=== PATIENT | male | born 1940 | race African-American/Black ===

== ENCOUNTER → 2017-09-03 | Outpatient (CLI) | payer MEDICARE | END | disposition home or self-care (01) | LOC: RAD 10:59 | DX: R07.89 Other chest pain (principal) | CPT/HCPCS: 71046 ==

== ENCOUNTER → 2018-08-18 | Outpatient (CLI) | payer MEDICARE ==
[2016-08-02 14:35] VITALS: BP 158/84
[~2018-08-18] MED LIST: AMLO10TA6 PO; CLON0.2T PO; HYDR-2145 PO; HYDR12.58 PO; IRBE1TAB3 PO; METO-269 PO; REGADENOSON 0.4 MG/5 ML DISP.SYRIN. IV ONE
--- NOTE | 2018-08-18 12:45 | CARD ---
MR#: [id number] Date of Study: 08/18/2018 Ordering Physician: REY FREEMAN, Referring Physician: REY FREEMAN, Tech: Brielle Munson APPROVED REPORT EXAM: Two-dimensional and M-mode echocardiogram with Doppler and color Doppler. Other Information Quality : AverageHR: 78bpm INDICATION Murmur RISK FACTORS Hypertension 2D DIMENSIONS RVDd3.7 (2.9-3.5cm)Left Atrium(2D)3.8 (1.6-4.0cm) IVSd1.4 (0.7-1.1cm)Aortic Root(2D)3.2 (2.0-3.7cm) LVDd5.1 (3.9-5.9cm)LVOT Diameter2.1 (1.8-2.4cm) PWd1.3 (0.7-1.1cm)LVDs2.8 (2.5-4.0cm) FS (%) 44.5 %SV93.4 ml Aortic Valve AoV Peak Chapo.137.1cm/sAoV VTI21.4cm AO Peak GR.7.5mmHgLVOT Peak Chapo.98.4cm/s LVOT VTI 20.87cmAO Mean GR.3mmHg NOE (VMAX)1.71kh3EQB (VTI)3.39cm2 Mitral Valve MV E Fiynrtyz08.7cm/sMV DECEL HBQM596ok MV A Sfrholow706.1cm/sMV HUV15rg E/A Ratio0.5MVA (PHT)4.07cm2 TDI E/Lateral E'7.1E/Medial E'8.9 Pulmonary Valve PV Peak Mzvaxdlm98.1cm/sPV Peak Grad.4mmHg Tricuspid Valve TR P. Avfwxeox590js/sRAP JWCKVTIX9hrRq TR Peak Gr.89zkMbRNXL20nmUo Pulmonary Vein S1 Ffvqxncv79.1cm/sD2 Llfatlxy72.3cm/s PVa ssdbjort481uhgk LEFT VENTRICLE The left ventricle is normal size. There is mild to moderate concentric left ventricular hypertrophy. The left ventricular systolic function is normal The Ejection Fraction is 55-60%. There is normal LV segmental wall motion. Transmitral Doppler flow pattern is Grade I-abnormal relaxation pattern. RIGHT VENTRICLE The right ventricle is normal size. There is normal right ventricular wall thickness. The right ventr icular systolic function is normal. ATRIA The left atrium is borderline dilated. The right atrium size is normal. 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 AORTIC VALVE The aortic valve is thickened but opens well. Doppler and Color Flow revealed trace aortic regurgitat ion. There is no significant aortic valvular stenosis. Calculated aortic valve area is 3.39 cm2 with maximum pressure gradient of 8 mmHg and mean pressure gradient of 3 mmHg. MITRAL VALVE The mitral valve is thickened but opens well. There is no evidence of mitral valve prolapse. There is no mitral valve stenosis. Doppler and Color Flow revealed trace mitral valve regurgitation. TRICUSPID VALVE The tricuspid valve leaflets are thickened , but open well. Doppler and Color Flow revealed trace tri cuspid regurgitation. There is no tricuspid valve stenosis. PULMONIC VALVE The pulmonic valve is not well visualized. Doppler and Color Flow revealed trace pulmonic valvular re gurgitation. GREAT VESSELS The aortic root is normal in size. The IVC was not well visualized. PERICARDIAL EFFUSION There is no evidence of significant pericardial effusion. Critical Notification Critical Value: No <Conclusion> The left ventricle is normal size. The left ventricular systolic function is normal The Ejection Fraction is 55-60%. There is mild to moderate concentric left ventricular hypertrophy. There is no significant aortic valvular stenosis. Calculated aortic valve area is 3.39 cm2 with maximum pressure gradient of 8 mmHg and mean pressure g radient of 3 mmHg. Doppler and Color Flow revealed trace aortic regurgitation. Doppler and Color Flow revealed trace mitral valve regurgitation. Doppler and Color Flow revealed trace tricuspid regurgitation. Signed by : Hugh Graham MD Electronically Approved : 08/18/2018 12:43:39
--- NOTE | 2018-08-18 13:35 | RAD ---
MR#: [id number] Date of Study: 08/18/2018 Ordering Physician: REY FREEMAN Referring Physician: LUIS CARLOS LIGHT Tech: RT Salo (R) (N) APPROVED REPORT Test Type: Pharmacological Stress Nurse/Tech: Kathryn GONCALVES Test Indications: Dyspnea on exertion Cardiac History: HTN, See EMR Medications: ASA 81mg, See EMR Medical History: See EMR Resting ECG: SR with PVCs Resting Heart Rate: 69 bpm Resting Blood Pressure: 143/79mmHg Pretest Chest Pain: No chest pain Nurse/Tech Notes Lungs CTA, Heart tones regular Consent: The procedure was explained to the patient in lay terms. Informed consent was witnessed. Nash eout was entered into [employer]. History and Stress Test performed by RYAN Linton Pharm. Details Pharmacologic stress testing was performed using 0.4mg per 5ml of regadenoson given intravenously ove r 7-10 seconds. Stress Symptoms No chest pain or symptoms. POST EXERCISE Reason for Termination: Infusion complete Max HR: 183 bpm Max Blood Pressure: 139/72mmHg Chest Pain: No. Arrhythmia: Yes. Frequent PVCs before and during stress test. ST Change: No. INTERPRETATION Stress EKG Conclusion: Baseline EKG showed sinus rhythm, LVH and PVC. No ischemic changes at peak st ress. PVC's without any significant arrhythmias. Imaging Protocol IMAGE PROTOCOL: Rest Tc-99m/stress Tc-99m 1 day Rest: Stress: Viability: Radiopharm.Tc99m OptpkiibkDz25v Sestamibi Dose10.4mCi 33.1mCi Duration 13min. 13min. Img Date 08/18/2018 08/18/2018 Inj-Img Psya34lfs. 60min. Rest Admin Site:IV - Left AntecubitalAdministrator:RT Salo (R)(N) Stress Admin Site: IV - Left AntecubitalAdministrator: RYAN Linton STRESS DATA End Diast. Vol.122.0mlLVEDV index BSA52.0ml End Syst. Vol.48.0mlLVESV index BSA21.0ml Myocardial Aijv014.0gEject. Eicimube08.0% Stress Scores Regional WT1.00Summed WT3.00 Regional WM0.00Summed WM5.00 Study quality was good. Left Ventricular size was Normal at Rest and Stress. Lung uptake was . Left Ventricular ejection fraction is 61%. The rest and stress images show normal perfusion, normal contraction and thickening. LV Perf. Quant 17 Seg. SSS0.00 17 Seg. SRS1.00 17 Seg. SDS0.00 Stress Defect Extent (% LAD)0.00Rest Defect Extent (% LAD)0.00Rev. Defect Extent (% LAD)0.00 Stress Defect Extent (% LCX) 0.00Rest Defect Extent (% LCX)5.00Rev. Defect Extent (% LCX)0.00 Stress Defect Extent (% RCA)0.00Rest Defect Extent (% RCA)8.90Rev. Defect Extent (% RCA)0.00 Stress Defect Extent (% ANA M)0.00Rest Defect Extent (% ANA M)2.80Rev. Defect Extent (% ANA M)0.00 Conclusion 1. Regadenoson cardioisotope stress test did not show any evidence of ischemia or infarct. 2. Normal left ventricular systolic function with ejection fraction calculated at 61%. 3. Low risk for cardiac events. Signed by : Rey Freeman, Electronically Approved : 08/18/2018 13:33:38
--- NOTE | 2018-08-18 13:51 | RAD ---
MR#: [id number] Date of Study: 08/18/2018 Ordering Physician: REY FREEMAN, Referring Physician: REY FREEMAN, Tech: Joby Cook, AMANDA, RDMS, RVT, RDCS, RTR APPROVED REPORT Patient Location : OUT-PATIENT Indications venous insufficiency Findings Grayscale images of the bilateral saphenofemoral junctions do not reveal any obvious evidence of thro mbus. The right great saphenous vein measures 6.4 mm and does not reflux. The left great saphenous vein saul sures 7.2 mm and does not reflux. The bilateral lesser saphenous veins do not show any evidence of re flux. Critical Notification Critical Value: No <Conclusion> No significant reflux. Signed by : Peirco Hood, Electronically Approved : 08/18/2018 13:49:07
== END | disposition home or self-care (01) ==
LOC: NM 09:10
PROVIDERS: ATTEND Internal Medicine Cardiovascular Disease
DX: I87.2 Venous insufficiency (chronic) (peripheral) (principal); I11.9 Hypertensive heart disease without heart failure
CPT/HCPCS: 78452; 93017; 93306; 93970; 96374; A9500; J2785

== ENCOUNTER 2019-06-06 16:57 | Emergency (ER) | payer MEDICARE ==
[~2019-06-06] VITALS: Ht 182.9 cm; Wt 113.4 kg
[~2019-06-06 16:57] MED LIST changes: -AMLO10TA6 PO; +AMLO10TA8 PO; -REGADENOSON 0.4 MG/5 ML DISP.SYRIN. IV ONE
[2019-06-06 18:00] LABS: BASO % 1 % (0-3); EOS # 0.1 x10^3/uL (0.0-0.7); EOS % 4 % (0-3); HEMATOCRIT 42.4 % (39.0-53.0); HEMOGLOBIN 14.2 g/dL (13.0-17.5); LYMPH # 0.8 x10^3/uL (1.0-4.8); LYMPH % 19 % (24-48); MEAN CORPUSCULAR HEMOGLOBIN 29 pg (25-35); MEAN CORPUSCULAR HGB CONC 34 g/dL (31-37); MEAN CORPUSCULAR VOLUME 87 fL (79-100); MONO # 0.5 x10^3/uL (0.0-1.1); MONO % 13 % (0-9); NEUT # 2.6 x10^3/uL (1.8-7.7); NEUT % 64 % (31-73); PLATELET COUNT 286 x10^3/uL (140-400); RED BLOOD COUNT 4.87 x10^6/uL (4.30-5.70); RED CELL DISTRIBUTION WIDTH 15.3 % (11.5-14.5); WHITE BLOOD COUNT 4.1 x10^3/uL (4.0-11.0)
[2019-06-06 18:12] LABS: CALCIUM 9.3 mg/dL (8.5-10.1); CREATININE 1.1 mg/dL (0.7-1.3); GFR 78.3; POTASSIUM 3.9 mmol/L (3.5-5.1)
[2019-06-06 18:13] LABS: PROTHROMBIN TIME PATIENT 13.4 SEC (11.7-14.0)
[2019-06-06 18:21] LABS: ALBUMIN 3.5 g/dL (3.4-5.0); ALBUMIN/GLOBULIN RATIO 0.6 (1.0-1.7); TOTAL BILIRUBIN 0.3 mg/dL (0.2-1.0); TOTAL PROTEIN 9.2 g/dL (6.4-8.2)
[2019-06-06 19:38] VITALS: BP 151/92
--- NOTE | 2019-06-06 19:43 | RAD ---
EXAM: AP View of the chest DATE: 06/06/2019 5:59 PM INDICATION: Bilateral lower extremity swelling COMPARISON: 09/03/2017 FINDINGS/ IMPRESSION: Heart is mildly enlarged. Aorta is tortuous. High density rounded hilar and right lung base nodules likely calcified granuloma. No focal parenchymal airspace opacity. No pleural effusion or pneumothorax. Electronically signed by: Taye Gross MD (06/06/2019 7:40 PM) [facility] – [place]
--- NOTE | 2019-06-06 19:46 | RAD ---
Examination: Bilateral Lower Extremity Venous Doppler Ultrasound History: Bilateral leg swelling Comparison: None Procedure: Raya scale, color flow 2D and spectal waveform analysis images are obtained with and without compression in the area of the common femoral vein, superficial femoral vein - femoral vein junction, main femoral vein (superficial femoral vein) and popliteal vein. Veins of the proximal calf are also imaged. Findings: There is normal duplex flow, color flow and compressibility of all visualized vein segments. No evidence of deep venous thrombus is present. Limited visualization of the left leg peroneal and posterior tibialis veins. Mild soft tissue edema bilateral lower legs. Impression: No evidence of DVT in the bilateral lower extremity. Electronically signed by: Subhash Mcfarland MD (06/06/2019 7:43 PM) [facility]
--- NOTE | 2019-06-06 19:53 | PHYS DOC ---
Past Medical History Past Medical History: Hypertension, Other Additional Past Medical Histor: urinary retention, prostate and bladder ca Past Surgical History: Cancer Surgery, Cholecystectomy, Other Additional Past Surgical Histo: bladder and prostate, rt eye cataract Alcohol Use: None Drug Use: None Adult General Chief Complaint Chief Complaint: LOWER EXTREMITY SWELLING HPI HPI Patient is a 78 year old AA male, accompanied by his family, who presents to the ER with complaints of bilateral lower extremity swelling and bilateral lower extremity weakness for the last week. PT states the weakness is worse in his RLE than his LLE. He states that his primary care doctor placed him on a muscle relaxer and prescribed some pain medication to him a few days ago for the same problems. Pt denies any chest pain, shortness of breath, fever, cough, nausea, vomiting, diarrhea, abdominal pain, or back pain. He denies any erythema, warmth, or drainage from his lower legs. PT denies any recent travel or extended period of time in bed. He currently denies any pain. Pt states he takes lasix but denies any hx of CHF and is not sure why he takes this medication. Review of Systems Review of Systems Constitutional: Denies fever or chills [] Eyes: Denies change in visual acuity, redness, or eye pain [] HENT: Denies nasal congestion or sore throat [] Respiratory: Denies cough or shortness of breath [] Cardiovascular: No additional information not addressed in HPI [] GI: Denies abdominal pain, nausea, vomiting, or diarrhea [] : Denies dysuria or hematuria [] Musculoskeletal: see HPI Integument: Denies rash or skin lesions [] Neurologic: Denies headache, focal weakness or sensory changes [] Endocrine: Denies polyuria or polydipsia [] Complete systems were reviewed and found to be within normal limits, except as documented in this note. Allergies Allergies Allergies Coded Allergies Type Severity Reaction Last Updated Verified No Known Drug Allergies 03/01/14 No Physical Exam Physical Exam Constitutional: Well developed, well nourished, no acute distress, non-toxic appearance. [] HENT: Normocephalic, atraumatic, bilateral external ears normal, nose normal. [] Eyes: PERRLA, EOMI, conjunctiva normal, no discharge. [] Neck: Normal range of motion, no stridor. [] Cardiovascular:Heart rate regular rhythm, no murmur [] Lungs & Thorax: Bilateral breath sounds clear to auscultation [] Abdomen: Bowel sounds normal, soft, no tenderness, no masses, no pulsatile masses. [] Skin: Warm, dry, no erythema, no rash. [] Extremities: No tenderness, no cyanosis, no clubbing, ROM intact; 2+ edema of bilateral lower extremities, slightly worse on the left than the right, no warmth, drainage, or erythema Neurologic: Alert and oriented X 3, normal motor function, normal sensory function, no focal deficits noted. [] Psychologic: Affect normal, judgement normal, mood normal. [] Current Patient Data Vital Signs Vital Signs Date Time Temp Pulse Resp B/P (MAP) Pulse Ox O2 Delivery O2 Flow Rate FiO2 06/06/19 19:38 88 5 151/92 (111) 96 Room Air 06/06/19 17:20 98.1 98.1 Lab Values Laboratory Tests Test 06/06/19 17:46 White Blood Count 4.1 x10^3/uL (4.0-11.0) Red Blood Count 4.87 x10^6/uL (4.30-5.70) Hemoglobin 14.2 g/dL (13.0-17.5) Hematocrit 42.4 % (39.0-53.0) Mean Corpuscular Volume 87 fL (79-100) Mean Corpuscular Hemoglobin 29 pg (25-35) Mean Corpuscular Hemoglobin Concent 34 g/dL (31-37) Red Cell Distribution Width 15.3 % (11.5-14.5) H Platelet Count 286 x10^3/uL (140-400) Neutrophils (%) (Auto) 64 % (31-73) Lymphocytes (%) (Auto) 19 % (24-48) L Monocytes (%) (Auto) 13 % (0-9) H Eosinophils (%) (Auto) 4 % (0-3) H Basophils (%) (Auto) 1 % (0-3) Neutrophils # (Auto) 2.6 x10^3/uL (1.8-7.7) Lymphocytes # (Auto) 0.8 x10^3/uL (1.0-4.8) L Monocytes # (Auto) 0.5 x10^3/uL (0.0-1.1) Eosinophils # (Auto) 0.1 x10^3/uL (0.0-0.7) Basophils # (Auto) 0.0 x10^3/uL (0.0-0.2) Prothrombin Time 13.4 SEC (11.7-14.0) Prothrombin Time INR 1.1 (0.8-1.1) Activated Partial Thromboplast Time 30 SEC (24-38) Sodium Level 140 mmol/L (136-145) Potassium Level 3.9 mmol/L (3.5-5.1) Chloride Level 101 mmol/L (98-107) Carbon Dioxide Level 30 mmol/L (21-32) Anion Gap 9 (6-14) Blood Urea Nitrogen 13 mg/dL (8-26) Creatinine 1.1 mg/dL (0.7-1.3) Estimated GFR (Cockcroft-Gault) 78.3 BUN/Creatinine Ratio 12 (6-20) Glucose Level 93 mg/dL (70-99) Calcium Level 9.3 mg/dL (8.5-10.1) Total Bilirubin 0.3 mg/dL (0.2-1.0) Aspartate Amino Transferase (AST) 20 U/L (15-37) Alanine Aminotransferase (ALT) 21 U/L (16-63) Alkaline Phosphatase 117 U/L (46-116) H Creatine Kinase 322 U/L (39-308) H Creatine Kinase MB (Mass) 2.5 ng/mL (0.0-3.6) Creatine Kinase MB Relative Index 0.8 % (0-4) Troponin I Quantitative < 0.017 ng/mL (0.000-0.055) EN-Wlj-B-Type Natriuretic Peptide 22 pg/mL (0-449) Total Protein 9.2 g/dL (6.4-8.2) H Albumin 3.5 g/dL (3.4-5.0) Albumin/Globulin Ratio 0.6 (1.0-1.7) L Laboratory Tests 06/06/19 17:46 Laboratory Tests 06/06/19 17:46 EKG EKG 1719- SR rate 92, no STEMI, prolonged AL interval, Left atrial abnormality, left axis deviation, read by Dr. Ogden. [] Radiology/Procedures Radiology/Procedures PROCEDURE: CHEST AP ONLY EXAM: AP View of the chest DATE: 06/06/2019 5:59 PM INDICATION: Bilateral lower extremity swelling COMPARISON: 09/03/2017 FINDINGS/ IMPRESSION: Heart is mildly enlarged. Aorta is tortuous. High density rounded hilar and right lung base nodules likely calcified granuloma. No focal parenchymal airspace opacity. No pleural effusion or pneumothorax.[] PROCEDURE: VENOUS LOWER EXT BILATERAL Examination: Bilateral Lower Extremity Venous Doppler Ultrasound History: Bilateral leg swelling Comparison: None Procedure: Raya scale, color flow 2D and spectal waveform analysis images are obtained with and without compression in the area of the common femoral vein, superficial femoral vein - femoral vein junction, main femoral vein (superficial femoral vein) and popliteal vein. Veins of the proximal calf are also imaged. Findings: There is normal duplex flow, color flow and compressibility of all visualized vein segments. No evidence of deep venous thrombus is present. Limited visualization of the left leg peroneal and posterior tibialis veins. Mild soft tissue edema bilateral lower legs. Impression: No evidence of DVT in the bilateral lower extremity. Course & Med Decision Making Course & Med Decision Making Pertinent Labs and Imaging studies reviewed. (See chart for details) dx: swelling of bilateral lower extremities ddx: cellulitis, DVT CHF CBC unremarkable, CMP: alk phos 117, Ck 322 otherwise unremarkable. PT/INR WNL CXR no acute findings. EKG no acute changes US BLE negative for DVT PT's VSS, pt states he feels like he is able to care for himself at home and feels safe being discharged to home. Instructed pt to continue taking his medications as prescribed and to follow up with primary care doctor this week for re-evaluation. Return to the ER if symptoms worsen. Patient and his family member verbalized an understanding of home care, medications, follow-up, and return to ED instructions and were in agreement with the plan of care. [] Dragon Disclaimer Dragon Disclaimer This electronic medical record was generated, in whole or in part, using a voice recognition dictation system. Departure Departure Impression: Primary Impression: Left leg swelling Additional Impression: Right leg swelling Disposition: HOME, SELF-CARE Condition: STABLE Referrals: [facility] SENIOR ACCOUNTING CLERK (PCP) Patient Instructions: Peripheral Edema Additional Instructions: The ultrasound of your legs was negative for any blood clots, your blood work and physical exam was not concerning for any underlying infection. Continue taking your medications as prescribed. Follow up with your primary care doctor in the next 1-2 days. Return to the ER if your symptoms worsen. Problem Qualifiers KAMI MIMS PLATE SLITTER AND INSPECTOR Jun 06, 2019 19:52
--- NOTE | 2019-06-07 06:15 | EKG ---
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
== END 2019-06-06 20:08 | disposition home or self-care (01) ==
LOC: ER 16:57
DX: R22.43 Localized swelling, mass and lump, lower limb, bilateral (principal); R53.1 Weakness; I10 Essential (primary) hypertension; Z90.49 Acquired absence of other specified parts of digestive tract; Z98.890 Other specified postprocedural states
CPT/HCPCS: 36415; 71045; 80053; 82553; 83880; 84484; 85025; 85610; 85730; 93005; 93970; 99285-25

== ENCOUNTER 2020-03-24 11:33 | Inpatient (IN) | payer MEDICARE ==
[~2020-03-24] VITALS: Ht 182.9 cm; Wt 107.5 kg
[2020-03-24 12:23] LABS: BILIRUBIN,URINE NEGATIVE (NEG); CLARITY,URINE CLEAR; COLOR,URINE YELLOW; NITRITE,URINE NEGATIVE (NEG); PROTEIN,URINE NEGATIVE (NEG-TRACE)
[2020-03-24 12:27] LABS: BASO % 0 % (0-3); EOS % 0 % (0-3); HEMATOCRIT 39.9 % (39.0-53.0); HEMOGLOBIN 13.5 g/dL (13.0-17.5); LYMPH # 0.5 x10^3/uL (1.0-4.8); LYMPH % 6 % (24-48); MEAN CORPUSCULAR HEMOGLOBIN 30 pg (25-35); MEAN CORPUSCULAR HGB CONC 34 g/dL (31-37); MEAN CORPUSCULAR VOLUME 88 fL (79-100); MONO # 0.7 x10^3/uL (0.0-1.1); MONO % 9 % (0-9); NEUT # 6.9 x10^3/uL (1.8-7.7); NEUT % 86 % (31-73); PLATELET COUNT 272 x10^3/uL (140-400); RED BLOOD COUNT 4.56 x10^6/uL (4.30-5.70); RED CELL DISTRIBUTION WIDTH 14.6 % (11.5-14.5)
--- NOTE | 2020-03-24 12:31 | EKG ---
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
[2020-03-24 12:32] LABS: CALCIUM 8.5 mg/dL (8.5-10.1); CREATININE 1.3 mg/dL (0.7-1.3); GFR 64.4
--- NOTE | 2020-03-24 12:32 | PHYS DOC ---
Past Medical History Past Medical History: Hypertension Additional Past Medical Histor: urinary retention, prostate and bladder ca Past Surgical History: No Surgical History Additional Past Surgical Histo: bladder and prostate, rt eye cataract Smoking Status: Never Smoker Alcohol Use: None Drug Use: None General Adult EDM: Chief Complaint: WEAKNESS/GENERALIZED HPI: HPI: Patient is a 79 year old male with history of hypertension who presents to the ED today to be evaluated for generalized weakness. Patient presents via EMS. He states this morning he was trying to walk to get to his blood pressure medicines. He states his left leg got weak and he fell down. Denies hitting his head on the ground but states he hit his left shoulder on the ground. He states he has history of chronic neck pain and is currently in a c-collar. He states his pain is hurting as well. Denies any chest pain or shortness of breath. Denies any loss of consciousness. Denies being on any anticoagulants. Patient reports being seen in a different ED and treated for UTI 3 days ago. Review of Systems: Review of Systems: Constitutional: Denies fever or chills. [] Eyes: Denies change in visual acuity. [] HENT: Denies nasal congestion or sore throat. [] Respiratory: Denies cough or shortness of breath. [] Cardiovascular: Denies chest pain or edema. [] GI: Denies abdominal pain, nausea, vomiting, bloody stools or diarrhea. [] : Denies dysuria. [] Musculoskeletal: Reports left shoulder pain and neck pain chronic in nature. Denies back pain Integument: Denies rash. [] Neurologic: Reports weakness. Denies headache, focal weakness or sensory changes. [] Psychiatric: Denies depression or anxiety. [] Heart Score: Risk Factors: Risk Factors: DM, Current or recent (<one month) smoker, HTN, HLP, family history of CAD, obesity. Risk Scores: Score 0 - 3: 2.5% MACE over next 6 weeks - Discharge Home Score 4 - 6: 20.3% MACE over next 6 weeks - Admit for Clinical Observation Score 7 - 10: 72.7% MACE over next 6 weeks - Early Invasive Strategies Allergies: Allergies: Allergies Coded Allergies Type Severity Reaction Last Updated Verified No Known Drug Allergies 03/01/14 No Physical Exam: PE: Constitutional: Obese patient. Well developed, well nourished, no acute distress, non-toxic appearance. [] HENT: Normocephalic, atraumatic, bilateral external ears normal, oropharynx moist, no oral exudates, nose normal. [] Eyes: PERRLA, EOMI, conjunctiva normal, no discharge. [] Neck: C-collar present. Tenderness on palpation of the left as well as right paraspinal muscles of the cervical spine. Normal range of motion, no tenderness, supple, no stridor. [] Cardiovascular:Heart rate regular rhythm, no murmur [] Lungs & Thorax: Bilateral breath sounds clear to auscultation [] Abdomen: Bowel sounds normal, soft, no tenderness, no masses, no pulsatile masses. [] Skin: Very dry flaky skin Back: No tenderness, no CVA tenderness. [] Extremities: No tenderness, no cyanosis, no clubbing, ROM intact, no edema. [] Neurologic: Alert and oriented X 3, normal motor function, normal sensory function, no focal deficits noted. Cranial nerves II through XII intact Psychologic: Affect normal, judgement normal, mood normal. [] Current Patient Data: Vital Signs: Vital Signs Date Time Temp Pulse Resp B/P (MAP) Pulse Ox O2 Delivery O2 Flow Rate FiO2 03/24/20 11:40 98.8 96 22 155/75 (101) 97 Room Air 98.8 EKG: EKG: [] Radiology/Procedures: Radiology/Procedures: []PROCEDURE: PORTABLE CHEST 1V PORTABLE CHEST 1V INDICATION: weakness . COMPARISON STUDY: 06/06/2019. FINDINGS: Lungs: Normal lung volume. No pulmonary mass or consolidation. The tracheobronchial tree and hilar structures are normal. Pleura: No pleural effusion or pneumothorax. Heart and Mediastinum: Cardiomegaly. Tortuous thoracic aorta. IMPRESSION: No acute cardiopulmonary process. Electronically signed by: Antonio Velasquez MD (03/24/2020 2:34 PM) [id number] DICTATED and SIGNED BY: ANTONIO VELASQUEZ MD DATE: 03/24/20 1434 PROCEDURE: CT HEAD AND CERVICAL SPINE WO CT HEAD AND CERVICAL SPINE WO Date: 03/24/2020 12:19 PM Clinical Indication: fall pain, weakness Comparison: None. Technique: 5 mm axial tomographic images were obtained of the head without contrast. These were viewed on brain and bone windows. Noncontrast CT of the cervical spine was performed. Sagittal and coronal reformats were performed and evaluated. One or more of the following dose reduction techniques were utilized: Automated exposure control (AEC), Adjustment of mA and/or kV according to patient size, Use of iterative reconstruction technique such as ASiR, CT scan done according to ALARA and image gently/image wisely HEAD FINDINGS: Mild generalized cerebral and cerebellar volume loss. Mild nonspecific periventricular hypoattenuation, most commonly seen with chronic small vessel ischemic disease. No intra- or extra-axial mass or fluid collection. No acute hemorrhage. The ventricles are normal in size, shape, and morphology. The castellon-white matter junction is normal. The basilar cisterns are patent. The visualized paranasal sinuses are normal. The visualized portions of the orbits and globes are normal. The mastoid air cells are clear. No aggressive osseous lesion or fracture. CERVICAL SPINE FINDINGS: Straightening of the cervical lordosis. No acute fracture. No aggressive lytic or blastic osseous lesions. Severe multilevel degenerative disc space height loss. Multilevel mild and moderate spinal canal stenosis secondary to disc protrusions and marginal osteophytes. Multilevel moderate to severe neuroforaminal narrowing secondary to uncovertebral arthrosis. Multilevel moderate to severe facet arthrosis. The thyroid gland is normal. No cervical lymphadenopathy. Bilateral carotid atherosclerosis. The visualized aerodigestive tract is normal. The visualized portions of the lungs are clear. IMPRESSION: 1. No acute intracranial process. 2. No acute cervical spine fracture. Electronically signed by: Antonio Velasquez MD (03/24/2020 12:51 PM) [id number] DICTATED and SIGNED BY: ANTONIO VELASQUEZ MD DATE: 03/24/20 125 PROCEDURE: SHOULDER 2+V LEFT SHOULDER 2+V LEFT DATE: 03/24/2020 11:46 AM INDICATION: weakness. left shoulder pain / Spl. Instructions: / History: COMPARISON: None. FINDINGS: Bones: There is no evidence of acute fracture or dislocation. Joints: Moderate degenerative changes of the acromioclavicular and glenohumeral joints. The acromiohumeral distance is not narrowed. Miscellaneous: No abnormal soft tissue calcifications in the shoulder. IMPRESSION: No evidence of acute fracture. Electronically signed by: Antonio Velasquez MD (03/24/2020 2:38 PM) [id number] DICTATED and SIGNED BY: ANTONIO VELASQUEZ MD DATE: 03/24/20 1430 Course & Med Decision Making: Course & Med Decision Making Pertinent Labs and Imaging studies reviewed. (See chart for details) This is a 79-year-old male patient presenting to the ED today to be evaluated after falling. Patient reports being weak specifically in the left lower extremity and falling. Patient was seen at a different ED 3 days ago and was diagnosed with UTI. He is still on antibiotics. CBC with no acute findings, CMP with potassium of 3.0, patient was given oral potassium replacement. Urine analysis negative for infection. CT of the head and cervical spine are negative. Chest x-ray and left shoulder x-rays are negative for any acute findings. Dr. Aguilar accepted patient for admission Dragon Disclaimer: Malia Disclaimer: This electronic medical record was generated, in whole or in part, using a voice recognition dictation system. Departure Departure Impression: Primary Impression: Fall Qualified Codes: W19.XXXA - Unspecified fall, initial encounter Additional Impressions: Weakness Hypokalemia Disposition: ADMITTED INPATIENT Condition: STABLE Referrals: [facility] (PCP) Justicifation of Admission Dx: Justifications for Admission: Justification of Admission Dx: Yes Comments: fall, weakness NEIL ANDRE AUDIO INSTALLER Mar 24, 2020 12:32
[2020-03-24 12:35] LABS: ALBUMIN/GLOBULIN RATIO 0.6 (1.0-1.7); MAGNESIUM 1.9 mg/dL (1.8-2.4); TOTAL BILIRUBIN 0.6 mg/dL (0.2-1.0); TOTAL PROTEIN 8.2 g/dL (6.4-8.2)
[2020-03-24 12:36] LABS: AMORPHOUS SEDIMENT,UR PRESENT /HPF; BACTERIA,URINE 0 /HPF (0-FEW); RBC,URINE 0 /HPF (0-2); SQUAMOUS EPITHELIAL CELL,UR MOD /LPF
--- NOTE | 2020-03-24 12:53 | RAD ---
CT HEAD AND CERVICAL SPINE WO Date: 03/24/2020 12:19 PM Clinical Indication: fall pain, weakness Comparison: None. Technique: 5 mm axial tomographic images were obtained of the head without contrast. These were viewed on brain and bone windows. Noncontrast CT of the cervical spine was performed. Sagittal and coronal reformats were performed and evaluated. One or more of the following dose reduction techniques were utilized: Automated exposure control (AEC), Adjustment of mA and/or kV according to patient size, Use of iterative reconstruction technique such as ASiR, CT scan done according to ALARA and image gently/image wisely HEAD FINDINGS: Mild generalized cerebral and cerebellar volume loss. Mild nonspecific periventricular hypoattenuation, most commonly seen with chronic small vessel ischemic disease. No intra- or extra-axial mass or fluid collection. No acute hemorrhage. The ventricles are normal in size, shape, and morphology. The castellon-white matter junction is normal. The basilar cisterns are patent. The visualized paranasal sinuses are normal. The visualized portions of the orbits and globes are normal. The mastoid air cells are clear. No aggressive osseous lesion or fracture. CERVICAL SPINE FINDINGS: Straightening of the cervical lordosis. No acute fracture. No aggressive lytic or blastic osseous lesions. Severe multilevel degenerative disc space height loss. Multilevel mild and moderate spinal canal stenosis secondary to disc protrusions and marginal osteophytes. Multilevel moderate to severe neuroforaminal narrowing secondary to uncovertebral arthrosis. Multilevel moderate to severe facet arthrosis. The thyroid gland is normal. No cervical lymphadenopathy. Bilateral carotid atherosclerosis. The visualized aerodigestive tract is normal. The visualized portions of the lungs are clear. IMPRESSION: 1. No acute intracranial process. 2. No acute cervical spine fracture. Electronically signed by: Jack Velasquez MD (03/24/2020 12:51 PM) [id number]
[2020-03-24 14:29] LABS: % LYMPHS 12 % (24-48); % MONOS 10 % (0-10); % SEGS 78 % (35-66); PLT ESTIMATE ADEQUATE (ADEQUATE)
--- NOTE | 2020-03-24 14:37 | RAD ---
PORTABLE CHEST 1V INDICATION: weakness . COMPARISON STUDY: 06/06/2019. FINDINGS: Lungs: Normal lung volume. No pulmonary mass or consolidation. The tracheobronchial tree and hilar structures are normal. Pleura: No pleural effusion or pneumothorax. Heart and Mediastinum: Cardiomegaly. Tortuous thoracic aorta. IMPRESSION: No acute cardiopulmonary process. Electronically signed by: Jack Velasquez MD (03/24/2020 2:34 PM) [id number]
--- NOTE | 2020-03-24 14:40 | RAD ---
SHOULDER 2+V LEFT DATE: 03/24/2020 11:46 AM INDICATION: weakness. left shoulder pain / Spl. Instructions: / History: COMPARISON: None. FINDINGS: Bones: There is no evidence of acute fracture or dislocation. Joints: Moderate degenerative changes of the acromioclavicular and glenohumeral joints. The acromiohumeral distance is not narrowed. Miscellaneous: No abnormal soft tissue calcifications in the shoulder. IMPRESSION: No evidence of acute fracture. Electronically signed by: Jack Velasquez MD (03/24/2020 2:38 PM) [id number]
[2020-03-24] MEDS ORDERED: POTASSIUM CHLORIDE 20 MEQ TABLET.ER. PO ONE ×2 (14:45→19:45)
[2020-03-24] MEDS ORDERED: ACETAMINOPHEN 325 MG TABLET. PO PRN (14:45)
[2020-03-24] MEDS ORDERED: ONDANSETRON PF 4 MG/2 ML VIAL. IV PRN (14:45)
--- NOTE | 2020-03-24 19:09 | PDOC1 ---
History and Physical Date of Admission Date of Admission DATE: 03/24/20 TIME: 19:08 Identification/Chief Complaint Chief Complaint Weakness Source Source: Patient History of Present Illness History of Present Illness Patient is a 70 yo male with PMHx of prostate cancer, who presents with complaint of worsening weakness for the past week. States his weakness is mostly in his legs, with associated throbbing neck pain, 8/10, and left hand numbness. His symptoms started one week ago with a "crook" in his neck. He was seen at [facility] and prescribed a muscle relaxer and pain medication without improvement. His symptoms progressed to the point of suffering a fall at home, which prompted his ED visit. He denies any prior injury to his neck.Denies any fever or unintentional weight-loss. Past Medical History Cardiovascular: HTN Heme/Onc: Cancer Past Surgical History Past Surgical History: Other (Eye surgery) Family History Family History: No Significant Social History Smoke: No ALCOHOL: none Drugs: None Current Problem List Problem List Problems Medical Problems: (1) Fall Status: Acute (2) Hypokalemia Status: Acute (3) Weakness Status: Acute Current Medications Current Medications Current Medications Ondansetron HCl (Zofran) 4 mg PRN Q8HRS PRN IV NAUSEA/VOMITING; Start 03/24/20 at 14:45; Stop 03/25/20 at 14:44 Acetaminophen (Tylenol) 650 mg PRN Q4HRS PRN PO FEVER > 100.3'F; Start 03/24/20 at 14:45; Stop 03/25/20 at 14:44 Potassium Chloride (Klor-Con) 40 meq 1X ONCE PO Last administered on 03/24/20at 16:06; Start 03/24/20 at 14:45; Stop 03/24/20 at 14:49; Status DC Active Scripts Active Reported Hydrochlorothiazide Tablet (Hydrochlorothiazide) 12.5 Mg Tablet 12.5 Mg PO DAILY Amlodipine Besylate 10 Mg Tablet 10 Mg PO DAILY Clonidine Hcl 0.2 Mg Tablet 1 Tab PO QHS Allergies Allergies: Coded Allergies: No Known Drug Allergies (Unverified , 03/01/14) ROS General: No: Chills, Fatigue PSYCHOLOGICAL ROS: No: Anxiety, Depression Eyes: No Blurry vision, No Double vision HEENT: No: Heacaches, Visual Changes, Sore Throat ALLERGY AND IMMUNOLOGY: No: Hives, Itchy/Watery Eyes, Nasal Congestion Hematological and Lymphatic: No: Bleeding Problems, Brusing, Swollen Lymph Nodes Respiratory: No: Cough, Pleuritic Pain, Shortness of breath Cardiovascular: No Chest Pain, No Palpitations Gastrointestinal: No Nausea, No Vomiting, No Abdominal Pain Genitourinary: No Dysuria, No Flank Pain Musculoskeletal: Yes Other (Neck pain) Neurological: Yes Numbness/Tingling, Yes Weakness Skin: No Dry Skin, No Rash Physical Exam General: Alert, Oriented X3, Cooperative, No acute distress HEENT: PERRLA Lungs: Clear to auscultation, Normal air movement Heart: RRR, no murmurs Cardiovascular: S1, S2 Abdomen: Normal bowel sounds, No tenderness Extremities: No clubbing, No cyanosis, Other (2+ pitting edema bilateral legs) Skin: No rashes, No breakdown Neuro: Normal speech, Other (Strength 4/5 LUE, 5/5 in RUE ) Psych/Mental Status: Mental status NL, Mood NL Vitals Vitals Vital Signs Date Time Temp Pulse Resp B/P (MAP) Pulse Ox O2 Delivery O2 Flow Rate FiO2 03/24/20 18:00 84 23 96 03/24/20 16:19 99.0 99.0 03/24/20 11:40 155/75 (101) Room Air Labs Labs Laboratory Tests Test 03/24/20 11:50 03/24/20 14:40 03/24/20 17:50 White Blood Count 8.0 x10^3/uL (4.0-11.0) Red Blood Count 4.56 x10^6/uL (4.30-5.70) Hemoglobin 13.5 g/dL (13.0-17.5) Hematocrit 39.9 % (39.0-53.0) Mean Corpuscular Volume 88 fL (79-100) Mean Corpuscular Hemoglobin 30 pg (25-35) Mean Corpuscular Hemoglobin Concent 34 g/dL (31-37) Red Cell Distribution Width 14.6 % (11.5-14.5) Platelet Count 272 x10^3/uL (140-400) Neutrophils (%) (Auto) 86 % (31-73) Lymphocytes (%) (Auto) 6 % (24-48) Monocytes (%) (Auto) 9 % (0-9) Eosinophils (%) (Auto) 0 % (0-3) Basophils (%) (Auto) 0 % (0-3) Neutrophils # (Auto) 6.9 x10^3/uL (1.8-7.7) Lymphocytes # (Auto) 0.5 x10^3/uL (1.0-4.8) Monocytes # (Auto) 0.7 x10^3/uL (0.0-1.1) Eosinophils # (Auto) 0.0 x10^3/uL (0.0-0.7) Basophils # (Auto) 0.0 x10^3/uL (0.0-0.2) Segmented Neutrophils % 78 % (35-66) Lymphocytes % 12 % (24-48) Monocytes % 10 % (0-10) Platelet Estimate Adequate (ADEQUATE) Large Platelets Occ Prothrombin Time 15.0 SEC (11.7-14.0) Prothromb Time International Ratio 1.2 (0.8-1.1) Activated Partial Thromboplast Time 33 SEC (24-38) Urine Collection Type Unknown Urine Color Yellow Urine Clarity Clear Urine pH 7.0 (<5.0-8.0) Urine Specific [place] 1.010 (1.000-1.030) Urine Protein Negative mg/dL (NEG-TRACE) Urine Glucose (UA) Negative mg/dL (NEG) Urine Ketones (Stick) Negative mg/dL (NEG) Urine Blood Moderate (NEG) Urine Nitrite Negative (NEG) Urine Bilirubin Negative (NEG) Urine Urobilinogen Dipstick 1.0 mg/dL (0.2 mg/dL) Urine Leukocyte Esterase Negative (NEG) Urine RBC 0 /HPF (0-2) Urine WBC 1-4 /HPF (0-4) Urine Squamous Epithelial Cells Mod /LPF Urine Amorphous Sediment Present /HPF Urine Bacteria 0 /HPF (0-FEW) Urine Mucus Mod /LPF Sodium Level 138 mmol/L (136-145) Potassium Level 3.0 mmol/L (3.5-5.1) Chloride Level 99 mmol/L (98-107) Carbon Dioxide Level 31 mmol/L (21-32) Anion Gap 8 (6-14) Blood Urea Nitrogen 9 mg/dL (8-26) Creatinine 1.3 mg/dL (0.7-1.3) Estimated GFR (Cockcroft-Gault) 64.4 BUN/Creatinine Ratio 7 (6-20) Glucose Level 98 mg/dL (70-99) Calcium Level 8.5 mg/dL (8.5-10.1) Magnesium Level 1.9 mg/dL (1.8-2.4) Total Bilirubin 0.6 mg/dL (0.2-1.0) Aspartate Amino Transf (AST/SGOT) 33 U/L (15-37) Alanine Aminotransferase (ALT/SGPT) 20 U/L (16-63) Alkaline Phosphatase 110 U/L (46-116) Troponin I Quantitative < 0.017 ng/mL (0.000-0.055) < 0.017 ng/mL (0.000-0.055) < 0.017 ng/mL (0.000-0.055) Total Protein 8.2 g/dL (6.4-8.2) Albumin 3.0 g/dL (3.4-5.0) Albumin/Globulin Ratio 0.6 (1.0-1.7) Lipase 31 U/L (73-393) Thyroid Stimulating Hormone (TSH) 1.940 uIU/mL (0.358-3.74) Laboratory Tests Test 03/24/20 11:50 03/24/20 14:40 03/24/20 17:50 White Blood Count 8.0 x10^3/uL (4.0-11.0) Red Blood Count 4.56 x10^6/uL (4.30-5.70) Hemoglobin 13.5 g/dL (13.0-17.5) Hematocrit 39.9 % (39.0-53.0) Mean Corpuscular Volume 88 fL (79-100) Mean Corpuscular Hemoglobin 30 pg (25-35) Mean Corpuscular Hemoglobin Concent 34 g/dL (31-37) Red Cell Distribution Width 14.6 % (11.5-14.5) Platelet Count 272 x10^3/uL (140-400) Neutrophils (%) (Auto) 86 % (31-73) Lymphocytes (%) (Auto) 6 % (24-48) Monocytes (%) (Auto) 9 % (0-9) Eosinophils (%) (Auto) 0 % (0-3) Basophils (%) (Auto) 0 % (0-3) Neutrophils # (Auto) 6.9 x10^3/uL (1.8-7.7) Lymphocytes # (Auto) 0.5 x10^3/uL (1.0-4.8) Monocytes # (Auto) 0.7 x10^3/uL (0.0-1.1) Eosinophils # (Auto) 0.0 x10^3/uL (0.0-0.7) Basophils # (Auto) 0.0 x10^3/uL (0.0-0.2) Segmented Neutrophils % 78 % (35-66) Lymphocytes % 12 % (24-48) Monocytes % 10 % (0-10) Platelet Estimate Adequate (ADEQUATE) Large Platelets Occ Prothrombin Time 15.0 SEC (11.7-14.0) Prothromb Time International Ratio 1.2 (0.8-1.1) Activated Partial Thromboplast Time 33 SEC (24-38) Urine Collection Type Unknown Urine Color Yellow Urine Clarity Clear Urine pH 7.0 (<5.0-8.0) Urine Specific [place] 1.010 (1.000-1.030) Urine Protein Negative mg/dL (NEG-TRACE) Urine Glucose (UA) Negative mg/dL (NEG) Urine Ketones (Stick) Negative mg/dL (NEG) Urine Blood Moderate (NEG) Urine Nitrite Negative (NEG) Urine Bilirubin Negative (NEG) Urine Urobilinogen Dipstick 1.0 mg/dL (0.2 mg/dL) Urine Leukocyte Esterase Negative (NEG) Urine RBC 0 /HPF (0-2) Urine WBC 1-4 /HPF (0-4) Urine Squamous Epithelial Cells Mod /LPF Urine Amorphous Sediment Present /HPF Urine Bacteria 0 /HPF (0-FEW) Urine Mucus Mod /LPF Sodium Level 138 mmol/L (136-145) Potassium Level 3.0 mmol/L (3.5-5.1) Chloride Level 99 mmol/L (98-107) Carbon Dioxide Level 31 mmol/L (21-32) Anion Gap 8 (6-14) Blood Urea Nitrogen 9 mg/dL (8-26) Creatinine 1.3 mg/dL (0.7-1.3) Estimated GFR (Cockcroft-Gault) 64.4 BUN/Creatinine Ratio 7 (6-20) Glucose Level 98 mg/dL (70-99) Calcium Level 8.5 mg/dL (8.5-10.1) Magnesium Level 1.9 mg/dL (1.8-2.4) Total Bilirubin 0.6 mg/dL (0.2-1.0) Aspartate Amino Transf (AST/SGOT) 33 U/L (15-37) Alanine Aminotransferase (ALT/SGPT) 20 U/L (16-63) Alkaline Phosphatase 110 U/L (46-116) Troponin I Quantitative < 0.017 ng/mL (0.000-0.055) < 0.017 ng/mL (0.000-0.055) < 0.017 ng/mL (0.000-0.055) Total Protein 8.2 g/dL (6.4-8.2) Albumin 3.0 g/dL (3.4-5.0) Albumin/Globulin Ratio 0.6 (1.0-1.7) Lipase 31 U/L (73-393) Thyroid Stimulating Hormone (TSH) 1.940 uIU/mL (0.358-3.74) Images Images CERVICAL SPINE FINDINGS: Straightening of the cervical lordosis. No acute fracture. No aggressive lytic or blastic osseous lesions. Severe multilevel degenerative disc space height loss. Multilevel mild and moderate spinal canal stenosis secondary to disc protrusions and marginal osteophytes. Multilevel moderate to severe neuroforaminal narrowing secondary to uncovertebral arthrosis. Multilevel moderate to severe facet arthrosis. The thyroid gland is normal. No cervical lymphadenopathy. Bilateral carotid atherosclerosis. The visualized aerodigestive tract is normal. The visualized portions of the lungs are clear. IMPRESSION: 1. No acute intracranial process. 2. No acute cervical spine fracture. VTE Prophylaxis Ordered VTE Prophylaxis Devices: No VTE Pharmacological Prophylaxi: Yes Assessment/Plan Assessment/Plan Cervical spinal stenosis Hypokalemia Weakness Malnutrition Plan: Will evaluate cervical spinal stenosis with MRI. Given MRI findings, consult Neurosurgery for possible laminectomy or recommendations. Muscle relaxers and pain management. VTE prophylaxis. PT/OT. Full Code. Justifications for Admission Other Justification YAIR LINDO MD Mar 24, 2020 19:09
[2020-03-24] MEDS ORDERED: POTASSIUM BICARB 20 MEQ EFFERVESCENT TABLET. FT PRN (19:15)
[2020-03-24] MEDS ORDERED: POTASSIUM CHLORIDE 20 MEQ TABLET.ER. PO PRN (19:15)
[2020-03-24 20:15] VITALS: BP 156/78
--- NOTE | 2020-03-24 20:20 | NUR ---
Pt. just arrived from ED via bed w/ weakness and fall @ home. Can make some needs known.
[2020-03-24] MEDS: DOCUSATE SODIUM 100 MG CAPSULE. PO SCH (21:00)
[2020-03-24] MEDS: HEPARIN for SUB-Q USE 5,000 UNIT/ML VIAL. SQ SCH (22:52)
[2020-03-24 23:00] VITALS: BP 161/79
[2020-03-24] MEDS: HYDROcodone/APAP 5/325MG 1 TAB TABLET PO PRN (23:01)
[2020-03-24] MEDS ORDERED: FURO-68 PO (23:42)
[2020-03-24] MEDS ORDERED: CYCL10TA2 PO (23:42)
[2020-03-24] MEDS ORDERED: SULF1TAB24 PO (23:42)
[2020-03-24] MEDS ORDERED: ACET1TAB33 PO (23:42)
[2020-03-24] MEDS ORDERED: POTA20TA4 PO (23:42)
[2020-03-24] MEDS ORDERED: ACETAMINOPHEN/CODEINE 300/30MG TABLET. PO PRN (23:45)
[2020-03-24] MEDS: CYCLOBENZAPRINE 10 MG TABLET. PO PRN (23:54)
[2020-03-24] MEDS: cloNIDine HCL 0.2 MG TABLET PO SCH (23:54)
[2020-03-25 03:00] VITALS: BP 122/73
[2020-03-25 07:24] LABS: BASO % 1 % (0-3); EOS # 0.1 x10^3/uL (0.0-0.7); EOS % 2 % (0-3); HEMATOCRIT 37.8 % (39.0-53.0); HEMOGLOBIN 12.7 g/dL (13.0-17.5); LYMPH # 0.7 x10^3/uL (1.0-4.8); LYMPH % 12 % (24-48); MEAN CORPUSCULAR HEMOGLOBIN 29 pg (25-35); MEAN CORPUSCULAR HGB CONC 34 g/dL (31-37); MEAN CORPUSCULAR VOLUME 87 fL (79-100); MONO # 0.8 x10^3/uL (0.0-1.1); MONO % 13 % (0-9); NEUT # 4.5 x10^3/uL (1.8-7.7); NEUT % 73 % (31-73); PLATELET COUNT 258 x10^3/uL (140-400); RED BLOOD COUNT 4.37 x10^6/uL (4.30-5.70); RED CELL DISTRIBUTION WIDTH 14.6 % (11.5-14.5); WHITE BLOOD COUNT 6.2 x10^3/uL (4.0-11.0)
[2020-03-25 07:47] LABS: ALBUMIN 2.5 g/dL (3.4-5.0); ALBUMIN/GLOBULIN RATIO 0.5 (1.0-1.7); CALCIUM 8.8 mg/dL (8.5-10.1); GFR 87.2; POTASSIUM 3.6 mmol/L (3.5-5.1); TOTAL BILIRUBIN 0.7 mg/dL (0.2-1.0); TOTAL PROTEIN 7.5 g/dL (6.4-8.2)
[2020-03-25 07:59] VITALS: BP 141/78
[2020-03-25] MEDS: amLODIPine BESYLATE 10 MG TABLET PO SCH (09:00)
[2020-03-25] MEDS: SMZ/TMP 800/160MG TABLET. PO SCH ×2 (09:00→21:13)
[2020-03-25] MEDS: FUROSEMIDE 40 MG TABLET. PO SCH (10:35)
[2020-03-25] MEDS: DOCUSATE SODIUM 100 MG CAPSULE. PO SCH ×2 (10:35→21:13)
[2020-03-25] MEDS: HYDROcodone/APAP 5/325MG 1 TAB TABLET PO PRN ×2 (10:36→21:15)
[2020-03-25] MEDS: POTASSIUM CHLORIDE 20 MEQ TABLET.ER. PO SCH (10:36)
[2020-03-25] MEDS: HEPARIN for SUB-Q USE 5,000 UNIT/ML VIAL. SQ SCH ×2 (10:36→21:18)
--- NOTE | 2020-03-25 10:44 | NUR ---
Computer and closed on all meds that had been scanned but not saved. Had to administered all manually on computer.
[2020-03-25 11:59] VITALS: BP 144/75
--- NOTE | 2020-03-25 14:41 | PDOC ---
[facility] PROGRESS NOTE Date of Service DOS: DATE: 03/25/20 TIME: 14:34 Chief Complaint Chief Complaint Cervical spinal stenosis Hypokalemia Weakness Malnutrition Admit to medicine for further management Pending MRI Pending neuro evaluation Pending neurosurgery evaluation Pain control PT OT Heparin for DVT prophylaxis Not indicated GI prophylaxis ADA diet Full code Discussed with RN and SW Disposition pending neuro and neurosurgery evaluation Surrogate decision maker is the patient at this time History of Present Illness History of Present Illness 70 yo male with PMHx of prostate cancer, who presents with complaint of worsening weakness for the past week. States his weakness is mostly in his legs, with associated throbbing neck pain, 8/10, and left hand numbness. His symptoms started one week ago with a "crook" in his neck. He was seen at [facility] and prescribed a muscle relaxer and pain medication without improvement. His symptoms progressed to the point of suffering a fall at home, which prompted his ED visit. He denies any prior injury to his neck.Denies any fever or unintentional weight-loss. 03/25/2020 No acute events overnight. Patient continues to have neck pain and associated left upper extremity weakness and bilateral lower extremity weakness. No bladder or bowel incontinence. Patient's chart, labs, images were reviewed and discussed with RN Vitals/I&O Vitals/I&O: Vital Signs Date Time Temp Pulse Resp B/P (MAP) Pulse Ox O2 Delivery O2 Flow Rate FiO2 03/25/20 11:59 98.9 92 20 144/75 (98) 95 Room Air 98.9 Physical Exam Physical Exam: General: Alert, Oriented X3, Cooperative, No acute distress HEENT: PERRLA Lungs: Clear to auscultation, Normal air movement Heart: RRR, no murmurs Cardiovascular: S1, S2 Abdomen: Normal bowel sounds, No tenderness Extremities: 2+ pitting edema bilateral legs Skin: No rashes, No breakdown Neuro: Strength 2/5 LUE, 5/5 in RUE. Bilateral LE weakness Psych/Mental Status: Mental status NL, Mood NL General: Alert, Oriented X3, Cooperative, No acute distress Abdomen: Normal bowel sounds, No tenderness Extremities: No clubbing, No cyanosis, Other (2+ pitting edema bilateral legs) Skin: No rashes, No breakdown Labs Labs: Laboratory Tests Test 03/24/20 14:40 03/24/20 17:50 03/25/20 06:25 Troponin I Quantitative < 0.017 ng/mL (0.000-0.055) < 0.017 ng/mL (0.000-0.055) White Blood Count 6.2 x10^3/uL (4.0-11.0) Red Blood Count 4.37 x10^6/uL (4.30-5.70) Hemoglobin 12.7 g/dL (13.0-17.5) Hematocrit 37.8 % (39.0-53.0) Mean Corpuscular Volume 87 fL (79-100) Mean Corpuscular Hemoglobin 29 pg (25-35) Mean Corpuscular Hemoglobin Concent 34 g/dL (31-37) Red Cell Distribution Width 14.6 % (11.5-14.5) Platelet Count 258 x10^3/uL (140-400) Neutrophils (%) (Auto) 73 % (31-73) Lymphocytes (%) (Auto) 12 % (24-48) Monocytes (%) (Auto) 13 % (0-9) Eosinophils (%) (Auto) 2 % (0-3) Basophils (%) (Auto) 1 % (0-3) Neutrophils # (Auto) 4.5 x10^3/uL (1.8-7.7) Lymphocytes # (Auto) 0.7 x10^3/uL (1.0-4.8) Monocytes # (Auto) 0.8 x10^3/uL (0.0-1.1) Eosinophils # (Auto) 0.1 x10^3/uL (0.0-0.7) Basophils # (Auto) 0.0 x10^3/uL (0.0-0.2) Sodium Level 137 mmol/L (136-145) Potassium Level 3.6 mmol/L (3.5-5.1) Chloride Level 102 mmol/L (98-107) Carbon Dioxide Level 27 mmol/L (21-32) Anion Gap 8 (6-14) Blood Urea Nitrogen 10 mg/dL (8-26) Creatinine 1.0 mg/dL (0.7-1.3) Estimated GFR (Cockcroft-Gault) 87.2 BUN/Creatinine Ratio 10 (6-20) Glucose Level 81 mg/dL (70-99) Calcium Level 8.8 mg/dL (8.5-10.1) Total Bilirubin 0.7 mg/dL (0.2-1.0) Aspartate Amino Transf (AST/SGOT) 65 U/L (15-37) Alanine Aminotransferase (ALT/SGPT) 30 U/L (16-63) Alkaline Phosphatase 97 U/L (46-116) Total Protein 7.5 g/dL (6.4-8.2) Albumin 2.5 g/dL (3.4-5.0) Albumin/Globulin Ratio 0.5 (1.0-1.7) Assessment and Plan Assessmemt and Plan Problems Medical Problems: (1) Fall Status: Acute (2) Hypokalemia Status: Acute (3) Weakness Status: Acute Comment Review of Relevant I have reviewed the following items yessenia (where applicable) has been applied. Medications: Current Medications Medications (Trade) Dose Ordered Sig/Mono Route PRN Reason Start Time Stop Time Status Last Admin Dose Admin Potassium Chloride (Klor-Con) 40 meq 1X ONCE PO 03/24/20 14:45 03/24/20 14:49 DC 03/24/20 16:06 Acetaminophen/ Hydrocodone Bitart (Lortab 5/325) 1 tab PRN Q4HRS PRN PO MILD PAIN 1-3 03/24/20 19:15 03/25/20 10:36 Docusate Sodium (Colace) 100 mg BID PO 03/24/20 21:00 03/25/20 10:35 Heparin Sodium (Porcine) (Heparin Sodium) 5,000 unit Q12HR SQ 03/24/20 21:00 03/25/20 10:36 Potassium Chloride (Klor-Con) 40 meq 1X ONCE PO 03/24/20 19:45 03/24/20 19:46 DC 03/24/20 22:54 Amlodipine Besylate (Norvasc) 10 mg DAILY PO 03/25/20 09:00 03/25/20 09:00 Clonidine HCl (Catapres) 0.2 mg QHS PO 03/25/20 00:00 03/24/20 23:54 Cyclobenzaprine HCl (Flexeril) 10 mg PRN TID PRN PO MUSCLE PAIN 03/24/20 23:45 03/24/20 23:54 Furosemide (Lasix) 40 mg DAILY PO 03/25/20 09:00 03/25/20 10:35 Potassium Chloride (Klor-Con) 20 meq DAILY PO 03/25/20 09:00 03/25/20 10:36 Trimethoprim/ Sulfamethoxazole (Bactrim Ds) 1 tab BID PO 03/25/20 09:00 03/29/20 21:01 03/25/20 09:00 Justifications for Admission Other Justification TONNY PILLAI MD Mar 25, 2020 14:41
[2020-03-25 15:59] VITALS: BP 137/92
[2020-03-25 19:00] VITALS: BP 165/94
--- NOTE | 2020-03-25 19:13 | CONS ---
DATE OF CONSULTATION: 03/25/2020 REFERRING PHYSICIAN: Dr. Aguilar. REASON FOR CONSULTATION: Neck pain with severe left-sided weakness and a fall. HISTORY OF PRESENT ILLNESS: The patient is a very pleasant 79-year-old man who lives with his grandson. He was at the kitchen sink when his left leg gave out and he fell to the ground. He had been experiencing severe neck pain for about a week. He woke up one morning and the neck was quite painful. He went to an Emergency Room with [facility] where they prescribed a muscle relaxant and pain medicine, but this was not helpful. He had a similar symptom about a year ago and it did resolve with this treatment. He underwent a CT scan of the cervical spine in the Emergency Room, which failed to reveal any fracture. He has very limited movement of his neck at this point without severe pain. The pain radiates into the left shoulder and arm. He has had weakness on the left side associated. It has not affected his right side. He normally uses a walker to get around at home. He normally does not fall. He was diagnosed at [facility] Emergency Room with a urinary tract infection and was placed on oral antibiotics. PAST MEDICAL HISTORY: 1. Hypertension. 2. Urinary retention. 3. Prostate and bladder cancer. 4. Right eye cataract surgery. 5. Generalized weakness. ALLERGIES: No known allergies to drugs. MEDICATIONS PRIOR TO ADMISSION: Acetaminophen, codeine phosphate 2 tablets every 6 hours as needed, amlodipine 10 mg, clonidine 0.2 mg at night, cyclobenzaprine 10 mg as needed, furosemide 40 mg, potassium chloride 20 mEq extended release and TMP/sulfa one tablet twice a day for 5 days. FAMILY HISTORY: Noncontributory. SOCIAL HISTORY: He is a lifelong nonsmoker. He does not drink alcohol or use recreational drugs. He is retired from [employer]. 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 REVIEW OF SYSTEMS: He has not had headache. He has had severe neck pain. There has been no change of vision or hearing. He has been able to chew and swallow. He has not had shortness of breath, cough or cold. He does not have chest pain. He does have left shoulder pain. He has severe left knee pain. He has not had fever or rash. He has not had a bowel movement for 3 days. He does not have genitourinary complaints. He does not have psychiatric complaints. He often has swelling of his calves and feet. It is usually better in the morning. He does not complain of excessive bruising, bleeding or swelling. PHYSICAL EXAMINATION: VITAL SIGNS: The blood pressure was 137/92, pulse 69, respirations 20, temperature 98.6 degrees Celsius. Oximetry was 95% on room air. His weight was 110.9 kilograms, height 72 inches with a calculated body mass index 33.2. GENERAL: He was alert, awake and cooperative. Speech was fluent and clear. He had a good fund of recent and remote knowledge. Attention and concentration was intact. He appeared well groomed and well nourished. He was fully oriented. NEUROLOGIC: Examination of the cranial nerves revealed visual ruano were full to confrontation. Extraocular movements were intact. The eyes are conjugate. Pursuit movements were smooth and saccadic eye movements were without dysmetria. There was no nystagmus. Pupils were 3 mm. Facial sensation was intact bilaterally. The muscles of mastication and facial expression were symmetric. Hearing was intact to finger rub. The palate arched symmetrically and the tongue was midline with full range of motion. Sternocleidomastoid and trapezius were powerful. Neck was extremely painful with any rotation or flexion or extension. Muscle bulk was symmetric. I did not detect spasticity or rigidity. He did resist movement of the left shoulder because of pain. He resisted movement of the left leg because of knee pain. Power was full on the right side in the upper and lower extremities. Power in the left hand was weakened with finger abduction, wrist extension, elbow flexion and extension as well as arm abduction. Left leg was weak with hip flexion, knee flexion as well as dorsiflexion. Reflexes were 1/4 in the upper extremities, absent at knees and ankles. The toes were not upgoing. Coordination testing with [id number], fine motor and rapid movements was only fair. He did not do as well with the left arm because of the pain in the shoulder. He could not do coordination testing in the left leg due to pain and limited mobility. Sensory exam was intact in the upper extremities to pain, light touch, proprioception, graphesthesia to the #1, cold thermal and vibration. There was no extinction to double simultaneous stimulation. In the lower extremities, he had some distal sensory shading to pain, cold thermal and vibration. The sensory level seem slightly higher in the left leg than the right. Gait was not testable. NECK: Auscultation of the carotid arteries did not reveal a bruit. HEART: Rhythm is regular, without a murmur. EXTREMITIES: Peripheral pulses were symmetric. There was no cyanosis. There was edema of the calves and the feet. LABORATORY RESULTS: CBC was performed 03/25/2020 revealing a normal white blood cell count and platelet count. Hemoglobin was diminished at 12.7 and hematocrit at 37.8. Chemistries were performed on 03/25/2020. Electrolytes were normal. BUN and creatinine were normal. GFR calculated at 87.2. Glucose was normal. Calcium was normal. Total bilirubin was normal. SGOT was elevated at 65. Troponin was measured on 3 occasions and was not elevated. Total protein was normal, but albumin was low at 2.5. TSH was normal. Coagulation from 03/25/2020 revealed a PT/INR 1.2 and PTT of 33. Urinalysis was performed 03/24/2020 revealing 1-4 white cells and moderate squamous epithelial cells. Nitrite and leukocyte esterase were negative. A shoulder x-ray on the left was performed 03/24/2020 revealing no evidence for any acute fracture. CT scan of the head and cervical spine was performed 03/24/2020. There was no acute intracranial process. There was no acute cervical spine fracture. Chest x-ray was performed 03/24/2020 revealing no acute cardiopulmonary process. IMPRESSION: The patient is a very pleasant 79-year-old man who developed neck pain one week ago. He has weakness as well as pain in the left arm and left leg. I am concerned he could have a cervical myelopathy, although I would anticipate some crossed sensory findings as well as spasticity, which I am not seeing. I also do not see upgoing toes or pathologic reflexes. I am concerned there could also be a stroke in the right hemisphere contributing to the left-sided weakness. RECOMMENDATIONS: I would like to proceed with an MRI of the brain and cervical spine without contrast to evaluate for evidence of stroke or cervical myelopathy. I appreciate being involved in his care and will be happy to reevaluate. REYNA BERNARDO MD DR: ABELINO/todd JOB#: [id number] / [id number] DHARA Chavez MD
[2020-03-25] MEDS: cloNIDine HCL 0.2 MG TABLET PO SCH (21:14)
[2020-03-25] MEDS: CYCLOBENZAPRINE 10 MG TABLET. PO PRN (21:15)
[2020-03-25 23:00] VITALS: BP 143/80
[2020-03-26 03:00] VITALS: BP 164/69
[2020-03-26 07:59] VITALS: BP 136/79
[2020-03-26] MEDS: HYDROcodone/APAP 5/325MG 1 TAB TABLET PO PRN ×2 (09:15→20:15)
[2020-03-26] MEDS: amLODIPine BESYLATE 10 MG TABLET PO SCH (09:16)
[2020-03-26] MEDS: POTASSIUM CHLORIDE 20 MEQ TABLET.ER. PO SCH (09:16)
[2020-03-26] MEDS: DOCUSATE SODIUM 100 MG CAPSULE. PO SCH ×2 (09:16→22:40)
[2020-03-26] MEDS: FUROSEMIDE 40 MG TABLET. PO SCH (09:16)
[2020-03-26] MEDS: HEPARIN for SUB-Q USE 5,000 UNIT/ML VIAL. SQ SCH ×2 (09:21→22:44)
[2020-03-26] MEDS: SMZ/TMP 800/160MG TABLET. PO SCH ×2 (09:26→21:00)
[2020-03-26 11:59] VITALS: BP 128/76
[2020-03-26 15:59] VITALS: BP 138/92
--- NOTE | 2020-03-26 18:26 | PDOC ---
[facility] PROGRESS NOTE Date of Service DOS: DATE: 03/26/20 TIME: 18:25 Chief Complaint Chief Complaint Cervical spinal stenosis Hypokalemia Weakness Malnutrition Pending MRI of brain and cervical spine Appreciate neurology recommendations Continue serial neuro checks Pending neurosurgery evaluation Pain control PT OT Heparin for DVT prophylaxis Not indicated GI prophylaxis ADA diet Full code Discussed with RN and SW Disposition pending neuro and neurosurgery evaluation Surrogate decision maker is the patient at this time History of Present Illness History of Present Illness 70 yo male with PMHx of prostate cancer, who presents with complaint of worsening weakness for the past week. States his weakness is mostly in his legs, with associated throbbing neck pain, 8/10, and left hand numbness. His symptoms started one week ago with a "crook" in his neck. He was seen at [facility] and prescribed a muscle relaxer and pain medication without improvement. His symptoms progressed to the point of suffering a fall at home, which prompted his ED visit. He denies any prior injury to his neck.Denies any fever or unintentional weight-loss. 03/25/2020 No acute events overnight. Patient continues to have neck pain and associated left upper extremity weakness and bilateral lower extremity weakness. No bladder or bowel incontinence. Patient's chart, labs, images were reviewed and discussed with RN 03/26/2020 No acute events overnight. Patient seen and examined bedside. No acute changes in his neuro exam. Patient's chart, labs, images were reviewed and discussed with RN Vitals/I&O Vitals/I&O: Vital Signs Date Time Temp Pulse Resp B/P (MAP) Pulse Ox O2 Delivery O2 Flow Rate FiO2 03/26/20 15:59 97.9 93 20 138/92 (107) 98 Room Air 97.9 I & O 03/25/20 03/25/20 03/26/20 15:00 23:00 07:00 Intake Total 120 ml 120 ml Output Total 150 ml Balance -150 ml 120 ml 120 ml Physical Exam Physical Exam: General: Alert, Oriented X3, Cooperative, No acute distress HEENT: PERRLA Lungs: Clear to auscultation, Normal air movement Heart: RRR, no murmurs Cardiovascular: S1, S2 Abdomen: Normal bowel sounds, No tenderness Extremities: 2+ pitting edema bilateral legs Skin: No rashes, No breakdown Neuro: Strength 2/5 LUE, 5/5 in RUE. Bilateral LE weakness Psych/Mental Status: Mental status NL, Mood NL General: Alert, Oriented X3, Cooperative, No acute distress Abdomen: Normal bowel sounds, No tenderness Extremities: No clubbing, No cyanosis, Other (2+ pitting edema bilateral legs) Skin: No rashes, No breakdown Assessment and Plan Assessmemt and Plan Problems Medical Problems: (1) Fall Status: Acute (2) Hypokalemia Status: Acute (3) Weakness Status: Acute Comment Review of Relevant I have reviewed the following items yessenia (where applicable) has been applied. Justifications for Admission Other Justification TONNY PILLAI MD Mar 26, 2020 18:26
[2020-03-26 19:00] VITALS: BP 158/89
--- NOTE | 2020-03-26 19:32 | PDOC ---
PROGRESS NOTES Assessment Problems Medical Problems: (1) Fall Status: Acute (2) Hypokalemia Status: Acute (3) Weakness Status: Acute 4. Bilateral leg weakness as well as left-sided weakness of unclear etiology. Unfortunately, the MRI of the brain and cervical spine was not performed today for unclear reasons. This will hopefully be performed tomorrow morning. Patient does not note any change in his symptoms. He continues to have pain with movement of his left leg. He is not able to raise either leg very well off the bed. He continues to have weakness of the left arm. There was no evidence for chronic stroke on the CT scan of the head performed on March 24, 2020. There was no acute process of the CT scan of the cervical spine. Plan 1. I await the result of the MRI brain and cervical spine. If this is not revealing we will need to look into other causes of weakness. We will need to look into autoimmune diseases as well as inflammation. Subjective I am about the same. I am not any better or worse. My left leg still hurts in the back of the thigh. Objective Vital Signs Date Time Temp Pulse Resp B/P (MAP) Pulse Ox O2 Delivery O2 Flow Rate FiO2 03/26/20 15:59 97.9 93 20 138/92 (107) 98 Room Air 97.9 Intake and Output 03/26/20 07:00 Intake Total 240 ml Output Total 150 ml Balance 90 ml Intake Oral 240 ml Output Urine Total 150 ml # Voids 4 # Bowel Movements 1 PHYSICAL EXAM He was alert, awake and cooperative. Speech was fluent and clear. He was able to cooperate and follow commands. The eyes were conjugate and face symmetric. He was able to hold both arms up but there was left arm drift. He could not raise either leg off the bed. Tone appeared normal in the arms. There was weakness with finger flexion and abduction on the left. Elbow flexion and extension was also weaker on the left compared to the right. Attempts at moving his legs provoke pain. It was difficult to test tone because movement was so limited due to pain. Toes are not upgoing. Review of Relevant I have reviewed the following items yessenia (where applicable) has been applied. Labs Laboratory Tests Test 03/25/20 06:25 White Blood Count 6.2 x10^3/uL (4.0-11.0) Red Blood Count 4.37 x10^6/uL (4.30-5.70) Hemoglobin 12.7 g/dL (13.0-17.5) Hematocrit 37.8 % (39.0-53.0) Mean Corpuscular Volume 87 fL (79-100) Mean Corpuscular Hemoglobin 29 pg (25-35) Mean Corpuscular Hemoglobin Concent 34 g/dL (31-37) Red Cell Distribution Width 14.6 % (11.5-14.5) Platelet Count 258 x10^3/uL (140-400) Neutrophils (%) (Auto) 73 % (31-73) Lymphocytes (%) (Auto) 12 % (24-48) Monocytes (%) (Auto) 13 % (0-9) Eosinophils (%) (Auto) 2 % (0-3) Basophils (%) (Auto) 1 % (0-3) Neutrophils # (Auto) 4.5 x10^3/uL (1.8-7.7) Lymphocytes # (Auto) 0.7 x10^3/uL (1.0-4.8) Monocytes # (Auto) 0.8 x10^3/uL (0.0-1.1) Eosinophils # (Auto) 0.1 x10^3/uL (0.0-0.7) Basophils # (Auto) 0.0 x10^3/uL (0.0-0.2) Sodium Level 137 mmol/L (136-145) Potassium Level 3.6 mmol/L (3.5-5.1) Chloride Level 102 mmol/L (98-107) Carbon Dioxide Level 27 mmol/L (21-32) Anion Gap 8 (6-14) Blood Urea Nitrogen 10 mg/dL (8-26) Creatinine 1.0 mg/dL (0.7-1.3) Estimated GFR (Cockcroft-Gault) 87.2 BUN/Creatinine Ratio 10 (6-20) Glucose Level 81 mg/dL (70-99) Calcium Level 8.8 mg/dL (8.5-10.1) Total Bilirubin 0.7 mg/dL (0.2-1.0) Aspartate Amino Transf (AST/SGOT) 65 U/L (15-37) Alanine Aminotransferase (ALT/SGPT) 30 U/L (16-63) Alkaline Phosphatase 97 U/L (46-116) Total Protein 7.5 g/dL (6.4-8.2) Albumin 2.5 g/dL (3.4-5.0) Albumin/Globulin Ratio 0.5 (1.0-1.7) Microbiology 03/24/20 Blood Culture - Preliminary, Resulted NO GROWTH AFTER 2 DAYS Medications Current Medications Ondansetron HCl (Zofran) 4 mg PRN Q8HRS PRN IV NAUSEA/VOMITING; Start 03/24/20 at 14:45; Stop 03/25/20 at 14:44; Status DC Acetaminophen (Tylenol) 650 mg PRN Q4HRS PRN PO FEVER > 100.3'F; Start 03/24/20 at 14:45; Stop 03/25/20 at 14:44; Status DC Potassium Chloride (Klor-Con) 40 meq 1X ONCE PO Last administered on 03/24/20at 16:06; Start 03/24/20 at 14:45; Stop 03/24/20 at 14:49; Status DC Potassium Chloride (Klor-Con) 40 meq 1X PRN PRN PO SEE COMMENTS; Start 03/24/20 at 19:15 Potassium Bicarbonate (Potassium Effervescent Tablet) 40 meq 1X PRN PRN FT SEE COMMENTS; Start 03/24/20 at 19:15 Acetaminophen/ Hydrocodone Bitart (Lortab 5/325) 1 tab PRN Q4HRS PRN PO MILD PAIN 1-3 Last administered on 03/26/20at 09:15; Start 03/24/20 at 19:15 Docusate Sodium (Colace) 100 mg BID PO Last administered on 03/26/20at 09:16; Start 03/24/20 at 21:00 Heparin Sodium (Porcine) (Heparin Sodium) 5,000 unit Q12HR SQ Last administered on 03/26/20at 09:21; Start 03/24/20 at 21:00 Potassium Chloride (Klor-Con) 40 meq 1X ONCE PO Last administered on 03/24/20at 22:54; Start 03/24/20 at 19:45; Stop 03/24/20 at 19:46; Status DC Acetaminophen/ Codeine Phosphate (Tylenol #3) 2 tab PRN Q6HRS PRN PO MODERATE PAIN 4-6; Start 03/24/20 at 23:45 Amlodipine Besylate (Norvasc) 10 mg DAILY PO Last administered on 03/26/20 09:16; Start 03/25/20 at 09:00 Clonidine HCl (Catapres) 0.2 mg QHS PO Last administered on 03/25/20at 21:14; Start 03/25/20 at 00:00 Cyclobenzaprine HCl (Flexeril) 10 mg PRN TID PRN PO MUSCLE PAIN Last administered on 03/25/20 21:15; Start 03/24/20 at 23:45 Furosemide (Lasix) 40 mg DAILY PO Last administered on 03/26/20 09:16; Start 03/25/20 at 09:00 Potassium Chloride (Klor-Con) 20 meq DAILY PO Last administered on 03/26/20 09:16; Start 03/25/20 at 09:00 Trimethoprim/ Sulfamethoxazole (Bactrim Ds) 1 tab BID PO Last administered on 03/26/20 09:26; Start 03/25/20 at 09:00; Stop 03/29/20 at 21:01 Lactobacillus Rhamnosus (Culturelle) 1 cap BID PO ; Start 03/26/20 at 21:00; Status Cancel Active Scripts Active Reported Bactrim Ds Tablet (Sulfamethoxazole/Trimethoprim) 1 Each Tablet 1 Each PO BID 5 Days Acetaminophen-Cod #3 Tablet (Acetaminophen/Codeine Phosphate) 1 Each Tablet 2 Tab PO PRN Q6HRS PRN Cyclobenzaprine Hcl 10 Mg Tablet 10 Mg PO PRN TID PRN Klor-Con M20 (Potassium Chloride) 20 Meq Tab.er.prt 20 Meq PO DAILY Lasix (Furosemide) 40 Mg Tablet 40 Mg PO DAILY Amlodipine Besylate 10 Mg Tablet 10 Mg PO DAILY Clonidine Hcl 0.2 Mg Tablet 1 Tab PO QHS Vitals/I & O Vital Sign - Last 24 Hours 03/25/20 03/25/20 03/25/20 03/25/20 20:05 21:14 21:15 22:30 Pulse 103 Resp 18 18 B/P (MAP) 165/94 Pulse Ox 95 95 O2 Delivery Room Air Room Air Room Air 03/25/20 03/26/20 03/26/20 03/26/20 23:00 03:00 07:59 08:00 Temp 98.6 97.8 99.0 98.6 97.8 99.0 Pulse 101 93 91 Resp 18 18 20 B/P (MAP) 143/80 (101) 164/69 (100) 136/79 (98) Pulse Ox 92 95 95 O2 Delivery Room Air Room Air 03/26/20 03/26/20 03/26/20 03/26/20 09:15 09:16 11:59 15:59 Temp 98.9 97.9 98.9 97.9 Pulse 91 89 93 Resp 20 20 B/P (MAP) 136/79 128/76 (93) 138/92 (107) Pulse Ox 98 98 O2 Delivery Room Air Room Air Room Air Intake and Output 03/25/20 03/25/20 03/26/20 15:00 23:00 07:00 Intake Total 120 ml 120 ml Output Total 150 ml Balance -150 ml 120 ml 120 ml Justicifation of Admission Dx: Justifications for Admission: Justification of Admission Dx: Yes REYNA BERNARDO MD Mar 26, 2020 19:32
[2020-03-26] MEDS ORDERED: LACTOBACILLUS RHAMNOSUS GG 1 CAPSULE. PO SCH (21:00)
[2020-03-26] MEDS: cloNIDine HCL 0.2 MG TABLET PO SCH (22:40)
[2020-03-26 23:00] VITALS: BP 151/80
[2020-03-27 03:00] VITALS: BP 146/78
[2020-03-27 07:45] VITALS: BP 132/78
--- NOTE | 2020-03-27 09:13 | PDOC ---
[facility] [facility] PROGRESS NOTE Date of Service DOS: DATE: 03/27/20 TIME: 09:12 Chief Complaint Chief Complaint Cervical spinal stenosis Unable to walk Bilateral leg weakness, arm weakness of unclear etiology. L>R History of prostate and bladder cancer Chronic Neck pain Hypokalemia Severe protein calorie malnutrition Plan: Pending MRI of brain and cervical spine Appreciate neurology recommendations Continue serial neuro checks Pending neurosurgery evaluation Pain control PT OT Heparin for DVT prophylaxis Not indicated GI prophylaxis ADA diet Full code Discussed with RN and SW Disposition pending neuro and neurosurgery evaluation Surrogate decision maker is the patient at this time History of Present Illness History of Present Illness Mr Smith is a 79 yo male with PMHx of prostate cancer, who presents with complaint of worsening weakness for the past week prior to admission. States his weakness is mostly in his legs, with associated throbbing neck pain, 8/10, and left hand numbness. His symptoms started one week ago with a "crook" in his neck. He was seen at [facility] and prescribed a muscle relaxer and pain medication without improvement. His symptoms progressed to the point of suffering a fall at home, which prompted his ED visit. He denies any prior injury to his neck.Denies any fever or unintentional weight-loss. 03/25: Patient continues to have neck pain and associated left upper extremity weakness and bilateral lower extremity weakness. No bladder or bowel incontinence. 03/26: No acute changes in his neuro exam. Patient's chart, labs, images were reviewed and discussed with RN. Neurology consulted. MRI ordered. Afebrile. He is unable to lift his left leg against gravity today his left arm is weak as well. States his left sided neck pain is improved today. Vitals/I&O Vitals/I&O: Vital Signs Date Time Temp Pulse Resp B/P (MAP) Pulse Ox O2 Delivery O2 Flow Rate FiO2 03/27/20 07:45 98.1 89 20 132/78 (96) 95 Room Air 98.1 I & O 03/26/20 03/26/20 03/27/20 15:00 23:00 07:00 Intake Total 220 ml Balance 220 ml Physical Exam Physical Exam: General: Alert, Oriented X3, Cooperative, No acute distress HEENT: PERRLA Lungs: Clear to auscultation, Normal air movement Heart: RRR, no murmurs Cardiovascular: S1, S2 Abdomen: Normal bowel sounds, No tenderness Extremities: 2+ pitting edema bilateral legs Skin: No rashes, No breakdown Neuro: Strength 2/5 LUE, 5/5 in RUE. Bilateral LE weakness Psych/Mental Status: Mental status NL, Mood NL General: Alert, Oriented X3, Cooperative, No acute distress Abdomen: Normal bowel sounds, No tenderness Extremities: No clubbing, No cyanosis, Other (2+ pitting edema bilateral legs) Skin: No rashes, No breakdown Assessment and Plan Assessmemt and Plan Problems Medical Problems: (1) Fall Status: Acute (2) Hypokalemia Status: Acute (3) Weakness Status: Acute Comment Review of Relevant I have reviewed the following items yessenia (where applicable) has been applied. Justifications for Admission Other Justification MINDY LOZA MD Mar 27, 2020 09:13
[2020-03-27] MEDS: amLODIPine BESYLATE 10 MG TABLET PO SCH (10:31)
[2020-03-27] MEDS: POTASSIUM CHLORIDE 20 MEQ TABLET.ER. PO SCH (10:31)
[2020-03-27] MEDS: DOCUSATE SODIUM 100 MG CAPSULE. PO SCH ×2 (10:31→22:01)
[2020-03-27] MEDS: SMZ/TMP 800/160MG TABLET. PO SCH ×2 (10:31→22:01)
[2020-03-27] MEDS: FUROSEMIDE 40 MG TABLET. PO SCH (10:32)
[2020-03-27] MEDS: HEPARIN for SUB-Q USE 5,000 UNIT/ML VIAL. SQ SCH ×2 (10:37→22:05)
--- NOTE | 2020-03-27 11:11 | PDOC ---
PROGRESS NOTES Date of Service DATE: 03/27/20 TIME: 11:05 Assessment Problems Medical Problems: (1) Fall Status: Acute (2) Hypokalemia Status: Acute (3) Weakness Status: Acute Bilateral leg weakness, arm weakness of unclear etiology. Consider peripheral neuropathy. Keep in mind possibility of neuromuscular junction disease. Note that at baseline he gets around with a walker History of prostate and bladder cancer Neck pain Plan Await the result of the MRI brain and cervical spine. Additional laboratory studies ordered He may need myasthenia serology testing Rehabilitation modalities DVT prophylaxis Subjective He denies pain Objective Vital Signs Date Time Temp Pulse Resp B/P (MAP) Pulse Ox O2 Delivery O2 Flow Rate FiO2 03/27/20 10:31 89 132/78 03/27/20 07:45 98.1 20 95 Room Air 98.1 Intake and Output 03/27/20 07:00 Intake Total 220 ml Balance 220 ml Intake Oral 220 ml # Voids 4 PHYSICAL EXAM Alert. Oriented to time, place and person. PERRL. EOMI. CN: no focal findings. Muscle tone: normal. Muscle strength: 3/5 arms, 2/5 legs DTR: 0-1+ Plantar reflex: flexor Gait: not examined in bed. Sensory exam: stocking loss. No cerebellar signs elicited. Review of Relevant I have reviewed the following items yessenia (where applicable) has been applied. Labs Microbiology 03/24/20 Blood Culture - Preliminary, Resulted NO GROWTH AFTER 2 DAYS Medications Current Medications Ondansetron HCl (Zofran) 4 mg PRN Q8HRS PRN IV NAUSEA/VOMITING; Start 03/24/20 at 14:45; Stop 03/25/20 at 14:44; Status DC Acetaminophen (Tylenol) 650 mg PRN Q4HRS PRN PO FEVER > 100.3'F; Start 03/24/20 at 14:45; Stop 03/25/20 at 14:44; Status DC Potassium Chloride (Klor-Con) 40 meq 1X ONCE PO Last administered on 03/24/20at 16:06; Start 03/24/20 at 14:45; Stop 03/24/20 at 14:49; Status DC Potassium Chloride (Klor-Con) 40 meq 1X PRN PRN PO SEE COMMENTS; Start 03/24/20 at 19:15 Potassium Bicarbonate (Potassium Effervescent Tablet) 40 meq 1X PRN PRN FT SEE COMMENTS; Start 03/24/20 at 19:15 Acetaminophen/ Hydrocodone Bitart (Lortab 5/325) 1 tab PRN Q4HRS PRN PO MILD PAIN 1-3 Last administered on 03/26/20 20:15; Start 03/24/20 at 19:15 Docusate Sodium (Colace) 100 mg BID PO Last administered on 03/27/20 10:31; Start 03/24/20 at 21:00 Heparin Sodium (Porcine) (Heparin Sodium) 5,000 unit Q12HR SQ Last administered on 03/27/20at 10:37; Start 03/24/20 at 21:00 Potassium Chloride (Klor-Con) 40 meq 1X ONCE PO Last administered on 03/24/20at 22:54; Start 03/24/20 at 19:45; Stop 03/24/20 at 19:46; Status DC Acetaminophen/ Codeine Phosphate (Tylenol #3) 2 tab PRN Q6HRS PRN PO MODERATE PAIN 4-6; Start 03/24/20 at 23:45 Amlodipine Besylate (Norvasc) 10 mg DAILY PO Last administered on 03/27/20 10:31; Start 03/25/20 at 09:00 Clonidine HCl (Catapres) 0.2 mg QHS PO Last administered on 03/26/20at 22:40; Start 03/25/20 at 00:00 Cyclobenzaprine HCl (Flexeril) 10 mg PRN TID PRN PO MUSCLE PAIN Last administered on 03/25/20at 21:15; Start 03/24/20 at 23:45 Furosemide (Lasix) 40 mg DAILY PO Last administered on 03/27/20 10:32; Start 03/25/20 at 09:00 Potassium Chloride (Klor-Con) 20 meq DAILY PO Last administered on 03/27/20 10:31; Start 03/25/20 at 09:00 Trimethoprim/ Sulfamethoxazole (Bactrim Ds) 1 tab BID PO Last administered on 03/27/20 10:31; Start 03/25/20 at 09:00; Stop 03/29/20 at 21:01 Lactobacillus Rhamnosus (Culturelle) 1 cap BID PO ; Start 03/26/20 at 21:00; Status Cancel Active Scripts Active Reported Bactrim Ds Tablet (Sulfamethoxazole/Trimethoprim) 1 Each Tablet 1 Each PO BID 5 Days Acetaminophen-Cod #3 Tablet (Acetaminophen/Codeine Phosphate) 1 Each Tablet 2 Tab PO PRN Q6HRS PRN Cyclobenzaprine Hcl 10 Mg Tablet 10 Mg PO PRN TID PRN Klor-Con M20 (Potassium Chloride) 20 Meq Tab.er.prt 20 Meq PO DAILY Lasix (Furosemide) 40 Mg Tablet 40 Mg PO DAILY Amlodipine Besylate 10 Mg Tablet 10 Mg PO DAILY Clonidine Hcl 0.2 Mg Tablet 1 Tab PO QHS Vitals/I & O Vital Sign - Last 24 Hours 03/26/20 03/26/20 03/26/20 03/26/20 11:59 15:59 19:00 20:15 Temp 98.9 97.9 99.9 98.9 97.9 99.9 Pulse 89 93 103 Resp 20 20 16 B/P (MAP) 128/76 (93) 138/92 (107) 158/89 (112) Pulse Ox 98 98 94 O2 Delivery Room Air Room Air Room Air 03/26/20 03/26/20 03/26/20 03/27/20 21:30 22:40 23:00 03:00 Temp 99.1 99.3 99.1 99.3 Pulse 93 94 88 Resp 16 18 B/P (MAP) 138/92 151/80 (103) 146/78 (100) Pulse Ox 97 94 O2 Delivery Room Air 03/27/20 03/27/20 07:45 10:31 Temp 98.1 98.1 Pulse 89 89 Resp 20 B/P (MAP) 132/78 (96) 132/78 Pulse Ox 95 O2 Delivery Room Air l Intake and Output 03/26/20 03/26/20 03/27/20 15:00 23:00 07:00 Intake Total 220 ml Balance 220 ml Justicifation of Admission Dx: Justifications for Admission: Justification of Admission Dx: Yes DHARA PERRY MD Mar 27, 2020 11:11
--- NOTE | 2020-03-27 11:20 | NUR ---
EMIR following. Spoke with RN and reviewed chart. Pt on room air and oral medications. PT/OT recommending acute rehab. Spoke with pt who stated he lives with his grandson. Pt stated his preference is to go to [facility] (been there in the past) instead of acute rehab. EMIR completed Patient Choice of Vendor form. EMIR phoned and faxed referral to Sabina at [facility]. EMIR following. Addendum: 03/27/20 at 1201 by SUSAN FIELD EMIR requested COVID test for SNU placement. Addendum: 03/27/20 at 1537 by SUSAN FIELD EMIR obtained discharge orders from Dr. Chavez. EMIR phoned and faxed orders to Madeline at [facility]. Packet of clinicals ready to be sent with pt. Madeline requested SW arrange transport. SW called [facility] and they will provide transport between 1600 and 1630. RN to call report. No further SW needs at this time. Addendum: 03/27/20 at 1729 by SUSAN FIELD Discharge cancelled per Dr. Hammond. SW to continue following.
[2020-03-27 11:33] VITALS: BP 168/85
--- NOTE | 2020-03-27 14:34 | RAD ---
MRI Brain without contrast History:Stroke, recent history of weakness Technique: Multiplanar, multisequential noncontrast MR imaging was performed of the brain. Comparison: March 24, [address], no previous MRI brain available Findings: There is some motion degradation. Allowing for motion, there is no convincing evidence of recent infarct. The ventricles, sulci, and cisterns are within normal limits in size and configuration. There is no significant midline shift, intraaxial mass effect, or focal abnormal extra-axial fluid collection. There is scattered minimal T2 and FLAIR hyperintense signal of the supratentorial parenchyma bilaterally. There is preservation of the major intracranial flow-voids at the skull base. The cerebellar tonsils are normal in location. There is no significant abnormality of the pineal gland or pituitary gland. Paranasal sinuses are overall aerated. The mastoid air cells are aerated. There is preserved marrow signal of the clivus. There has been lens surgery on the right, somewhat disconjugate gaze. There is some signal change associated with the transverse ligament of C1, corresponds with some buckling and calcification on CT. Impression: 1. There is no convincing evidence of recent infarct. 2. Mild T2 and FLAIR hyperintense signal of the supratentorial parenchyma bilaterally is nonspecific, more commonly due to chronic microvascular ischemic disease in a patient this age. Electronically signed by: Jack Gil MD (03/27/2020 2:31 PM) [id number]
--- NOTE | 2020-03-27 14:52 | RAD ---
MRI Cervical Spine Without Contrast History:HNP, evaluate for myelopathy Technique: Multiplanar, multi sequential noncontrast MR imaging was performed of the cervical spine. Comparison: CT cervical spine March 24, 2020 Findings: There is some motion. Cervical vertebral body stature is overall maintained. There is multilevel fairly advanced degenerative disc disease greatest C5-6, C6-7, and C7-T1, to a lesser degree C3-4 and C4-5. Cervical cord caliber is within normal limits, no defined or expansile signal abnormality. There is some heterogeneous signal about the posterior dens, some calcification in this region on CT. There is some amorphous edema of the dens, more likely reactive/degenerative in etiology. C2-C3: There is severe left facet degenerative change contributing to mild to moderate posterior narrowing of the left neural foramen. Right neural foramen and spinal canal are adequate. C3-C4: There is very minimal disc osteophyte complex and bulge. Central canal is narrowed to about 8-9 mm. There is severe bilateral facet degenerative change. There is also bilateral uncovertebral degenerative change. There is severe right greater than left neural foramina compromise. C4-C5: There is very minimal disc osteophyte complex and bulge. Central canal is narrowed to about 8 to 9 mm. There is severe right facet degenerative change, to a somewhat lesser degree of the left. There is uncovertebral degenerative change greater on the right. There is severe right and at least moderate left neural foramina compromise. C5-C6: There is minimal disc osteophyte complex and bulge. Central canal is narrowed to about 8 mm as measured on sagittal images. There is severe right facet hypertrophic change, to a lesser degree on the left. There is right uncovertebral degenerative change. There is fairly severe narrowing of the right neural foramen, left neural foramen adequate. C6-C7: There is disc osteophyte complex, superimposed shallow protrusion with associated annular tear. There is indentation upon the ventral thecal sac, central canal narrowed to about 7 mm. There is bilateral facet hypertrophic change. There is minimal narrowing of the left neural foramen, right neural foramen adequate. C7-T1: Spinal canal and left neural foramen are adequate. There is facet hypertrophic change greater on the right, also mild right uncovertebral degenerative change resulting in likely mild narrowing the right neural foramen. Impression: 1. There is advanced degenerative disc disease greatest C5-6 and C7-T1 and to lesser degree at C3-4 and C4-5. There is multilevel spondylosis. 2. There is central canal stenosis about 7 mm at C6-7 and to a somewhat lesser degree C3-4 through C5-C6 as described. 3. Facet and uncovertebral degenerative change contributes to multilevel neural foramina compromise, more significant narrowing bilaterally at C3-4, on the right at C4-5 and C5-6, and to lesser degree on the left at C4-5. 4. There is some amorphous edema of the dens more likely reactive/degenerative in etiology, also some nonspecific signal change about the dorsal dens which may be component of pannus formation as could be seen with rheumatoid arthritis or crystalline disease. However there is no erosion of the dens. Electronically signed by: Jack Gil MD (03/27/2020 2:50 PM) [id number]
[2020-03-27 15:00] VITALS: BP 152/76
[2020-03-27] MEDS ORDERED: [UNRECOGNIZED DRUG - CODE] PO (15:22)
[2020-03-27] MEDS ORDERED: ACET1TAB33 PO (15:22)
--- NOTE | 2020-03-27 15:23 | SNU/HH DC ---
DISCHARGE ORDERS DISCHARGE INFORMATION: DISCHARGE DATE: Mar 30, 2020 FINAL DIAGNOSIS Problems Medical Problems: (1) Fall Status: Acute (2) Hypokalemia Status: Acute (3) Weakness Status: Acute CONDITION ON DISCHARGE: Stable CODE STATUS: Code Status: Full INTERMEDIATE: SNF STAY <30 DAYS: Yes POST DISCHARGE ORDERS: ACTIVITY ORDERS: Resume previous activity WEIGHT BEARING STATUS: Full weight bearing DIET AFTER DISCHARGE: Cardiac WOUND/INCISION CARE: Do not change dressing, Reinforce dressing PRN CHECKS AFTER DISCHARGE: CHECKS AFTER DISCHARGE: Check blood press - daily, Check your Temp as needed TREATMENT/EQUIPMENT ORDERS: Physical Therapy For: Evalulation/Treatment Occupational Therapy For: Evaluation/Treatment DISCHARGE MEDICATIONS: Home Meds Active Scripts Dexamethasone (Decadron) 4 Mg Tablet, 4 MG PO Q6HRS for Myelitis for 3 Days, #12 TAB Prov:MINDY LOZA MD 03/30/20 Psyllium Husk (with Dextrose) (Konsyl Formula-D Fiber Powder) 397 Gm Powder, 397 GM PO DAILY for constipation for 30 Days, #30 MISC Prov:MINDY LOZA MD 03/27/20 Acetaminophen With Codeine (ACETAMINOPHEN-COD #3 TABLET) 1 Each Tablet, 2 TAB PO PRN Q6HRS PRN for PAIN for 6 Days, #24 TAB Prov:MINDY LOZA MD 03/27/20 Reported Medications Cyclobenzaprine Hcl (CYCLOBENZAPRINE HCL) 10 Mg Tablet, 10 MG PO PRN TID PRN for MUSCLE PAIN, TAB 03/24/20 Potassium Chloride (KLOR-CON M20) 20 Meq Tab.er.prt, 20 MEQ PO DAILY for supplement, TAB.SR 03/24/20 Amlodipine Besylate (AMLODIPINE BESYLATE) 10 Mg Tablet, 10 MG PO DAILY for HTN 07/31/16 Clonidine Hcl (CLONIDINE HCL) 0.2 Mg Tablet, 1 TAB PO QHS for HTN 07/31/16 Discontinued Reported Medications Sulfamethoxazole/Trimethoprim (BACTRIM DS TABLET) 1 Each Tablet, 1 EACH PO BID for UTI for 5 Days, #10 TAB 03/24/20 Furosemide (LASIX) 40 Mg Tablet, 40 MG PO DAILY for diuretic, TAB 03/24/20 Hydrochlorothiazide (HYDROCHLOROTHIAZIDE TABLET) 12.5 Mg Tablet, 12.5 MG PO DAILY for Diuretic 03/05/18 MINDY LOZA MD Mar 27, 2020 15:23
--- NOTE | 2020-03-27 15:29 | PDOC3 ---
Discharge Summary Visit Information Date of Admission: Mar 24, 2020 Date of Discharge: Mar 31, 2020 Admitting Diagnosis: Fall Final Diagnosis Problems Medical Problems: (1) Fall Status: Acute (2) Hypokalemia Status: Acute (3) Weakness Status: Acute Brief Hospital Course Allergies Allergies Coded Allergies Type Severity Reaction Last Updated Verified No Known Drug Allergies 03/01/14 No Vital Signs Vital Signs Date Time Temp Pulse Resp B/P (MAP) Pulse Ox O2 Delivery O2 Flow Rate FiO2 03/27/20 11:33 98.6 92 20 168/85 (112) 97 Room Air 98.6 Brief Hospital Course Mr Smith is a 79 yo male with PMHx of prostate cancer, who presents with complaint of worsening weakness for the past week prior to admission. States his weakness is mostly in his legs, with associated throbbing neck pain, 8/10, and left hand numbness. His symptoms started one week ago with a "crook" in his neck. He was seen at [facility] and prescribed a muscle relaxer and pain medication without improvement. His symptoms progressed to the point of suffering a fall at home, which prompted his ED visit. He denies any prior injury to his neck.Denies any fever or unintentional weight-loss. 03/25: Patient continues to have neck pain and associated left upper extremity weakness and bilateral lower extremity weakness. No bladder or bowel incontinence. 03/26: No acute changes in his neuro exam. Patient's chart, labs, images were reviewed and discussed with RN. Neurology consulted. MRI ordered. 03/27: Cervical spine MRI: There is some motion. Cervical vertebral body stature is overall maintained. There is multilevel fairly advanced degenerative disc disease greatest C5-6, C6- 7, and C7-T1, to a lesser degree C3-4 and C4-5. Cervical cord caliber is within normal limits, no defined or expansile signal abnormality. There is some heterogeneous signal about the posterior dens, some calcification in this region on CT. There is some amorphous edema of the dens, more likely reactive/degenerative in etiology. C2-C3: There is severe left facet degenerative change contributing to mild to moderate posterior narrowing of the left neural foramen. Right neural foramen and spinal canal are adequate. C3-C4: There is very minimal disc osteophyte complex and bulge. Central canal is narrowed to about 8-9 mm. There is severe bilateral facet degenerative change. There is also bilateral uncovertebral degenerative change. There is severe right greater than left neural foramina compromise. C4-C5: There is very minimal disc osteophyte complex and bulge. Central canal is narrowed to about 8 to 9 mm. There is severe right facet degenerative change, to a somewhat lesser degree of the left. There is uncovertebral degenerative change greater on the right. There is severe right and at least moderate left neural foramina compromise. C5-C6: There is minimal disc osteophyte complex and bulge. Central canal is narrowed to about 8 mm as measured on sagittal images. There is severe right facet hypertrophic change, to a lesser degree on the left. There is right uncovertebral degenerative change. There is fairly severe narrowing of the right neural foramen, left neural foramen adequate. C6-C7: There is disc osteophyte complex, superimposed shallow protrusion with associated annular tear. There is indentation upon the ventral thecal sac, central canal narrowed to about 7 mm. There is bilateral facet hypertrophic change. There is minimal narrowing of the left neural foramen, right neural foramen adequate. C7-T1: Spinal canal and left neural foramen are adequate. There is facet hypertrophic change greater on the right, also mild right uncovertebral degenerative change resulting in likely mild narrowing the right neural foramen. Impression: 1. There is advanced degenerative disc disease greatest C5-6 and C7-T1 and to lesser degree at C3-4 and C4-5. There is multilevel spondylosis. 2. There is central canal stenosis about 7 mm at C6-7 and to a somewhat lesser degree C3-4 through C5-C6 as described. 3. Facet and uncovertebral degenerative change contributes to multilevel neural foramina compromise, more significant narrowing bilaterally at C3-4, on the right at C4-5 and C5-6, and to lesser degree on the left at C4-5. 4. There is some amorphous edema of the dens more likely reactive/degenerative in etiology, also some nonspecific signal change about the dorsal dens which may be component of pannus formation as could be seen with rheumatoid arthritis or crystalline disease. However there is no erosion of the dens. Brain MRI: There is some motion degradation. Allowing for motion, there is no convincing evidence of recent infarct. The ventricles, sulci, and cisterns are within normal limits in size and configuration. There is no significant midline shift, intraaxial mass effect, or focal abnormal extra-axial fluid collection. There is scattered minimal T2 and FLAIR hyperintense signal of the supratentorial parenchyma bilaterally. There is preservation of the major intracranial flow- voids at the skull base. The cerebellar tonsils are normal in location. There is no significant abnormality of the pineal gland or pituitary gland. Paranasal sinuses are overall aerated. The mastoid air cells are aerated. There is preserved marrow signal of the clivus. There has been lens surgery on the right, somewhat disconjugate gaze. There is some signal change associated with the transverse ligament of C1, corresponds with some buckling and calcification on CT. Impression: 1. There is no convincing evidence of recent infarct. 2. Mild T2 and FLAIR hyperintense signal of the supratentorial parenchyma bilaterally is nonspecific, more commonly due to chronic microvascular ischemic disease in a patient this age. 03/28: Still with left leg weakness, started on decadron. CRP 324. No SOB or CP. D/w daughter 03/29: To OR for anterior cervical microdiskectomy, C6-C7, anterior cervical interbody fusion, C6-C7; anterior cervical plate, C6-C7. With: EMG monitoring, SSEP monitoring, NIMS monitoring, motor evoked potentials, fluoroscopy, microscopic dissection. 03/30: Stronger today. S/p ACDF 03/29 in the afternoon. No CP or SOB. Afebrile, no overnight events. CRP trended down to 81.4. Plan for discharge to [facility] rehabilitation later today. Problem list: Cervical spinal stenosis Unable to walk Bilateral leg weakness, arm weakness of unclear etiology. L>R History of prostate and bladder cancer Chronic Neck pain Hypokalemia Severe protein calorie malnutrition Plan: Pain control PT OT ADA diet Full code D/w daughterBerkley, Acute rehab Decadron 3 days on d/c F/u neurosurgery Greater than 30 minutes spent on d/c Discharge Information Condition at Discharge: Stable Follow Up: Weeks Disposition/Orders: D/C to Another Facility (SNF) Scheduled Amlodipine Besylate (Amlodipine Besylate) 10 Mg Tablet, 10 MG PO DAILY for HTN, (Reported) Entered as Reported by: Kodak Patrick on 07/31/16 4734 Last Action: Continued on 03/24/20 2344 by ROSE MARY COLMENARES Clonidine Hcl (Clonidine Hcl) 0.2 Mg Tablet, 1 TAB PO QHS for HTN, (Reported) Entered as Reported by: Kodak Patrick on 07/31/16 985 Last Action: Continued on 03/24/202343 by ROSE MARY COLMENARES Dexamethasone (Decadron) 4 Mg Tablet, 4 MG PO Q6HRS for Myelitis for 3 Days, #12 Prescribed by: MINDY LOZA MD on 03/30/20 1220 Potassium Chloride (Klor-Con M20) 20 Meq Tab.er.prt, 20 MEQ PO DAILY for supplement, (Reported) Entered as Reported by: ROSE MARY COLMENARES on 03/24/202341 Last Action: Continued on 03/24/202343 by ROSE MARY COLMENARES Psyllium Husk (with Dextrose) (Konsyl Formula-D Fiber Powder) 397 Gm Powder, 397 GM PO DAILY for constipation for 30 Days, #30 Prescribed by: MINDY LOZA MD on 03/27/20 1522 Scheduled PRN Acetaminophen With Codeine (Acetaminophen-Cod #3 Tablet) 1 Each Tablet, 2 TAB PO PRN Q6HRS PRN for PAIN for 6 Days, #24 Prescribed by: MINDY LOZA MD on 03/27/20 1522 Cyclobenzaprine Hcl (Cyclobenzaprine Hcl) 10 Mg Tablet, 10 MG PO PRN TID PRN for MUSCLE PAIN, (Reported) Entered as Reported by: ROSE MARY COLMENARES on 03/24/202341 Last Action: Continued on 03/24/202343 by ROSE MARY COLMENARES Discontinued Medications Furosemide (Lasix) 40 Mg Tablet, 40 MG PO DAILY for diuretic, (Reported) Entered as Reported by: ROSE MARY COLMENARES on 03/24/202341 Last Action: Continued on 03/24/202343 by ROSE MARY COLMENARES Hydrochlorothiazide (Hydrochlorothiazide Tablet) 12.5 Mg Tablet, 12.5 MG PO DAILY for Diuretic, (Reported) Entered as Reported by: ENRICO WALDEN on 03/05/18 1243 Last Action: Discontinued on 03/24/202342 by ROSE MARY COLMENARES Sulfamethoxazole/Trimethoprim (Bactrim Ds Tablet) 1 Each Tablet, 1 EACH PO BID for UTI for 5 Days, #10 (Reported) Entered as Reported by: ROSE MARY COLMENARES on 03/24/202341 Last Action: Continued on 03/24/202343 by ROSE MARY COLMENARES Justicifation of Admission Dx: Justifications for Admission: Justification of Admission Dx: Yes MINDY LOZA MD Mar 27, 2020 15:29
[2020-03-27 15:47] LABS: CALCIUM 8.7 mg/dL (8.5-10.1); CREATININE 1.2 mg/dL (0.7-1.3); GFR 70.7; POTASSIUM 3.6 mmol/L (3.5-5.1)
[2020-03-27] MEDS: DEXAMETHASONE SOD PHOS 4 MG/ML VIAL IVP SCH ×2 (16:30→22:07)
[2020-03-27] MEDS ORDERED: DEXAMETHASONE SOD PHOS 20 MG/5 ML VIAL. IV SCH (16:30)
[2020-03-27 19:00] VITALS: BP 150/78
[2020-03-27] MEDS: cloNIDine HCL 0.2 MG TABLET PO SCH (22:01)
[2020-03-27] MEDS: HYDROcodone/APAP 5/325MG 1 TAB TABLET PO PRN (22:07)
[2020-03-27] MEDS: CYCLOBENZAPRINE 10 MG TABLET. PO PRN (22:07)
[2020-03-27 22:47] VITALS: BP 163/84
--- NOTE | 2020-03-28 00:51 | NUR ---
Pt. refused an IV twice tonight. Discussed the importance of an IV to give him Dexamethasone. He still refused.
[2020-03-28] MEDS: DEXAMETHASONE SOD PHOS 4 MG/ML VIAL IVP SCH ×2 (00:55→10:30)
[2020-03-28 03:00] VITALS: BP_SYST 123; BP_SYST 163; BP_DIAS 68; BP_DIAS 84
--- NOTE | 2020-03-28 07:01 | PDOC ---
[employer] PROGRESS NOTE Date of Service DOS: DATE: 03/28/20 TIME: 07:01 Chief Complaint Chief Complaint Cervical spinal stenosis Unable to walk Bilateral leg weakness, arm weakness of unclear etiology. L>R History of prostate and bladder cancer Chronic Neck pain Hypokalemia Severe protein calorie malnutrition Plan: Pending neurosurgery evaluation Pain control PT OT Heparin for DVT prophylaxis Not indicated GI prophylaxis ADA diet Full code Discussed with RN and SW Disposition pending neurosurgery evaluation Surrogate decision maker is the patient at this time D/w daughter, Berkley, History of Present Illness History of Present Illness Mr Smith is a 79 yo male with PMHx of prostate cancer, who presents with complaint of worsening weakness for the past week prior to admission. States his weakness is mostly in his legs, with associated throbbing neck pain, 8/10, and left hand numbness. His symptoms started one week ago with a "crook" in his neck. He was seen at [facility] and prescribed a muscle relaxer and pain med ication without improvement. His symptoms progressed to the point of suffering a fall at home, which prompted his ED visit. He denies any prior injury to his neck.Denies any fever or unintentional weight-loss. 03/25: Patient continues to have neck pain and associated left upper extremity weakness and bilateral lower extremity weakness. No bladder or bowel incontinence. 03/26: No acute changes in his neuro exam. Patient's chart, labs, images were reviewed and discussed with RN. Neurology consulted. MRI ordered. 03/27: Afebrile. He is unable to lift his left leg against gravity today his left arm is weak as well. Neck pain improved. MRI brain negative for CVA. MRI cervical spine There is central canal stenosis about 7 mm at C6-7. Still with left leg weakness, started on decadron. CRP 324. No SOB or CP. D/w daughter Vitals/I&O Vitals/I&O: Vital Signs Date Time Temp Pulse Resp B/P (MAP) Pulse Ox O2 Delivery O2 Flow Rate FiO2 03/28/20 03:00 98.5 79 21 123/68 (86) 95 Room Air 98.5 I & O 03/27/20 03/27/20 03/28/20 15:00 23:00 07:00 Intake Total 315 ml 100 ml 360 ml Output Total 0 ml Balance 315 ml 100 ml 360 ml Physical Exam Physical Exam: General: Alert, Oriented X3, Cooperative, No acute distress HEENT: PERRLA Lungs: Clear to auscultation, Normal air movement Heart: RRR, no murmurs Cardiovascular: S1, S2 Abdomen: Normal bowel sounds, No tenderness Extremities: 2+ pitting edema bilateral legs Skin: No rashes, No breakdown Neuro: Strength 2/5 LUE, 5/5 in RUE. Bilateral LE weakness Psych/Mental Status: Mental status NL, Mood NL General: Alert, Oriented X3, Cooperative, No acute distress Abdomen: Normal bowel sounds, No tenderness Extremities: No clubbing, No cyanosis, Other (2+ pitting edema bilateral legs) Skin: No rashes, No breakdown Labs Labs: Laboratory Tests Test 03/27/20 12:27 03/27/20 14:15 03/28/20 04:25 SARS-CoV-2 Antigen (Rapid) Negative (NEGATIVE) Sodium Level 138 mmol/L (136-145) Potassium Level 3.6 mmol/L (3.5-5.1) Chloride Level 100 mmol/L (98-107) Carbon Dioxide Level 30 mmol/L (21-32) Anion Gap 8 (6-14) Blood Urea Nitrogen 12 mg/dL (8-26) Creatinine 1.2 mg/dL (0.7-1.3) Estimated GFR (Cockcroft-Gault) 70.7 Glucose Level 105 mg/dL (70-99) Calcium Level 8.7 mg/dL (8.5-10.1) C-Reactive Protein, Quantitative 324.0 mg/L (0-3.3) Assessment and Plan Assessmemt and Plan Problems Medical Problems: (1) Fall Status: Acute (2) Hypokalemia Status: Acute (3) Weakness Status: Acute Comment Review of Relevant I have reviewed the following items yessenia (where applicable) has been applied. Justifications for Admission Other Justification MINDY LOZA MD Mar 28, 2020 07:01
[2020-03-28 07:36] VITALS: BP 133/75
[2020-03-28] MEDS: DOCUSATE SODIUM 100 MG CAPSULE. PO SCH ×2 (08:35→20:47)
[2020-03-28] MEDS: amLODIPine BESYLATE 10 MG TABLET PO SCH (08:35)
[2020-03-28] MEDS: FUROSEMIDE 40 MG TABLET. PO SCH (08:35)
[2020-03-28] MEDS: DEXAMETHASONE 4 MG TABLET PO SCH ×3 (08:35→17:34)
[2020-03-28] MEDS: POTASSIUM CHLORIDE 20 MEQ TABLET.ER. PO SCH (08:35)
--- NOTE | 2020-03-28 11:09 | NUR ---
EMIR following. Spoke with RN and reviewed chart. Pt's discharge to [facility] held yesterday per Dr. Hammond. Spoke with pt and apparently the dtr does not want pt at [facility]. Pt a/o and able to make his needs known. Pt stated for this SW to follow up with his dtr and he will go to whatever facility she says. EMIR spoke dtr Thereyna ([phone]) who stated she does want pt in acute rehab. SW provided contact information for acute rehab providers and dtr will call back to inform EMIR of where she wants referral sent. EMIR following. Addendum: 03/28/20 at 1219 by SUSAN FIELD Daughter called and would like referral sent to [facility] rehab. EMIR phoned and faxed referral to [facility] and completed a new patient choice of vendor form. Addendum: 03/28/20 at 1638 by SUSAN FIELD Pt accepted for transfer to [facility] acute rehab whenever pt is cleared by neurology. Dtr notified. SW to continue following.
[2020-03-28 11:21] VITALS: BP 149/79
--- NOTE | 2020-03-28 12:18 | PDOC ---
PROGRESS NOTES Date of Service DATE: 03/28/20 TIME: 12:13 Assessment Problems Medical Problems: (1) Fall Status: Acute (2) Hypokalemia Status: Acute (3) Weakness Status: Acute The story is that he was noticing some neck pain a couple weeks ago and then fell last week with immediate onset of the quadraparesis. MRI cervical spine shows advanced degenerative disc disease greatest C5-6 and C7-T1 and to lesser degree at C3-4 and C4-5, multilevel spondylosis, central canal stenosis about 7 mm at C6-7 and to a somewhat lesser degree C3-4 through C5-C6, facet and uncovertebral degenerative change with multilevel neural foramina compromise, and amorphous edema of the dens Doubt neuromuscular junction disease. He does have peripheral neuropathy. Note that at baseline he gets around with a walker History of prostate and bladder cancer Elevated CRP, awaiting rest of laboratory studies Plan Decadron for a few days Neurosurgical consultation, possible cervical decompression in the next week, I discussed with Dr. Zamudio last night Also discussed with Dr. Kirk yesterday and today Rehabilitation modalities DVT prophylaxis Discussed with patient's daughter Subjective He denies pain presently Objective Vital Signs Date Time Temp Pulse Resp B/P (MAP) Pulse Ox O2 Delivery O2 Flow Rate FiO2 03/28/20 11:21 98.6 73 18 149/79 (102) 98 Room Air 98.6 Intake and Output 03/28/20 07:00 Intake Total 775 ml Output Total 0 ml Balance 775 ml Intake Oral 775 ml Output Urine Total 0 ml # Voids 3 PHYSICAL EXAM Alert. Oriented to time, place and person. PERRL. EOMI. CN: no focal findings. Muscle tone: normal. Muscle strength: 3/5 arms right arm, 2/5 left arm, 2/5 legs DTR: 0-1+ Plantar reflex: flexor Gait: not examined in bed. Sensory exam: stocking loss. No cerebellar signs elicited. Review of Relevant I have reviewed the following items yessenia (where applicable) has been applied. Labs Laboratory Tests Test 03/27/20 12:27 03/27/20 14:15 03/28/20 04:25 SARS-CoV-2 Antigen (Rapid) Negative (NEGATIVE) Sodium Level 138 mmol/L (136-145) Potassium Level 3.6 mmol/L (3.5-5.1) Chloride Level 100 mmol/L (98-107) Carbon Dioxide Level 30 mmol/L (21-32) Anion Gap 8 (6-14) Blood Urea Nitrogen 12 mg/dL (8-26) Creatinine 1.2 mg/dL (0.7-1.3) Estimated GFR (Cockcroft-Gault) 70.7 Glucose Level 105 mg/dL (70-99) Calcium Level 8.7 mg/dL (8.5-10.1) C-Reactive Protein, Quantitative 324.0 mg/L (0-3.3) Vitamin B12 Level 387 pg/mL (247-911) Laboratory Tests Test 03/27/20 12:27 03/27/20 14:15 03/28/20 04:25 SARS-CoV-2 Antigen (Rapid) Negative (NEGATIVE) Sodium Level 138 mmol/L (136-145) Potassium Level 3.6 mmol/L (3.5-5.1) Chloride Level 100 mmol/L (98-107) Carbon Dioxide Level 30 mmol/L (21-32) Anion Gap 8 (6-14) Blood Urea Nitrogen 12 mg/dL (8-26) Creatinine 1.2 mg/dL (0.7-1.3) Estimated GFR (Cockcroft-Gault) 70.7 Glucose Level 105 mg/dL (70-99) Calcium Level 8.7 mg/dL (8.5-10.1) C-Reactive Protein, Quantitative 324.0 mg/L (0-3.3) Vitamin B12 Level 387 pg/mL (247-911) Microbiology 03/24/20 Blood Culture - Preliminary, Resulted NO GROWTH AFTER 4 DAYS Medications Current Medications Ondansetron HCl (Zofran) 4 mg PRN Q8HRS PRN IV NAUSEA/VOMITING; Start 03/24/20 at 14:45; Stop 03/25/20 at 14:44; Status DC Acetaminophen (Tylenol) 650 mg PRN Q4HRS PRN PO FEVER > 100.3'F; Start 03/24/20 at 14:45; Stop 03/25/20 at 14:44; Status DC Potassium Chloride (Klor-Con) 40 meq 1X ONCE PO Last administered on 03/24/20at 16:06; Start 03/24/20 at 14:45; Stop 03/24/20 at 14:49; Status DC Potassium Chloride (Klor-Con) 40 meq 1X PRN PRN PO SEE COMMENTS; Start 03/24/20 at 19:15 Potassium Bicarbonate (Potassium Effervescent Tablet) 40 meq 1X PRN PRN FT SEE COMMENTS; Start 03/24/20 at 19:15 Acetaminophen/ Hydrocodone Bitart (Lortab 5/325) 1 tab PRN Q4HRS PRN PO MILD PAIN 1-3 Last administered on 03/27/20 22:07; Start 03/24/20 at 19:15 Docusate Sodium (Colace) 100 mg BID PO Last administered on 03/28/20at 08:35; Start 03/24/20 at 21:00 Heparin Sodium (Porcine) (Heparin Sodium) 5,000 unit Q12HR SQ Last administered on 03/27/20at 22:05; Start 03/24/20 at 21:00; Stop 03/28/20 at 07:04; Status DC Potassium Chloride (Klor-Con) 40 meq 1X ONCE PO Last administered on 03/24/20at 22:54; Start 03/24/20 at 19:45; Stop 03/24/20 at 19:46; Status DC Acetaminophen/ Codeine Phosphate (Tylenol #3) 2 tab PRN Q6HRS PRN PO MODERATE PAIN 4-6; Start 03/24/20 at 23:45 Amlodipine Besylate (Norvasc) 10 mg DAILY PO Last administered on 03/28/20at 08:35; Start 03/25/20 at 09:00 Clonidine HCl (Catapres) 0.2 mg QHS PO Last administered on 03/27/20at 22:01; Start 03/25/20 at 00:00 Cyclobenzaprine HCl (Flexeril) 10 mg PRN TID PRN PO MUSCLE PAIN Last administered on 03/27/20 22:07; Start 03/24/20 at 23:45 Furosemide (Lasix) 40 mg DAILY PO Last administered on 03/28/20 08:35; Start 03/25/20 at 09:00 Potassium Chloride (Klor-Con) 20 meq DAILY PO Last administered on 03/28/20at 08 :35; Start 03/25/20 at 09:00 Trimethoprim/ Sulfamethoxazole (Bactrim Ds) 1 tab BID PO Last administered on 03/27/20at 22:01; Start 03/25/20 at 09:00; Stop 03/28/20 at 07:01; Status DC Lactobacillus Rhamnosus (Culturelle) 1 cap BID PO ; Start 03/26/20 at 21:00; Status Cancel Dexamethasone Sodium Phosphate (Decadron) 4 mg Q6H IV ; Start 03/27/20 at 16:30; Stop 03/27/20 at 16:29; Status DC Dexamethasone Sodium Phosphate (Decadron) 4 mg Q6H IVP ; Start 03/27/20 at 16:30 Dexamethasone (Decadron) 4 mg Q6HRS PO Last administered on 03/28/20at 08:35; Start 03/28/20 at 08:00 Active Scripts Active Konsyl Formula-D Fiber Powder (Psyllium Husk (with Dextrose)) 397 Gm Powder 397 Gm PO DAILY 30 Days Acetaminophen-Cod #3 Tablet (Acetaminophen/Codeine Phosphate) 1 Each Tablet 2 Tab PO PRN Q6HRS PRN 6 Days Reported Cyclobenzaprine Hcl 10 Mg Tablet 10 Mg PO PRN TID PRN Klor-Con M20 (Potassium Chloride) 20 Meq Tab.er.prt 20 Meq PO DAILY Amlodipine Besylate 10 Mg Tablet 10 Mg PO DAILY Clonidine Hcl 0.2 Mg Tablet 1 Tab PO QHS Vitals/I & O Vital Sign - Last 24 Hours 03/27/20 03/27/20 03/27/20 03/27/20 15:00 19:00 20:10 22:01 Temp 98.2 99.0 98.2 99.0 Pulse 86 101 101 Resp 20 20 B/P (MAP) 152/76 (101) 150/78 (102) 150/78 Pulse Ox 99 99 O2 Delivery Room Air Room Air Room Air 03/27/20 03/27/20 03/27/20 03/28/20 22:07 22:47 23:40 03:00 Temp 98.6 98.5 98.6 98.5 Pulse 94 79 Resp 18 24 18 21 B/P (MAP) 163/84 (110) 123/68 (86) Pulse Ox 99 95 95 95 O2 Delivery Room Air Room Air Room Air Room Air 03/28/20 03/28/20 03/28/20 03/28/20 07:36 08:00 08:35 11:21 Temp 98.7 98.6 98.7 98.6 Pulse 82 82 73 Resp 18 18 B/P (MAP) 133/75 (94) 133/75 149/79 (102) Pulse Ox 96 98 O2 Delivery Room Air Room Air Room Air Intake and Output 03/27/20 03/27/20 03/28/20 15:00 23:00 07:00 Intake Total 315 ml 100 ml 360 ml Output Total 0 ml Balance 315 ml 100 ml 360 ml Images MRI Cervical Spine Without Contrast History:HNP, evaluate for myelopathy Technique: Multiplanar, multi sequential noncontrast MR imaging was performed of the cervical spine. Comparison: CT cervical spine March 24, 2020 Findings: There is some motion. Cervical vertebral body stature is overall maintained. There is multilevel fairly advanced degenerative disc disease greatest C5-6, C6-7, and C7-T1, to a lesser degree C3-4 and C4-5. Cervical cord caliber is within normal limits, no defined or expansile signal abnormality. There is some heterogeneous signal about the posterior dens, some calcification in this region on CT. There is some amorphous edema of the dens, more likely reactive/degenerative in etiology. C2-C3: There is severe left facet degenerative change contributing to mild to moderate posterior narrowing of the left neural foramen. Right neural foramen and spinal canal are adequate. C3-C4: There is very minimal disc osteophyte complex and bulge. Central canal is narrowed to about 8-9 mm. There is severe bilateral facet degenerative change. There is also bilateral uncovertebral degenerative change. There is severe right greater than left neural foramina compromise. C4-C5: There is very minimal disc osteophyte complex and bulge. Central canal is narrowed to about 8 to 9 mm. There is severe right facet degenerative change, to a somewhat lesser degree of the left. There is uncovertebral degenerative change greater on the right. There is severe right and at least moderate left neural foramina compromise. C5-C6: There is minimal disc osteophyte complex and bulge. Central canal is narrowed to about 8 mm as measured on sagittal images. There is severe right facet hypertrophic change, to a lesser degree on the left. There is right uncovertebral degenerative change. There is fairly severe narrowing of the right neural foramen, left neural foramen adequate. C6-C7: There is disc osteophyte complex, superimposed shallow protrusion with associated annular tear. There is indentation upon the ventral thecal sac, central canal narrowed to about 7 mm. There is bilateral facet hypertrophic change. There is minimal narrowing of the left neural foramen, right neural foramen adequate. C7-T1: Spinal canal and left neural foramen are adequate. There is facet hypertrophic change greater on the right, also mild right uncovertebral degenerative change resulting in likely mild narrowing the right neural foramen. Impression: 1. There is advanced degenerative disc disease greatest C5-6 and C7-T1 and to lesser degree at C3-4 and C4-5. There is multilevel spondylosis. 2. There is central canal stenosis about 7 mm at C6-7 and to a somewhat lesser degree C3-4 through C5-C6 as described. 3. Facet and uncovertebral degenerative change contributes to multilevel neural foramina compromise, more significant narrowing bilaterally at C3-4, on the right at C4-5 and C5-6, and to lesser degree on the left at C4-5. 4. There is some amorphous edema of the dens more likely reactive/degenerative in etiology, also some nonspecific signal change about the dorsal dens which may be component of pannus formation as could be seen with rheumatoid arthritis or crystalline disease. However there is no erosion of the dens. MRI Brain without contrast History:Stroke, recent history of weakness Technique: Multiplanar, multisequential noncontrast MR imaging was performed of the brain. Comparison: March 24, [address], no previous MRI brain available Findings: There is some motion degradation. Allowing for motion, there is no convincing evidence of recent infarct. The ventricles, sulci, and cisterns are within normal limits in size and configuration. There is no significant midline shift, intraaxial mass effect, or focal abnormal extra-axial fluid collection. There is scattered minimal T2 and FLAIR hyperintense signal of the supratentorial parenchyma bilaterally. There is preservation of the major intracranial flow-voids at the skull base. The cerebellar tonsils are normal in location. There is no significant abnormality of the pineal gland or pituitary gland. Paranasal sinuses are overall aerated. The mastoid air cells are aerated. There is preserved marrow signal of the clivus. There has been lens surgery on the right, somewhat disconjugate gaze. There is some signal change associated with the transverse ligament of C1, corresponds with some buckling and calcification on CT. Impression: 1. There is no convincing evidence of recent infarct. 2. Mild T2 and FLAIR hyperintense signal of the supratentorial parenchyma bilaterally is nonspecific, more commonly due to chronic microvascular ischemic disease in a patient this age. Justicifation of Admission Dx: Justifications for Admission: Justification of Admission Dx: Yes DHARA PERRY MD Mar 28, 2020 12:18
[2020-03-28 15:20] VITALS: BP 137/73
--- NOTE | 2020-03-28 17:52 | PDOC ---
Provider Note Date of Service: DATE: 03/28/20 TIME: 17:43 Provider Note Patient seen and examined at 1240 consulted for cervical stenosis/ myelopathy complains of neck pain and weakness left> right Exam- right upper extremity has normal strength, right lower extremity- hip flexor 3/5, left upper extremity- triceps and hand grasps 3/5, left lower extremity 2-3/5 Cervical MRI with multilevel stenosis, most severe at C6-7 On steroids Plan for ACDF tomorrow D/W patient and daughter, questions answered Justifications for Admission Other Justification KIMMY HARDWICK MD Mar 28, 2020 17:52
[2020-03-28 19:00] VITALS: BP 152/75
[2020-03-28] MEDS: CYCLOBENZAPRINE 10 MG TABLET. PO PRN (20:46)
[2020-03-28] MEDS: HYDROcodone/APAP 5/325MG 1 TAB TABLET PO PRN (20:47)
[2020-03-28] MEDS: cloNIDine HCL 0.2 MG TABLET PO SCH (20:47)
[2020-03-28 22:56] VITALS: BP 160/89
[2020-03-29] VITALS (11 sets, daily range): BP systolic 133–149; BP diastolic 77–90
[2020-03-29] MEDS: DEXAMETHASONE 4 MG TABLET PO SCH ×4 (00:34→19:33)
[2020-03-29 02:08] LABS: HEMOGLOBIN A1C 5.9 % (4.8-5.6)
[2020-03-29] MEDS ORDERED: BACITRACIN 50,000 UNIT in IV NORMAL SALINE 1000ML BAG 1,000 ML IRR ONE (06:00)
[2020-03-29] MEDS ORDERED: GELATIN SPONGE SIZE 100. ONE (08:22)
[2020-03-29] MEDS ORDERED: THROMBIN TOPICAL 20,000 UNIT SPRAY.SYRN KIT TP ONE (08:23)
[2020-03-29] MEDS ORDERED: BUPIVACAINE-EPI 0.5%-1:200000 MPF 30 ML VIAL. ONE (08:23)
--- NOTE | 2020-03-29 08:41 | PDOC ---
[facility] PROGRESS NOTE Date of Service DOS: DATE: 03/29/20 TIME: 08:37 Chief Complaint Chief Complaint Cervical spinal stenosis Unable to walk Bilateral leg weakness, arm weakness of unclear etiology. L>R History of prostate and bladder cancer Chronic Neck pain Hypokalemia Severe protein calorie malnutrition Plan: Pending neurosurgery evaluation Pain control PT OT Heparin for DVT prophylaxis Not indicated GI prophylaxis ADA diet Full code Discussed with RN and SW Disposition pending neurosurgery evaluation Surrogate decision maker is the patient at this time D/w daughter, Berkley, History of Present Illness History of Present Illness Mr Smith is a 79 yo male with PMHx of prostate cancer, who presents with complaint of worsening weakness for the past week prior to admission. States his weakness is mostly in his legs, with associated throbbing neck pain, 8/10, and left hand numbness. His symptoms started one week ago with a "crook" in his neck. He was seen at [facility] and prescribed a muscle relaxer and pain med ication without improvement. His symptoms progressed to the point of suffering a fall at home, which prompted his ED visit. He denies any prior injury to his neck.Denies any fever or unintentional weight-loss. 03/25: Patient continues to have neck pain and associated left upper extremity weakness and bilateral lower extremity weakness. No bladder or bowel incontinence. 03/26: No acute changes in neuro exam. Neurology consulted. MRI ordered. 03/27: Afebrile. He is unable to lift his left leg against gravity today his left arm is weak as well. Neck pain improved. MRI brain negative for CVA. MRI cervical spine There is central canal stenosis about 7 mm at C6-7. 03/28: Still with left leg weakness, started on decadron. CRP 324. No SOB or CP. D/w daughter Stronger today. Plans for ACDF this afternoon. No CP or SOB. Vitals/I&O Vitals/I&O: Vital Signs Date Time Temp Pulse Resp B/P (MAP) Pulse Ox O2 Delivery O2 Flow Rate FiO2 03/29/20 07:00 97.9 77 18 144/79 (100) 94 Room Air 97.9 I & O 03/28/20 03/28/20 03/29/20 15:00 23:00 07:00 Intake Total 175 ml 50 ml Balance 175 ml 50 ml Physical Exam Physical Exam: General: Alert, Oriented X3, Cooperative, No acute distress HEENT: PERRLA Lungs: Clear to auscultation, Normal air movement Heart: RRR, no murmurs Cardiovascular: S1, S2 Abdomen: Normal bowel sounds, No tenderness Extremities: 2+ pitting edema bilateral legs Skin: No rashes, No breakdown Neuro: Strength 2/5 LUE, 5/5 in RUE. Bilateral LE weakness Psych/Mental Status: Mental status NL, Mood NL General: Alert, Oriented X3, Cooperative, No acute distress Abdomen: Normal bowel sounds, No tenderness Extremities: No clubbing, No cyanosis, Other (2+ pitting edema bilateral legs) Skin: No rashes, No breakdown Assessment and Plan Assessmemt and Plan Problems Medical Problems: (1) Fall Status: Acute (2) Hypokalemia Status: Acute (3) Weakness Status: Acute Comment Review of Relevant I have reviewed the following items yessenia (where applicable) has been applied. Justifications for Admission Other Justification MINDY LOZA MD Mar 29, 2020 08:41
[2020-03-29] MEDS: POTASSIUM CHLORIDE 20 MEQ TABLET.ER. PO SCH (09:00)
[2020-03-29] MEDS: DOCUSATE SODIUM 100 MG CAPSULE. PO SCH ×2 (09:00→21:06)
[2020-03-29] MEDS: amLODIPine BESYLATE 10 MG TABLET PO SCH (09:00)
[2020-03-29] MEDS: FUROSEMIDE 40 MG TABLET. PO SCH (09:00)
[2020-03-29 10:01] LABS: BASO % 0 % (0-3); EOS % 0 % (0-3); HEMATOCRIT 39.8 % (39.0-53.0); HEMOGLOBIN 13.4 g/dL (13.0-17.5); LYMPH # 0.5 x10^3/uL (1.0-4.8); LYMPH % 6 % (24-48); MEAN CORPUSCULAR HEMOGLOBIN 29 pg (25-35); MEAN CORPUSCULAR HGB CONC 34 g/dL (31-37); MEAN CORPUSCULAR VOLUME 87 fL (79-100); MONO # 0.3 x10^3/uL (0.0-1.1); MONO % 3 % (0-9); NEUT # 7.3 x10^3/uL (1.8-7.7); NEUT % 91 % (31-73); PLATELET COUNT 343 x10^3/uL (140-400); RED BLOOD COUNT 4.56 x10^6/uL (4.30-5.70); RED CELL DISTRIBUTION WIDTH 14.9 % (11.5-14.5); WHITE BLOOD COUNT 8.1 x10^3/uL (4.0-11.0)
[2020-03-29 10:35] LABS: ALBUMIN 2.3 g/dL (3.4-5.0); ALBUMIN/GLOBULIN RATIO 0.5 (1.0-1.7); CALCIUM 9.2 mg/dL (8.5-10.1); CREATININE 0.9 mg/dL (0.7-1.3); GFR 98.5; POTASSIUM 4.5 mmol/L (3.5-5.1); TOTAL BILIRUBIN 0.3 mg/dL (0.2-1.0); TOTAL PROTEIN 7.2 g/dL (6.4-8.2)
--- NOTE | 2020-03-29 11:01 | PDOC ---
PROGRESS NOTES Date of Service DATE: 03/29/20 TIME: 10:59 Assessment Problems Medical Problems: (1) Fall Status: Acute (2) Hypokalemia Status: Acute (3) Weakness Status: Acute Cervical myelopathy after fall, with advanced degenerative disc disease greatest C5-6 and C7-T1 and to lesser degree at C3-4 and C4-5, multilevel spondylosis, central canal stenosis about 7 mm at C6-7 and to a somewhat lesser degree C3-4 through C5-C6, facet and uncovertebral degenerative change with multilevel neural foramina compromise, and amorphous edema of the dens Better with steroids Doubt neuromuscular junction disease. He does have peripheral neuropathy. Note that at baseline he gets around with a walker History of prostate and bladder cancer Elevated CRP, rest of laboratory studies negative Plan Decadron for a few days ACDF Recheck CRP in a month Rehabilitation modalities DVT prophylaxis Subjective Denies pain Objective Vital Signs Date Time Temp Pulse Resp B/P (MAP) Pulse Ox O2 Delivery O2 Flow Rate FiO2 03/29/20 10:54 97.8 80 18 149/85 (106) 95 Room Air 97.8 Intake and Output 03/29/20 07:00 Intake Total 225 ml Balance 225 ml Intake Oral 225 ml # Voids 6 PHYSICAL EXAM Alert. Oriented to time, place and person. PERRL. EOMI. CN: no focal findings. Muscle tone: normal. Muscle strength: 3/5 DTR: 0-1+ Plantar reflex: flexor Gait: not examined in bed. Sensory exam: stocking loss. No cerebellar signs elicited. Review of Relevant I have reviewed the following items yessenia (where applicable) has been applied. Labs Laboratory Tests Test 03/27/20 12:27 03/27/20 14:15 03/27/20 15:13 03/28/20 04:25 SARS-CoV-2 Antigen (Rapid) Negative (NEGATIVE) Sodium Level 138 mmol/L (136-145) Potassium Level 3.6 mmol/L (3.5-5.1) Chloride Level 100 mmol/L (98-107) Carbon Dioxide Level 30 mmol/L (21-32) Anion Gap 8 (6-14) Blood Urea Nitrogen 12 mg/dL (8-26) Creatinine 1.2 mg/dL (0.7-1.3) Estimated GFR (Cockcroft-Gault) 70.7 Glucose Level 105 mg/dL (70-99) Calcium Level 8.7 mg/dL (8.5-10.1) Coronavirus (PCR) Not detected (Not Detected) Hemoglobin A1c 5.9 % (4.8-5.6) C-Reactive Protein, Quantitative 324.0 mg/L (0-3.3) Vitamin B12 Level 387 pg/mL (247-911) Test 03/29/20 09:38 White Blood Count 8.1 x10^3/uL (4.0-11.0) Red Blood Count 4.56 x10^6/uL (4.30-5.70) Hemoglobin 13.4 g/dL (13.0-17.5) Hematocrit 39.8 % (39.0-53.0) Mean Corpuscular Volume 87 fL (79-100) Mean Corpuscular Hemoglobin 29 pg (25-35) Mean Corpuscular Hemoglobin Concent 34 g/dL (31-37) Red Cell Distribution Width 14.9 % (11.5-14.5) Platelet Count 343 x10^3/uL (140-400) Neutrophils (%) (Auto) 91 % (31-73) Lymphocytes (%) (Auto) 6 % (24-48) Monocytes (%) (Auto) 3 % (0-9) Eosinophils (%) (Auto) 0 % (0-3) Basophils (%) (Auto) 0 % (0-3) Neutrophils # (Auto) 7.3 x10^3/uL (1.8-7.7) Lymphocytes # (Auto) 0.5 x10^3/uL (1.0-4.8) Monocytes # (Auto) 0.3 x10^3/uL (0.0-1.1) Eosinophils # (Auto) 0.0 x10^3/uL (0.0-0.7) Basophils # (Auto) 0.0 x10^3/uL (0.0-0.2) Sodium Level 140 mmol/L (136-145) Potassium Level 4.5 mmol/L (3.5-5.1) Chloride Level 104 mmol/L (98-107) Carbon Dioxide Level 26 mmol/L (21-32) Anion Gap 10 (6-14) Blood Urea Nitrogen 18 mg/dL (8-26) Creatinine 0.9 mg/dL (0.7-1.3) Estimated GFR (Cockcroft-Gault) 98.5 BUN/Creatinine Ratio 20 (6-20) Glucose Level 121 mg/dL (70-99) Calcium Level 9.2 mg/dL (8.5-10.1) Total Bilirubin 0.3 mg/dL (0.2-1.0) Aspartate Amino Transf (AST/SGOT) 36 U/L (15-37) Alanine Aminotransferase (ALT/SGPT) 59 U/L (16-63) Alkaline Phosphatase 116 U/L (46-116) Creatine Kinase 234 U/L (39-308) Total Protein 7.2 g/dL (6.4-8.2) Albumin 2.3 g/dL (3.4-5.0) Albumin/Globulin Ratio 0.5 (1.0-1.7) Laboratory Tests Test 03/29/20 09:38 White Blood Count 8.1 x10^3/uL (4.0-11.0) Red Blood Count 4.56 x10^6/uL (4.30-5.70) Hemoglobin 13.4 g/dL (13.0-17.5) Hematocrit 39.8 % (39.0-53.0) Mean Corpuscular Volume 87 fL (79-100) Mean Corpuscular Hemoglobin 29 pg (25-35) Mean Corpuscular Hemoglobin Concent 34 g/dL (31-37) Red Cell Distribution Width 14.9 % (11.5-14.5) Platelet Count 343 x10^3/uL (140-400) Neutrophils (%) (Auto) 91 % (31-73) Lymphocytes (%) (Auto) 6 % (24-48) Monocytes (%) (Auto) 3 % (0-9) Eosinophils (%) (Auto) 0 % (0-3) Basophils (%) (Auto) 0 % (0-3) Neutrophils # (Auto) 7.3 x10^3/uL (1.8-7.7) Lymphocytes # (Auto) 0.5 x10^3/uL (1.0-4.8) Monocytes # (Auto) 0.3 x10^3/uL (0.0-1.1) Eosinophils # (Auto) 0.0 x10^3/uL (0.0-0.7) Basophils # (Auto) 0.0 x10^3/uL (0.0-0.2) Sodium Level 140 mmol/L (136-145) Potassium Level 4.5 mmol/L (3.5-5.1) Chloride Level 104 mmol/L (98-107) Carbon Dioxide Level 26 mmol/L (21-32) Anion Gap 10 (6-14) Blood Urea Nitrogen 18 mg/dL (8-26) Creatinine 0.9 mg/dL (0.7-1.3) Estimated GFR (Cockcroft-Gault) 98.5 BUN/Creatinine Ratio 20 (6-20) Glucose Level 121 mg/dL (70-99) Calcium Level 9.2 mg/dL (8.5-10.1) Total Bilirubin 0.3 mg/dL (0.2-1.0) Aspartate Amino Transf (AST/SGOT) 36 U/L (15-37) Alanine Aminotransferase (ALT/SGPT) 59 U/L (16-63) Alkaline Phosphatase 116 U/L (46-116) Creatine Kinase 234 U/L (39-308) Total Protein 7.2 g/dL (6.4-8.2) Albumin 2.3 g/dL (3.4-5.0) Albumin/Globulin Ratio 0.5 (1.0-1.7) Microbiology 03/24/20 Blood Culture - Preliminary, Resulted NO GROWTH AFTER 4 DAYS Medications Current Medications Ondansetron HCl (Zofran) 4 mg PRN Q8HRS PRN IV NAUSEA/VOMITING; Start 03/24/20 at 14:45; Stop 03/25/20 at 14:44; Status DC Acetaminophen (Tylenol) 650 mg PRN Q4HRS PRN PO FEVER > 100.3'F; Start 03/24/20 at 14:45; Stop 03/25/20 at 14:44; Status DC Potassium Chloride (Klor-Con) 40 meq 1X ONCE PO Last administered on 03/24/20at 16:06; Start 03/24/20 at 14:45; Stop 03/24/20 at 14:49; Status DC Potassium Chloride (Klor-Con) 40 meq 1X PRN PRN PO SEE COMMENTS; Start 03/24/20 at 19:15 Potassium Bicarbonate (Potassium Effervescent Tablet) 40 meq 1X PRN PRN FT SEE COMMENTS; Start 03/24/20 at 19:15 Acetaminophen/ Hydrocodone Bitart (Lortab 5/325) 1 tab PRN Q4HRS PRN PO MILD PAIN 1-3 Last administered on 03/28/20at 20:47; Start 03/24/20 at 19:15 Docusate Sodium (Colace) 100 mg BID PO Last administered on 03/28/20at 20:47; Start 03/24/20 at 21:00 Heparin Sodium (Porcine) (Heparin Sodium) 5,000 unit Q12HR SQ Last administered on 03/27/20at 22:05; Start 03/24/20 at 21:00; Stop 03/28/20 at 07:04; Status DC Potassium Chloride (Klor-Con) 40 meq 1X ONCE PO Last administered on 03/24/20at 22:54; Start 03/24/20 at 19:45; Stop 03/24/20 at 19:46; Status DC Acetaminophen/ Codeine Phosphate (Tylenol #3) 2 tab PRN Q6HRS PRN PO MODERATE PAIN 4-6; Start 03/24/20 at 23:45 Amlodipine Besylate (Norvasc) 10 mg DAILY PO Last administered on 03/28/20at 08:35; Start 03/25/20 at 09:00 Clonidine HCl (Catapres) 0.2 mg QHS PO Last administered on 03/28/20 20:47; Start 03/25/20 at 00:00 Cyclobenzaprine HCl (Flexeril) 10 mg PRN TID PRN PO MUSCLE PAIN Last administered on 03/28/20at 20:46; Start 03/24/20 at 23:45 Furosemide (Lasix) 40 mg DAILY PO Last administered on 03/28/20at 08:35; Start 03/25/20 at 09:00 Potassium Chloride (Klor-Con) 20 meq DAILY PO Last administered on 03/28/20at 08:35; Start 03/25/20 at 09:00 Trimethoprim/ Sulfamethoxazole (Bactrim Ds) 1 tab BID PO Last administered on 03/27/20at 22:01; Start 03/25/20 at 09:00; Stop 03/28/20 at 07:01; Status DC Lactobacillus Rhamnosus (Culturelle) 1 cap BID PO ; Start 03/26/20 at 21:00; Status Cancel Dexamethasone Sodium Phosphate (Decadron) 4 mg Q6H IV ; Start 03/27/20 at 16:30; Stop 03/27/20 at 16:29; Status DC Dexamethasone Sodium Phosphate (Decadron) 4 mg Q6H IVP ; Start 03/27/20 at 16:30; Stop 03/28/20 at 14:11; Status DC Dexamethasone (Decadron) 4 mg Q6HRS PO Last administered on 03/29/20at 05:54; Start 03/28/20 at 08:00 Bacitracin 41148 unit/Sodium Chloride 1,000 ml @ 1,000 mls/hr 1X ONCE IRR ; Start 03/29/20 at 06:00; Stop 03/29/20 at 06:59; Status DC Cefazolin Sodium/ Dextrose 50 ml @ 100 mls/hr 1X PREOP PRN IV PRIOR TO PROCEDURE; Start 03/29/20 at 06:00; Stop 03/29/20 at 18:00 Gelatin (Gelfoam Size 100) 1 each STK-MED ONCE .ROUTE ; Start 03/29/20 at 08:22; Stop 03/29/20 at 08:23; Status DC Bupivacaine HCl/ Epinephrine Bitart (Sensorcain-Epi 0.5%-1:348446 Mpf) 30 ml STK-MED ONCE .ROUTE ; Start 03/29/20 at 08:23; Stop 03/29/20 at 08:23; Status DC Thrombin 20,000 unit STK-MED ONCE TP ; Start 03/29/20 at 08:23; Stop 03/29/20 at 08:23; Status DC Active Scripts Active Konsyl Formula-D Fiber Powder (Psyllium Husk (with Dextrose)) 397 Gm Powder 397 Gm PO DAILY 30 Days Acetaminophen-Cod #3 Tablet (Acetaminophen/Codeine Phosphate) 1 Each Tablet 2 Tab PO PRN Q6HRS PRN 6 Days Reported Cyclobenzaprine Hcl 10 Mg Tablet 10 Mg PO PRN TID PRN Klor-Con M20 (Potassium Chloride) 20 Meq Tab.er.prt 20 Meq PO DAILY Amlodipine Besylate 10 Mg Tablet 10 Mg PO DAILY Clonidine Hcl 0.2 Mg Tablet 1 Tab PO QHS Vitals/I & O Vital Sign - Last 24 Hours 03/28/20 03/28/20 03/28/20 03/28/20 11:21 15:20 19:00 20:05 Temp 98.6 98.7 98.9 98.6 98.7 98.9 Pulse 73 84 90 Resp 18 21 B/P (MAP) 149/79 (102) 137/73 (94) 152/75 (100) Pulse Ox 98 99 95 O2 Delivery Room Air Room Air Room Air Room Air 03/28/20 03/28/20 03/28/20 03/28/20 20:47 20:47 22:56 23:39 Temp 98.5 98.5 Pulse 90 86 Resp 18 18 B/P (MAP) 152/75 160/89 (112) Pulse Ox 95 97 97 O2 Delivery Room Air Room Air Room Air 03/29/20 03/29/20 03/29/20 03/29/20 03:00 07:00 08:00 09:00 Temp 97.6 97.9 97.6 97.9 Pulse 87 77 77 Resp 18 B/P (MAP) 145/85 (105) 144/79 (100) 144/79 Pulse Ox 96 94 O2 Delivery Room Air Room Air Room Air 03/29/20 10:54 Temp 97.8 97.8 Pulse 80 Resp 18 B/P (MAP) 149/85 (106) Pulse Ox 95 O2 Delivery Room Air Intake and Output 03/28/20 03/28/20 03/29/20 15:00 23:00 07:00 Intake Total 175 ml 50 ml Balance 175 ml 50 ml Justicifation of Admission Dx: Justifications for Admission: Justification of Admission Dx: Yes DHARA PERRY MD Mar 29, 2020 11:01
[2020-03-29] MEDS ORDERED: IV RINGERS,LACTATED 1000ML 1,000 ML IV SCH (11:38)
[2020-03-29] MEDS ORDERED: fentaNYL PF VIAL 100 MCG/2 ML VIAL IV PRN ×2 (11:45)
[2020-03-29] MEDS ORDERED: HYDROmorphone 2 MG/ML VIAL IV PRN (11:45)
[2020-03-29] MEDS ORDERED: PROCHLORPERAZINE 10 MG/2 ML VIAL. IV PRN (11:45)
[2020-03-29] MEDS ORDERED: MORPHINE SULFATE 2 MG/ML VIAL. IV PRN (11:45)
[2020-03-29] MEDS ORDERED: LIDOCAINE 1% PF 2 ML VIAL. ID PRN (11:45)
[2020-03-29] MEDS ORDERED: ONDANSETRON PF 4 MG/2 ML VIAL. IV PRN (11:45)
[2020-03-29] MEDS ORDERED: PROPOFOL 10 MG/ML (20ML) VIAL. IV ONE (11:59)
[2020-03-29] MEDS ORDERED: PROPOFOL 50 ML IV ONE ×3 (11:59→15:12)
[2020-03-29] MEDS ORDERED: LIDOCAINE 2% PF 5 ML VIAL. ONE (11:59)
[2020-03-29] MEDS ORDERED: fentaNYL PF VIAL 100 MCG/2 ML VIAL ONE (12:00)
[2020-03-29] MEDS ORDERED: SUCCINYLCHOLINE 200 MG/10 ML VIAL. ONE (12:00)
[2020-03-29] MEDS ORDERED: ROCURONIUM 50 MG/5 ML VIAL. ONE (12:00)
[2020-03-29] MEDS ORDERED: REMIFENTANIL 2 MG VIAL. IV ONE (12:01)
[2020-03-29] MEDS ORDERED: PHENYLEPHRINE 10 MG/ML VIAL. ONE (13:06)
--- NOTE | 2020-03-29 13:06 | NUR ---
EMIR following. Spoke with RN and reviewed chart. Pt in surgery today. EMIR phoned and faxed updated clinicals to [facility]. EMIR returned call to [facility] at [phone] to coordinate care. Discharge plans remains to acute rehab with [facility] when stable. EMIR following. Addendum: 03/30/20 at 0939 by SUSAN FIELD pt transferred to [facility] anayeli Clifton to follow.
[2020-03-29] MEDS ORDERED: GLYCOPYRROLATE 1 MG/5 ML VIAL. ONE (14:09)
[2020-03-29] MEDS ORDERED: REMIFENTANIL 1 MG VIAL. IV ONE (15:22)
[2020-03-29] MEDS ORDERED: DESFLURANE > 120 MINUTES IH ONE (16:33)
[2020-03-29] MEDS ORDERED: fentaNYL PF VIAL 100 MCG/2 ML VIAL IVP PRN (17:00)
--- NOTE | 2020-03-29 17:45 | NUR ---
Arrived to unit by bed from PACU. Awakens easily but falls back to sleep. Anterior neck dressing d/i with soft collar and ice pack. Pt has no pain. Equal hand information technology officer, warm and radial pulse +. IVF's intact and infusing. O2 at 4l per n/c Sating at 96%. NEAL's and BRYAN's bilaterally. Side rails up x's 3 with call light in reach. Daughters at bedside. Cont. monitor.
--- NOTE | 2020-03-29 18:19 | OP ---
DATE OF SURGERY: 03/29/2020 PREOPERATIVE DIAGNOSES: Cervical disc herniation and cervical myelopathy, C6-C7. POSTOPERATIVE DIAGNOSES: Cervical disc herniation and cervical myelopathy, C6-C7. OPERATION PERFORMED: Anterior cervical microdiscectomy, C6-C7, anterior cervical interbody fusion, C6-C7; anterior cervical plate, C6-C7. The operation was done with EMG monitoring, SSEP monitoring, NIMS monitoring, motor evoked potentials, fluoroscopy, microscopic dissection. SURGEON: Fransisco Hardwick M.D. [employer] MATH TEACHER: CHICO Mendoza assisted with the surgery. She assisted with the exposure, the decompression, discectomy, placement of interbody cage, plate and closure. OPERATIVE INDICATIONS: The patient is a very pleasant 79-year-old man who has developed progressive signs of myelopathy. On imaging studies, he was found to have multilevel degrees of stenosis, but most severe at C6-C7. I recommended an anterior cervical discectomy and fusion at this level. I spoke with him about the surgery and the risks as well as speaking with his daughter of the same. They understood and wished to go ahead. DESCRIPTION OF PROCEDURE: Following general endotracheal anesthesia, the patient was positioned supine on the operating room table. The anterior cervical region was prepped and draped in standard fashion. NEAL hose and AV impulse boots were applied for DVT prophylaxis. A microscope was draped. Fluoroscopy was draped and brought into field. Monitoring was established. Ancef 2 grams was given less than 1 hour prior to initiation of surgery. Using fluoroscopic guidance, an incision was made 1 fingerbreadth above the clavicle from the midline around to the right side in a skin crease. I dissected down through skin and subcutaneous tissue, reflected the periosteum and passed sharply through the platysma and then around the medial aspect of sternocleidomastoid and carotid artery sheath down the anterior cervical vertebral bodies and I gently reflected the trachea and esophagus laterally and placed retractors. On initial film; however, was at the C4-C5 and I gently dissected inferiorly exposing the C6-C7 and placing the cervical retractors at this level. I then placed 14 mm distraction pins in C6 and C7 and distracted the disc space. There was considerable spurring with a large bone exuberant osteophyte on the right side of the anterior vertebral bodies of C6 and C7, which I drilled down entering the disc space and removed badly degenerated disc and gradually was able to distract the disc space. I drilled posteriorly. There was a large amount of spurring and I removed this. The disc was bulging significantly and I peeled this back and removed the disc and then opened the ligament laterally bilaterally and fully decompressed the region. At this point, then I measured and placed an 8 mm interbody fusion cage, which was packed with allograft bone after obtaining absolutely perfect hemostasis. I then used a 12 mm anterior [place] plate and placed 14 mm screws 2 above, 2 below and these were screwed down and locked. I did remove the distraction pins during this time. I then irrigated copiously and made sure that there was perfect hemostasis. I took films which showed the plate at C6-C7. I irrigated and I closed the wound in layers with absorbable suture. The skin was closed with 4-0 subcuticular stitch. The operation went very well. I was quite pleased with the surgery. FRANSISCO HARDWICK MD DR: JOSEPH/todd JOB#: [id number] / [id number] DEEPTI
[2020-03-29] MEDS: cloNIDine HCL 0.2 MG TABLET PO SCH (21:07)
[2020-03-30] VITALS (7 sets, daily range): BP systolic 129–150; BP diastolic 78–97
[2020-03-30] MEDS: DEXAMETHASONE 4 MG TABLET PO SCH ×4 (00:09→23:32)
[2020-03-30] MEDS: CYCLOBENZAPRINE 10 MG TABLET. PO PRN (00:12)
--- NOTE | 2020-03-30 06:24 | NUR ---
Total incontinence of urine this shift. "That's not new." Has bruising on left hip x2, "that's where I fell in the kitchen." States he lives w/ grandson. C/o left great toe pain. Toenail is dark grayish color and very long. Neck dressing D/I. MEZA, hand grasps equal. Generalized stiffness and weakness.
--- NOTE | 2020-03-30 06:54 | NUR ---
Patient states he accidentally pulled his IV out. "just leave it out."
[2020-03-30] MEDS: DOCUSATE SODIUM 100 MG CAPSULE. PO SCH ×2 (08:08→21:50)
[2020-03-30] MEDS: POTASSIUM CHLORIDE 20 MEQ TABLET.ER. PO SCH (08:08)
[2020-03-30] MEDS: FUROSEMIDE 40 MG TABLET. PO SCH (08:08)
[2020-03-30] MEDS: amLODIPine BESYLATE 10 MG TABLET PO SCH (08:09)
--- NOTE | 2020-03-30 09:40 | PDOC ---
[employer] PROGRESS NOTE Date of Service DOS: DATE: 03/30/20 TIME: 09:39 Chief Complaint Chief Complaint Cervical spinal stenosis Unable to walk Bilateral leg weakness, arm weakness of unclear etiology. L>R History of prostate and bladder cancer Chronic Neck pain Hypokalemia Severe protein calorie malnutrition Plan: Pain control PT OT ADA diet Full code D/w daughter, Berkley, Acute rehab Decadron 3 days on d/c F/u neurosurgery History of Present Illness History of Present Illness Mr Smith is a 79 yo male with PMHx of prostate cancer, who presents with complaint of worsening weakness for the past week prior to admission. States his weakness is mostly in his legs, with associated throbbing neck pain, 8/10, and left hand numbness. His symptoms started one week ago with a "crook" in his neck. He was seen at [facility] and prescribed a muscle relaxer and pain medication without improvement. His symptoms progressed to the point of suffering a fall at home, which prompted his ED visit. He denies any prior injury to his neck.Denies any fever or unintentional weight-loss. 03/25: Patient continues to have neck pain and associated left upper extremity weakness and bilateral lower extremity weakness. No bladder or bowel incontinence. 03/26: No acute changes in neuro exam. Neurology consulted. MRI ordered. 03/27: Afebrile. He is unable to lift his left leg against gravity today his left arm is weak as well. Neck pain improved. MRI brain negative for CVA. MRI cervical spine There is central canal stenosis about 7 mm at C6-7. 03/28: Still with left leg weakness, started on decadron. CRP 324. No SOB or CP. D/w daughter 03/29: To OR for anterior cervical microdiskectomy, C6-C7, anterior cervical interbody fusion, C6-C7; anterior cervical plate, C6-C7. With: EMG monitoring, SSEP monitoring, NIMS monitoring, motor evoked potentials, fluoroscopy, microscopic dissection. Stronger today. S/p ACDF 03/29 in the afternoon. No CP or SOB. Vitals/I&O Vitals/I&O: Vital Signs Date Time Temp Pulse Resp B/P (MAP) Pulse Ox O2 Delivery O2 Flow Rate FiO2 03/30/20 08:09 84 128/85 9/3/20 06:10 97.8 16 97 Nasal Cannula 2.0 97.8 I & O 03/29/20 03/29/20 03/30/20 15:00 23:00 07:00 Intake Total 1050 ml 600 ml Output Total 20 ml Balance 1030 ml 600 ml Physical Exam Physical Exam: General: Alert, Oriented X3, Cooperative, No acute distress HEENT: PERRLA Lungs: Clear to auscultation, Normal air movement Heart: RRR, no murmurs Cardiovascular: S1, S2 Abdomen: Normal bowel sounds, No tenderness Extremities: 2+ pitting edema bilateral legs Skin: No rashes, No breakdown Neuro: Strength 2/5 LUE, 5/5 in RUE. Bilateral LE weakness Psych/Mental Status: Mental status NL, Mood NL General: Alert, Oriented X3, Cooperative, No acute distress Abdomen: Normal bowel sounds, No tenderness Extremities: No clubbing, No cyanosis, Other (2+ pitting edema bilateral legs) Skin: No rashes, No breakdown Assessment and Plan Assessmemt and Plan Problems Medical Problems: (1) Fall Status: Acute (2) Hypokalemia Status: Acute (3) Weakness Status: Acute Comment Review of Relevant I have reviewed the following items yessenia (where applicable) has been applied. Justifications for Admission Other Justification MINDY LOZA MD Mar 30, 2020 09:40
[2020-03-30] MEDS ORDERED: DEXA4TAB63 PO (12:20)
--- NOTE | 2020-03-30 12:25 | PDOC ---
PROGRESS NOTES Date of Service DATE: 03/30/20 TIME: 12:23 Assessment Problems Medical Problems: (1) Fall Status: Acute (2) Hypokalemia Status: Acute (3) Weakness Status: Acute Status post, on 03/29, anterior cervical microdiskectomy, C6-C7, anterior cervical interbody fusion, C6-C7; anterior cervical plate, C6-C7. 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 Note that at baseline he gets around with a walker History of prostate and bladder cancer Elevated CRP, rest of laboratory studies negative Plan Taper Decadron Recheck CRP in a month Rehabilitation modalities DVT prophylaxis [facility] unit Also discussed with daughter Subjective no complaints Objective Vital Signs Date Time Temp Pulse Resp B/P (MAP) Pulse Ox O2 Delivery O2 Flow Rate FiO2 03/30/20 11:11 97.5 80 20 131/78 (95) 96 Room Air 97.5 03/30/20 06:10 2.0 Intake and Output 03/30/20 07:00 Intake Total 1650 ml Output Total 20 ml Balance 1630 ml Intake Oral 600 ml IV Total 1050 ml Estimated Blood Loss 20 ml # Voids 2 PHYSICAL EXAM Alert. Oriented to time, place and person. PERRL. EOMI. CN: no focal findings. Muscle tone: normal. Muscle strength: 3/5 DTR: 0-1+ Plantar reflex: flexor Gait: not examined in bed. Sensory exam: stocking loss. No cerebellar signs elicited. Review of Relevant I have reviewed the following items yessenia (where applicable) has been applied. Labs Laboratory Tests Test 03/29/20 09:38 White Blood Count 8.1 x10^3/uL (4.0-11.0) Red Blood Count 4.56 x10^6/uL (4.30-5.70) Hemoglobin 13.4 g/dL (13.0-17.5) Hematocrit 39.8 % (39.0-53.0) Mean Corpuscular Volume 87 fL (79-100) Mean Corpuscular Hemoglobin 29 pg (25-35) Mean Corpuscular Hemoglobin Concent 34 g/dL (31-37) Red Cell Distribution Width 14.9 % (11.5-14.5) Platelet Count 343 x10^3/uL (140-400) Neutrophils (%) (Auto) 91 % (31-73) Lymphocytes (%) (Auto) 6 % (24-48) Monocytes (%) (Auto) 3 % (0-9) Eosinophils (%) (Auto) 0 % (0-3) Basophils (%) (Auto) 0 % (0-3) Neutrophils # (Auto) 7.3 x10^3/uL (1.8-7.7) Lymphocytes # (Auto) 0.5 x10^3/uL (1.0-4.8) Monocytes # (Auto) 0.3 x10^3/uL (0.0-1.1) Eosinophils # (Auto) 0.0 x10^3/uL (0.0-0.7) Basophils # (Auto) 0.0 x10^3/uL (0.0-0.2) Sodium Level 140 mmol/L (136-145) Potassium Level 4.5 mmol/L (3.5-5.1) Chloride Level 104 mmol/L (98-107) Carbon Dioxide Level 26 mmol/L (21-32) Anion Gap 10 (6-14) Blood Urea Nitrogen 18 mg/dL (8-26) Creatinine 0.9 mg/dL (0.7-1.3) Estimated GFR (Cockcroft-Gault) 98.5 BUN/Creatinine Ratio 20 (6-20) Glucose Level 121 mg/dL (70-99) Calcium Level 9.2 mg/dL (8.5-10.1) Total Bilirubin 0.3 mg/dL (0.2-1.0) Aspartate Amino Transf (AST/SGOT) 36 U/L (15-37) Alanine Aminotransferase (ALT/SGPT) 59 U/L (16-63) Alkaline Phosphatase 116 U/L (46-116) Creatine Kinase 234 U/L (39-308) Total Protein 7.2 g/dL (6.4-8.2) Albumin 2.3 g/dL (3.4-5.0) Albumin/Globulin Ratio 0.5 (1.0-1.7) Microbiology 03/24/20 Blood Culture - Final, Complete NO GROWTH AFTER 5 DAYS Medications Current Medications Ondansetron HCl (Zofran) 4 mg PRN Q8HRS PRN IV NAUSEA/VOMITING; Start 03/24/20 at 14:45; Stop 03/25/20 at 14:44; Status DC Acetaminophen (Tylenol) 650 mg PRN Q4HRS PRN PO FEVER > 100.3'F; Start 03/24/20 at 14:45; Stop 03/25/20 at 14:44; Status DC Potassium Chloride (Klor-Con) 40 meq 1X ONCE PO Last administered on 03/24/20at 16:06; Start 03/24/20 at 14:45; Stop 03/24/20 at 14:49; Status DC Potassium Chloride (Klor-Con) 40 meq 1X PRN PRN PO SEE COMMENTS; Start 03/24/20 at 19:15 Potassium Bicarbonate (Potassium Effervescent Tablet) 40 meq 1X PRN PRN FT SEE COMMENTS; Start 03/24/20 at 19:15 Acetaminophen/ Hydrocodone Bitart (Lortab 5/325) 1 tab PRN Q4HRS PRN PO MILD PAIN 1-3 Last administered on 03/28/20at 20:47; Start 03/24/20 at 19:15 Docusate Sodium (Colace) 100 mg BID PO Last administered on 03/30/20at 08:08; Start 03/24/20 at 21:00 Heparin Sodium (Porcine) (Heparin Sodium) 5,000 unit Q12HR SQ Last administered on 03/27/20at 22:05; Start 03/24/20 at 21:00; Stop 03/28/20 at 07:04; Status DC Potassium Chloride (Klor-Con) 40 meq 1X ONCE PO Last administered on 03/24/20at 22:54; Start 03/24/20 at 19:45; Stop 03/24/20 at 19:46; Status DC Acetaminophen/ Codeine Phosphate (Tylenol #3) 2 tab PRN Q6HRS PRN PO MODERATE PAIN 4-6 Last administered on 03/29/20at 21:06; Start 03/24/20 at 23:45 Amlodipine Besylate (Norvasc) 10 mg DAILY PO Last administered on 03/30/20at 08:09; Start 03/25/20 at 09:00 Clonidine HCl (Catapres) 0.2 mg QHS PO Last administered on 03/29/20at 21:07; Start 03/25/20 at 00:00 Cyclobenzaprine HCl (Flexeril) 10 mg PRN TID PRN PO MUSCLE PAIN Last administered on 03/30/20at 00:12; Start 03/24/20 at 23:45 Furosemide (Lasix) 40 mg DAILY PO Last administered on 03/30/20at 08:08; Start 03/25/20 at 09:00 Potassium Chloride (Klor-Con) 20 meq DAILY PO Last administered on 03/30/20at 08:08; Start 03/25/20 at 09:00 Trimethoprim/ Sulfamethoxazole (Bactrim Ds) 1 tab BID PO Last administered on 03/27/20at 22:01; Start 03/25/20 at 09:00; Stop 03/28/20 at 07:01; Status DC Lactobacillus Rhamnosus (Culturelle) 1 cap BID PO ; Start 03/26/20 at 21:00; Status Cancel Dexamethasone Sodium Phosphate (Decadron) 4 mg Q6H IV ; Start 03/27/20 at 16:30; Stop 03/27/20 at 16:29; Status DC Dexamethasone Sodium Phosphate (Decadron) 4 mg Q6H IVP ; Start 03/27/20 at 16:30; Stop 03/28/20 at 14:11; Status DC Dexamethasone (Decadron) 4 mg Q6HRS PO Last administered on 03/30/20at 12:14; Start 03/28/20 at 08:00 Bacitracin 97597 unit/Sodium Chloride 1,000 ml @ 1,000 mls/hr 1X ONCE IRR Last administered on 03/29/20at 14:24; Start 03/29/20 at 06:00; Stop 03/29/20 at 06:59; Status DC Cefazolin Sodium/ Dextrose 50 ml @ 100 mls/hr 1X PREOP PRN IV PRIOR TO PROC EDURE Last administered on 03/29/20at 13:45; Start 03/29/20 at 06:00; Stop 03/29/20 at 18:00; Status DC Gelatin (Gelfoam Size 100) 1 each STK-MED ONCE .ROUTE Last administered on 03/29/20at 14:24; Start 03/29/20 at 08:22; Stop 03/29/20 at 08:23; Status DC Bupivacaine HCl/ Epinephrine Bitart (Sensorcain-Epi 0.5%-1:459875 Mpf) 30 ml STK-MED ONCE .ROUTE Last administered on 03/29/20at 14:24; Start 03/29/20 at 08:23; Stop 03/29/20 at 08:23; Status DC Thrombin 20,000 unit STK-MED ONCE TP Last administered on 03/29/20at 14:24; Start 03/29/20 at 08:23; Stop 03/29/20 at 08:23; Status DC Ondansetron HCl (Zofran) 4 mg PRN Q6HRS PRN IV NAUSEA/VOMITING; Start 03/29/20 at 11:45; Stop 03/30/20 at 11:44; Status DC Fentanyl Citrate (Fentanyl 2ml Vial) 25 mcg PRN Q5MIN PRN IV MILD PAIN 1-3; Start 03/29/20 at 11:45; Stop 03/30/20 at 11:44; Status DC Fentanyl Citrate (Fentanyl 2ml Vial) 50 mcg PRN Q5MIN PRN IV MODERATE TO SEVERE PAIN; Start 03/29/20 at 11:45; Stop 03/30/20 at 11:44; Status DC Morphine Sulfate (Morphine Sulfate) 1 mg PRN Q10MIN PRN IV SEVERE PAIN 7-10; Start 03/29/20 at 11:45; Stop 03/30/20 at 11:44; Status DC Ringer's Solution 1,000 ml @ 30 mls/hr Q24H IV ; Start 03/29/20 at 11:38; Stop 03/29/20 at 23:37; Status DC Lidocaine HCl (Xylocaine-Mpf 1% 2ml Vial) 2 ml PRN 1X PRN ID PRIOR TO IV START; Start 03/29/20 at 11:45; Stop 03/30/20 at 11:44; Status DC Hydromorphone HCl (Dilaudid) 0.5 mg PRN Q10MIN PRN IV SEV PAIN, Second choice; Start 03/29/20 at 11:45; Stop 03/30/20 at 11:44; Status DC Prochlorperazine Edisylate (Compazine) 5 mg PACU PRN PRN IV NAUSEA, MRX1; Start 03/29/20 at 11:45; Stop 03/30/20 at 11:44; Status DC Propofol (Diprivan) 200 mg STK-MED ONCE IV ; Start 03/29/20 at 11:59; Stop 03/29/20 at 12:00; Status DC Lidocaine HCl (Lidocaine Pf 2% Vial) 5 ml STK-MED ONCE .ROUTE ; Start 03/29/20 at 11:59; Stop 03/29/20 at 12:00; Status DC Propofol 50 ml @ As Directed STK-MED ONCE IV ; Start 03/29/20 at 11:59; Stop 03/29/20 at 12:00; Status DC Fentanyl Citrate (Fentanyl 2ml Vial) 100 mcg STK-MED ONCE .ROUTE ; Start 03/29/20 at 12:00; Stop 03/29/20 at 12:01; Status DC Succinylcholine Chloride (Anectine) 200 mg STK-MED ONCE .ROUTE ; Start 03/29/20 at 12:00; Stop 03/29/20 at 12:01; Status DC Rocuronium [place] (Zemuron) 50 mg STK-MED ONCE .ROUTE ; Start 03/29/20 at 12:00; Stop 03/29/20 at 12:01; Status DC Remifentanil HCl (Ultiva) 2 mg STK-MED ONCE IV ; Start 03/29/20 at 12:01; Stop 03/29/20 at 12:01; Status DC Phenylephrine HCl (Keanu-Synephrine Inj) 10 mg STK-MED ONCE .ROUTE ; Start 03/29/20 at 13:06; Stop 03/29/20 at 13:06; Status DC Propofol 50 ml @ As Directed STK-MED ONCE IV ; Start 03/29/20 at 13:58; Stop 03/29/20 at 13:58; Status DC Glycopyrrolate (Robinul) 1 mg STK-MED ONCE .ROUTE ; Start 03/29/20 at 14:09; Stop 03/29/20 at 14:10; Status DC Propofol 50 ml @ As Directed STK-MED ONCE IV ; Start 03/29/20 at 15:12; Stop 03/29/20 at 15:13; Status DC Remifentanil HCl (Ultiva) 1 mg STK-MED ONCE IV ; Start 03/29/20 at 15:22; Stop 03/29/20 at 15:22; Status DC Desflurane (Suprane) 90 ml STK-MED ONCE IH ; Start 03/29/20 at 16:33; Stop 03/29/20 at 16:34; Status DC Fentanyl Citrate (Fentanyl 2ml Vial) 50 mcg PRN Q2HR PRN IVP PAIN; Start 03/29/20 at 17:00 Active Scripts Active Decadron (Dexamethasone) 4 Mg Tablet 4 Mg PO Q6HRS 3 Days Konsyl Formula-D Fiber Powder (Psyllium Husk (with Dextrose)) 397 Gm Powder 397 Gm PO DAILY 30 Days Acetaminophen-Cod #3 Tablet (Acetaminophen/Codeine Phosphate) 1 Each Tablet 2 Tab PO PRN Q6HRS PRN 6 Days Reported Cyclobenzaprine Hcl 10 Mg Tablet 10 Mg PO PRN TID PRN Klor-Con M20 (Potassium Chloride) 20 Meq Tab.er.prt 20 Meq PO DAILY Amlodipine Besylate 10 Mg Tablet 10 Mg PO DAILY Clonidine Hcl 0.2 Mg Tablet 1 Tab PO QHS Vitals/I & O Vital Sign - Last 24 Hours 03/29/20 03/29/20 03/29/20 03/29/20 16:52 16:52 17:05 17:20 Temp 97.2 97.2 97.2 97.2 97.2 97.2 Pulse 92 90 90 Resp 18 18 20 B/P (MAP) 159/84 168/85 150/76 Pulse Ox 100 98 97 O2 Delivery Simple Mask Mask Nasal Cannula Nasal Cannula O2 Flow Rate 8 8 2 2 03/29/20 03/29/20 03/29/20 03/29/20 17:40 17:45 18:00 18:15 Temp 97.5 97.5 Pulse 90 Resp 20 B/P (MAP) 138/87 (104) 140/80 (100) 139/77 (97) Pulse Ox 94 O2 Delivery Nasal Cannula Nasal Cannula Nasal Cannula Nasal Cannula O2 Flow Rate 2 2.0 03/29/20 03/29/20 03/29/20 03/29/20 18:30 19:30 20:00 20:00 Temp 97.3 97.7 97.3 97.7 Pulse 88 89 91 Resp 20 16 18 B/P (MAP) 148/88 (108) 146/90 (108) 133/86 (102) Pulse Ox 97 100 99 O2 Delivery Nasal Cannula Nasal Cannula Nasal Cannula Nasal Cannula O2 Flow Rate 2.0 2.0 2.0 2.0 03/29/20 03/29/20 03/29/20 03/29/20 21:00 21:06 21:07 22:00 Temp 98.4 98.4 Pulse 92 82 93 Resp 18 20 16 B/P (MAP) 139/88 (105) 139/88 140/87 (104) Pulse Ox 94 95 O2 Delivery Nasal Cannula Nasal Cannula Nasal Cannula O2 Flow Rate 2.0 2.0 2.0 03/29/20 03/30/20 03/30/20 03/30/20 22:10 03:05 06:10 08:09 Temp 97.3 97.8 97.3 97.8 Pulse 77 75 84 Resp 20 16 16 B/P (MAP) 140/86 (104) 150/94 (112) 128/85 Pulse Ox 95 97 O2 Delivery Nasal Cannula Nasal Cannula O2 Flow Rate 2.0 2.0 03/30/20 11:11 Temp 97.5 97.5 Pulse 80 Resp 20 B/P (MAP) 131/78 (95) Pulse Ox 96 O2 Delivery Room Air Intake and Output 03/29/20 03/29/20 03/30/20 15:00 23:00 07:00 Intake Total 1050 ml 600 ml Output Total 20 ml Balance 1030 ml 600 ml Justicifation of Admission Dx: Justifications for Admission: Justification of Admission Dx: Yes DHARA PERRY MD Mar 30, 2020 12:25
--- NOTE | 2020-03-30 14:59 | PDOC ---
PROGRESS NOTES Date of Service DATE: 03/30/20 TIME: 14:53 Subjective Subjective POD #1 s/p ACDF C6-7 denies pain ate breakfast without difficulty feels that left side is slightly stronger was up in chair dressing C,D, I, flat soft collar on voice clear [place] hose plan for dc to [facility] tomorrow Objective Objective Vital Signs Date Time Temp Pulse Resp B/P (MAP) Pulse Ox O2 Delivery O2 Flow Rate FiO2 03/30/20 11:11 97.5 80 20 131/78 (95) 96 Room Air 97.5 03/30/20 06:10 2.0 Intake and Output 03/30/20 07:00 Intake Total 1650 ml Output Total 20 ml Balance 1630 ml Intake Oral 600 ml IV Total 1050 ml Estimated Blood Loss 20 ml # Voids 2 Assessment Assessment Problems Medical Problems: (1) Fall Status: Acute (2) Hypokalemia Status: Acute (3) Weakness Status: Acute Comment Review of Relevant I have reviewed the following items yessenia (where applicable) has been applied. Labs Laboratory Tests Test 03/29/20 09:38 White Blood Count 8.1 x10^3/uL (4.0-11.0) Red Blood Count 4.56 x10^6/uL (4.30-5.70) Hemoglobin 13.4 g/dL (13.0-17.5) Hematocrit 39.8 % (39.0-53.0) Mean Corpuscular Volume 87 fL (79-100) Mean Corpuscular Hemoglobin 29 pg (25-35) Mean Corpuscular Hemoglobin Concent 34 g/dL (31-37) Red Cell Distribution Width 14.9 % (11.5-14.5) Platelet Count 343 x10^3/uL (140-400) Neutrophils (%) (Auto) 91 % (31-73) Lymphocytes (%) (Auto) 6 % (24-48) Monocytes (%) (Auto) 3 % (0-9) Eosinophils (%) (Auto) 0 % (0-3) Basophils (%) (Auto) 0 % (0-3) Neutrophils # (Auto) 7.3 x10^3/uL (1.8-7.7) Lymphocytes # (Auto) 0.5 x10^3/uL (1.0-4.8) Monocytes # (Auto) 0.3 x10^3/uL (0.0-1.1) Eosinophils # (Auto) 0.0 x10^3/uL (0.0-0.7) Basophils # (Auto) 0.0 x10^3/uL (0.0-0.2) Sodium Level 140 mmol/L (136-145) Potassium Level 4.5 mmol/L (3.5-5.1) Chloride Level 104 mmol/L (98-107) Carbon Dioxide Level 26 mmol/L (21-32) Anion Gap 10 (6-14) Blood Urea Nitrogen 18 mg/dL (8-26) Creatinine 0.9 mg/dL (0.7-1.3) Estimated GFR (Cockcroft-Gault) 98.5 BUN/Creatinine Ratio 20 (6-20) Glucose Level 121 mg/dL (70-99) Calcium Level 9.2 mg/dL (8.5-10.1) Total Bilirubin 0.3 mg/dL (0.2-1.0) Aspartate Amino Transf (AST/SGOT) 36 U/L (15-37) Alanine Aminotransferase (ALT/SGPT) 59 U/L (16-63) Alkaline Phosphatase 116 U/L (46-116) Creatine Kinase 234 U/L (39-308) Total Protein 7.2 g/dL (6.4-8.2) Albumin 2.3 g/dL (3.4-5.0) Albumin/Globulin Ratio 0.5 (1.0-1.7) Microbiology 03/24/20 Blood Culture - Final, Complete NO GROWTH AFTER 5 DAYS Medications Current Medications Ondansetron HCl (Zofran) 4 mg PRN Q8HRS PRN IV NAUSEA/VOMITING; Start 03/24/20 at 14:45; Stop 03/25/20 at 14:44; Status DC Acetaminophen (Tylenol) 650 mg PRN Q4HRS PRN PO FEVER > 100.3'F; Start 03/24/20 at 14:45; Stop 03/25/20 at 14:44; Status DC Potassium Chloride (Klor-Con) 40 meq 1X ONCE PO Last administered on 03/24/20at 16:06; Start 03/24/20 at 14:45; Stop 03/24/20 at 14:49; Status DC Potassium Chloride (Klor-Con) 40 meq 1X PRN PRN PO SEE COMMENTS; Start 03/24/20 at 19:15 Potassium Bicarbonate (Potassium Effervescent Tablet) 40 meq 1X PRN PRN FT SEE COMMENTS; Start 03/24/20 at 19:15 Acetaminophen/ Hydrocodone Bitart (Lortab 5/325) 1 tab PRN Q4HRS PRN PO MILD PAIN 1-3 Last administered on 03/28/20at 20:47; Start 03/24/20 at 19:15 Docusate Sodium (Colace) 100 mg BID PO Last administered on 03/30/20 08:08; Start 03/24/20 at 21:00 Heparin Sodium (Porcine) (Heparin Sodium) 5,000 unit Q12HR SQ Last administered on 03/27/20at 22:05; Start 03/24/20 at 21:00; Stop 03/28/20 at 07:04; Status DC Potassium Chloride (Klor-Con) 40 meq 1X ONCE PO Last administered on 03/24/20at 22:54; Start 03/24/20 at 19:45; Stop 03/24/20 at 19:46; Status DC Acetaminophen/ Codeine Phosphate (Tylenol #3) 2 tab PRN Q6HRS PRN PO MODERATE PAIN 4-6 Last administered on 03/29/20 21:06; Start 03/24/20 at 23:45 Amlodipine Besylate (Norvasc) 10 mg DAILY PO Last administered on 03/30/20 08:09; Start 03/25/20 at 09:00 Clonidine HCl (Catapres) 0.2 mg QHS PO Last administered on 03/29/20 21:07; Start 03/25/20 at 00:00 Cyclobenzaprine HCl (Flexeril) 10 mg PRN TID PRN PO MUSCLE PAIN Last administered on 03/30/20at 00:12; Start 03/24/20 at 23:45 Furosemide (Lasix) 40 mg DAILY PO Last administered on 03/30/20 08:08; Start 03/25/20 at 09:00 Potassium Chloride (Klor-Con) 20 meq DAILY PO Last administered on 03/30/20 08:08; Start 03/25/20 at 09:00 Trimethoprim/ Sulfamethoxazole (Bactrim Ds) 1 tab BID PO Last administered on 8/31/20at 22:01; Start 03/25/20 at 09:00; Stop 03/28/20 at 07:01; Status DC Lactobacillus Rhamnosus (Culturelle) 1 cap BID PO ; Start 03/26/20 at 21:00; Status Cancel Dexamethasone Sodium Phosphate (Decadron) 4 mg Q6H IV ; Start 03/27/20 at 16:30; Stop 03/27/20 at 16:29; Status DC Dexamethasone Sodium Phosphate (Decadron) 4 mg Q6H IVP ; Start 03/27/20 at 16:30; Stop 03/28/20 at 14:11; Status DC Dexamethasone (Decadron) 4 mg Q6HRS PO Last administered on 03/30/20at 12:14; Start 03/28/20 at 08:00; Stop 03/30/20 at 12:29; Status DC Bacitracin 88478 unit/Sodium Chloride 1,000 ml @ 1,000 mls/hr 1X ONCE IRR Last administered on 03/29/20at 14:24; Start 03/29/20 at 06:00; Stop 03/29/20 at 06:59; Status DC Cefazolin Sodium/ Dextrose 50 ml @ 100 mls/hr 1X PREOP PRN IV PRIOR TO PROCEDURE Last administered on 03/29/20at 13:45; Start 03/29/20 at 06:00; Stop 03/29/20 at 18:00; Status DC Gelatin (Gelfoam Size 100) 1 each STK-MED ONCE .ROUTE Last administered on 03/29/20at 14:24; Start 03/29/20 at 08:22; Stop 03/29/20 at 08:23; Status DC Bupivacaine HCl/ Epinephrine Bitart (Sensorcain-Epi 0.5%-1:740739 Mpf) 30 ml STK-MED ONCE .ROUTE Last administered on 03/29/20at 14:24; Start 03/29/20 at 08:23; Stop 03/29/20 at 08:23; Status DC Thrombin 20,000 unit STK-MED ONCE TP Last administered on 03/29/20at 14:24; Start 03/29/20 at 08:23; Stop 03/29/20 at 08:23; Status DC Ondansetron HCl (Zofran) 4 mg PRN Q6HRS PRN IV NAUSEA/VOMITING; Start 03/29/20 at 11:45; Stop 03/30/20 at 11:44; Status DC Fentanyl Citrate (Fentanyl 2ml Vial) 25 mcg PRN Q5MIN PRN IV MILD PAIN 1-3; Start 03/29/20 at 11:45; Stop 03/30/20 at 11:44; Status DC Fentanyl Citrate (Fentanyl 2ml Vial) 50 mcg PRN Q5MIN PRN IV MODERATE TO SEVERE PAIN; Start 03/29/20 at 11:45; Stop 03/30/20 at 11:44; Status DC Morphine Sulfate (Morphine Sulfate) 1 mg PRN Q10MIN PRN IV SEVERE PAIN 7-10; Start 03/29/20 at 11:45; Stop 03/30/20 at 11:44; Status DC Ringer's Solution 1,000 ml @ 30 mls/hr Q24H IV ; Start 03/29/20 at 11:38; Stop 03/29/20 at 23:37; Status DC Lidocaine HCl (Xylocaine-Mpf 1% 2ml Vial) 2 ml PRN 1X PRN ID PRIOR TO IV START; Start 03/29/20 at 11:45; Stop 03/30/20 at 11:44; Status DC Hydromorphone HCl (Dilaudid) 0.5 mg PRN Q10MIN PRN IV SEV PAIN, Second choice; Start 03/29/20 at 11:45; Stop 03/30/20 at 11:44; Status DC Prochlorperazine Edisylate (Compazine) 5 mg PACU PRN PRN IV NAUSEA, MRX1; Start 03/29/20 at 11:45; Stop 03/30/20 at 11:44; Status DC Propofol (Diprivan) 200 mg STK-MED ONCE IV ; Start 03/29/20 at 11:59; Stop 03/29/20 at 12:00; Status DC Lidocaine HCl (Lidocaine Pf 2% Vial) 5 ml STK-MED ONCE .ROUTE ; Start 03/29/20 at 11:59; Stop 03/29/20 at 12:00; Status DC Propofol 50 ml @ As Directed STK-MED ONCE IV ; Start 03/29/20 at 11:59; Stop 03/29/20 at 12:00; Status DC Fentanyl Citrate (Fentanyl 2ml Vial) 100 mcg STK-MED ONCE .ROUTE ; Start 03/29/20 at 12:00; Stop 03/29/20 at 12:01; Status DC Succinylcholine Chloride (Anectine) 200 mg STK-MED ONCE .ROUTE ; Start 03/29/20 at 12:00; Stop 03/29/20 at 12:01; Status DC Rocuronium [place] (Zemuron) 50 mg STK-MED ONCE .ROUTE ; Start 03/29/20 at 12:00; Stop 03/29/20 at 12:01; Status DC Remifentanil HCl (Ultiva) 2 mg STK-MED ONCE IV ; Start 03/29/20 at 12:01; Stop 03/29/20 at 12:01; Status DC Phenylephrine HCl (Keanu-Synephrine Inj) 10 mg STK-MED ONCE .ROUTE ; Start 03/29/20 at 13:06; Stop 03/29/20 at 13:06; Status DC Propofol 50 ml @ As Directed STK-MED ONCE IV ; Start 03/29/20 at 13:58; Stop 03/29/20 at 13:58; Status DC Glycopyrrolate (Robinul) 1 mg STK-MED ONCE .ROUTE ; Start 03/29/20 at 14:09; Stop 03/29/20 at 14:10; Status DC Propofol 50 ml @ As Directed STK-MED ONCE IV ; Start 03/29/20 at 15:12; Stop 03/29/20 at 15:13; Status DC Remifentanil HCl (Ultiva) 1 mg STK-MED ONCE IV ; Start 03/29/20 at 15:22; Stop 03/29/20 at 15:22; Status DC Desflurane (Suprane) 90 ml STK-MED ONCE IH ; Start 03/29/20 at 16:33; Stop 03/29/20 at 16:34; Status DC Fentanyl Citrate (Fentanyl 2ml Vial) 50 mcg PRN Q2HR PRN IVP PAIN; Start 03/29/20 at 17:00 Dexamethasone (Decadron) 4 mg Q12H PO ; Start 03/31/20 at 00:00; Stop 04/01/20 at 00:00 Active Scripts Active Decadron (Dexamethasone) 4 Mg Tablet 4 Mg PO Q6HRS 3 Days Konsyl Formula-D Fiber Powder (Psyllium Husk (with Dextrose)) 397 Gm Powder 397 Gm PO DAILY 30 Days Acetaminophen-Cod #3 Tablet (Acetaminophen/Codeine Phosphate) 1 Each Tablet 2 Tab PO PRN Q6HRS PRN 6 Days Reported Cyclobenzaprine Hcl 10 Mg Tablet 10 Mg PO PRN TID PRN Klor-Con M20 (Potassium Chloride) 20 Meq Tab.er.prt 20 Meq PO DAILY Amlodipine Besylate 10 Mg Tablet 10 Mg PO DAILY Clonidine Hcl 0.2 Mg Tablet 1 Tab PO QHS Vitals/I & O Vital Sign - Last 24 Hours 03/29/20 03/29/20 03/29/20 03/29/20 16:52 16:52 17:05 17:20 Temp 97.2 97.2 97.2 97.2 97.2 97.2 Pulse 92 90 90 Resp 18 18 20 B/P (MAP) 159/84 168/85 150/76 Pulse Ox 100 98 97 O2 Delivery Simple Mask Mask Nasal Cannula Nasal Cannula O2 Flow Rate 8 8 2 2 03/29/20 03/29/20 03/29/20 03/29/20 17:40 17:45 18:00 18:15 Temp 97.5 97.5 Pulse 90 Resp 20 B/P (MAP) 138/87 (104) 140/80 (100) 139/77 (97) Pulse Ox 94 O2 Delivery Nasal Cannula Nasal Cannula Nasal Cannula Nasal Cannula O2 Flow Rate 2 2.0 03/29/20 03/29/20 03/29/20 03/29/20 18:30 19:30 20:00 20:00 Temp 97.3 97.7 97.3 97.7 Pulse 88 89 91 Resp 20 16 18 B/P (MAP) 148/88 (108) 146/90 (108) 133/86 (102) Pulse Ox 97 100 99 O2 Delivery Nasal Cannula Nasal Cannula Nasal Cannula Nasal Cannula O2 Flow Rate 2.0 2.0 2.0 2.0 03/29/20 03/29/20 03/29/20 03/29/20 21:00 21:06 21:07 22:00 Temp 98.4 98.4 Pulse 92 82 93 Resp 18 20 16 B/P (MAP) 139/88 (105) 139/88 140/87 (104) Pulse Ox 94 95 O2 Delivery Nasal Cannula Nasal Cannula Nasal Cannula O2 Flow Rate 2.0 2.0 2.0 03/29/20 03/30/20 03/30/20 03/30/20 22:10 03:05 06:10 08:09 Temp 97.3 97.8 97.3 97.8 Pulse 77 75 84 Resp 20 16 16 B/P (MAP) 140/86 (104) 150/94 (112) 128/85 Pulse Ox 95 97 O2 Delivery Nasal Cannula Nasal Cannula O2 Flow Rate 2.0 2.0 03/30/20 11:11 Temp 97.5 97.5 Pulse 80 Resp 20 B/P (MAP) 131/78 (95) Pulse Ox 96 O2 Delivery Room Air Intake and Output 03/29/20 03/29/20 03/30/20 15:00 23:00 07:00 Intake Total 1050 ml 600 ml Output Total 20 ml Balance 1030 ml 600 ml Justifications for Admission Other Justification [employer] Mar 30, 2020 14:59
[2020-03-30 20:08] LABS: ANA INTERP Negative (.)
[2020-03-30] MEDS: cloNIDine HCL 0.2 MG TABLET PO SCH (21:51)
[2020-03-30] MEDS: HYDROcodone/APAP 5/325MG 1 TAB TABLET PO PRN (21:52)
[2020-03-31 02:45] VITALS: BP 142/88
[2020-03-31 05:52] VITALS: BP 139/84
[2020-03-31 06:28] LABS: BASO % 0 % (0-3); EOS % 0 % (0-3); HEMATOCRIT 38.8 % (39.0-53.0); HEMOGLOBIN 12.9 g/dL (13.0-17.5); LYMPH # 0.8 x10^3/uL (1.0-4.8); LYMPH % 9 % (24-48); MEAN CORPUSCULAR HEMOGLOBIN 29 pg (25-35); MEAN CORPUSCULAR HGB CONC 33 g/dL (31-37); MEAN CORPUSCULAR VOLUME 88 fL (79-100); MONO # 0.7 x10^3/uL (0.0-1.1); MONO % 8 % (0-9); NEUT # 7.2 x10^3/uL (1.8-7.7); NEUT % 83 % (31-73); PLATELET COUNT 407 x10^3/uL (140-400); RED BLOOD COUNT 4.41 x10^6/uL (4.30-5.70); RED CELL DISTRIBUTION WIDTH 14.9 % (11.5-14.5); WHITE BLOOD COUNT 8.8 x10^3/uL (4.0-11.0)
[2020-03-31 06:39] LABS: C-REACTIVE PROTEIN 81.4 mg/L (0-3.3); CALCIUM 8.2 mg/dL (8.5-10.1); GFR 87.2; POTASSIUM 4.2 mmol/L (3.5-5.1)
--- NOTE | 2020-03-31 07:34 | PDOC ---
[employer] PROGRESS NOTE Date of Service DOS: DATE: 03/31/20 TIME: 07:33 Chief Complaint Chief Complaint Cervical spinal stenosis Unable to walk Bilateral leg weakness, arm weakness of unclear etiology. L>R History of prostate and bladder cancer Chronic Neck pain Hypokalemia Severe protein calorie malnutrition Plan: Pain control PT OT ADA diet Full code D/w daughter, Berkley, Acute rehab Decadron 3 days on d/c F/u neurosurgery History of Present Illness History of Present Illness Mr Smith is a 79 yo male with PMHx of prostate cancer, who presents with complaint of worsening weakness for the past week prior to admission. States his weakness is mostly in his legs, with associated throbbing neck pain, 8/10, and left hand numbness. His symptoms started one week ago with a "crook" in his neck. He was seen at [facility] and prescribed a muscle relaxer and pain medication without improvement. His symptoms progressed to the point of suffering a fall at home, which prompted his ED visit. He denies any prior injury to his neck.Denies any fever or unintentional weight-loss. 03/25: Patient continues to have neck pain and associated left upper extremity weakness and bilateral lower extremity weakness. No bladder or bowel incontinence. 03/26: No acute changes in neuro exam. Neurology consulted. MRI ordered. 03/27: Afebrile. He is unable to lift his left leg against gravity today his left arm is weak as well. Neck pain improved. MRI brain negative for CVA. MRI cervical spine There is central canal stenosis about 7 mm at C6-7. 03/28: Still with left leg weakness, started on decadron. CRP 324. No SOB or CP. D/w daughter 03/29: To OR for anterior cervical microdiskectomy, C6-C7, anterior cervical interbody fusion, C6-C7; anterior cervical plate, C6-C7. With: EMG monitoring, SSEP monitoring, NIMS monitoring, motor evoked potentials, fluoroscopy, microscopic dissection. 03/30: Stronger today. S/p ACDF 03/29 in the afternoon. No CP or SOB. Afebrile, no overnight events. CRP trended down to 81.4. Plan for discharge to [facility] rehabilitation later today. Vitals/I&O Vitals/I&O: Vital Signs Date Time Temp Pulse Resp B/P (MAP) Pulse Ox O2 Delivery O2 Flow Rate FiO2 03/31/20 07:26 Room Air 03/31/20 05:52 98.0 70 18 139/84 (102) 93 98.0 I & O 03/30/20 03/30/20 03/31/20 15:00 23:00 07:00 Intake Total 480 ml 240 ml 400 ml Balance 480 ml 240 ml 400 ml Physical Exam Physical Exam: General: Alert, Oriented X3, Cooperative, No acute distress HEENT: PERRLA Lungs: Clear to auscultation, Normal air movement Heart: RRR, no murmurs Cardiovascular: S1, S2 Abdomen: Normal bowel sounds, No tenderness Extremities: 2+ pitting edema bilateral legs Skin: No rashes, No breakdown Neuro: Strength 2/5 LUE, 5/5 in RUE. Bilateral LE weakness Psych/Mental Status: Mental status NL, Mood NL General: Alert, Oriented X3, Cooperative, No acute distress Abdomen: Normal bowel sounds, No tenderness Extremities: No clubbing, No cyanosis, Other (2+ pitting edema bilateral legs) Skin: No rashes, No breakdown Labs Labs: Laboratory Tests Test 03/31/20 05:15 White Blood Count 8.8 x10^3/uL (4.0-11.0) Red Blood Count 4.41 x10^6/uL (4.30-5.70) Hemoglobin 12.9 g/dL (13.0-17.5) Hematocrit 38.8 % (39.0-53.0) Mean Corpuscular Volume 88 fL (79-100) Mean Corpuscular Hemoglobin 29 pg (25-35) Mean Corpuscular Hemoglobin Concent 33 g/dL (31-37) Red Cell Distribution Width 14.9 % (11.5-14.5) Platelet Count 407 x10^3/uL (140-400) Neutrophils (%) (Auto) 83 % (31-73) Lymphocytes (%) (Auto) 9 % (24-48) Monocytes (%) (Auto) 8 % (0-9) Eosinophils (%) (Auto) 0 % (0-3) Basophils (%) (Auto) 0 % (0-3) Neutrophils # (Auto) 7.2 x10^3/uL (1.8-7.7) Lymphocytes # (Auto) 0.8 x10^3/uL (1.0-4.8) Monocytes # (Auto) 0.7 x10^3/uL (0.0-1.1) Eosinophils # (Auto) 0.0 x10^3/uL (0.0-0.7) Basophils # (Auto) 0.0 x10^3/uL (0.0-0.2) Sodium Level 140 mmol/L (136-145) Potassium Level 4.2 mmol/L (3.5-5.1) Chloride Level 103 mmol/L (98-107) Carbon Dioxide Level 33 mmol/L (21-32) Anion Gap 4 (6-14) Blood Urea Nitrogen 21 mg/dL (8-26) Creatinine 1.0 mg/dL (0.7-1.3) Estimated GFR (Cockcroft-Gault) 87.2 Glucose Level 96 mg/dL (70-99) Calcium Level 8.2 mg/dL (8.5-10.1) C-Reactive Protein, Quantitative 81.4 mg/L (0-3.3) Assessment and Plan Assessmemt and Plan Problems Medical Problems: (1) Fall Status: Acute (2) Hypokalemia Status: Acute (3) Weakness Status: Acute Comment Review of Relevant I have reviewed the following items yessenia (where applicable) has been applied. Medications: Current Medications Medications (Trade) Dose Ordered Sig/Mono Route PRN Reason Start Time Stop Time Status Last Admin Dose Admin Dexamethasone (Decadron) 4 mg Q12H PO 03/31/20 00:00 04/01/20 00:00 03/30/20 23:32 Justifications for Admission Other Justification MINDY LOZA MD Mar 31, 2020 07:34
[2020-03-31] MEDS: POTASSIUM CHLORIDE 20 MEQ TABLET.ER. PO SCH (07:56)
[2020-03-31] MEDS: DOCUSATE SODIUM 100 MG CAPSULE. PO SCH (07:56)
[2020-03-31] MEDS: FUROSEMIDE 40 MG TABLET. PO SCH (07:56)
[2020-03-31] MEDS: amLODIPine BESYLATE 10 MG TABLET PO SCH (07:57)
[2020-03-31 08:00] VITALS: BP 147/95
--- NOTE | 2020-03-31 08:41 | PDOC ---
PROGRESS NOTES Date of Service DATE: 03/31/20 TIME: 08:40 Assessment Problems Medical Problems: (1) Fall Status: Acute (2) Hypokalemia Status: Acute (3) Weakness Status: Acute Status post, on 03/29, anterior cervical microdiskectomy, C6-C7, anterior cervical interbody fusion, C6-C7; anterior cervical plate, C6-C7. 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 Note that at baseline he gets around with a walker History of prostate and bladder cancer Elevated CRP, rest of laboratory studies negative Plan Taper Decadron Recheck CRP in a month Rehabilitation modalities DVT prophylaxis retirement unit Subjective denies pain, ready to go to [facility] Objective Vital Signs Date Time Temp Pulse Resp B/P (MAP) Pulse Ox O2 Delivery O2 Flow Rate FiO2 03/31/20 08:00 81 20 147/95 (112) Room Air 03/31/20 05:52 98.0 93 98.0 Intake and Output 03/31/20 07:00 Intake Total 1120 ml Balance 1120 ml Intake Oral 1120 ml # Voids 6 PHYSICAL EXAM Alert. Oriented to time, place and person. PERRL. EOMI. CN: no focal findings. Muscle tone: normal. Muscle strength: 3/5 DTR: 0-1+ Plantar reflex: flexor Gait: not examined in bed. Sensory exam: stocking loss. No cerebellar signs elicited. Review of Relevant I have reviewed the following items yessenia (where applicable) has been applied. Labs Laboratory Tests Test 03/29/20 09:38 03/31/20 05:15 White Blood Count 8.1 x10^3/uL (4.0-11.0) 8.8 x10^3/uL (4.0-11.0) Red Blood Count 4.56 x10^6/uL (4.30-5.70) 4.41 x10^6/uL (4.30-5.70) Hemoglobin 13.4 g/dL (13.0-17.5) 12.9 g/dL (13.0-17.5) Hematocrit 39.8 % (39.0-53.0) 38.8 % (39.0-53.0) Mean Corpuscular Volume 87 fL (79-100) 88 fL (79-100) Mean Corpuscular Hemoglobin 29 pg (25-35) 29 pg (25-35) Mean Corpuscular Hemoglobin Concent 34 g/dL (31-37) 33 g/dL (31-37) Red Cell Distribution Width 14.9 % (11.5-14.5) 14.9 % (11.5-14.5) Platelet Count 343 x10^3/uL (140-400) 407 x10^3/uL (140-400) Neutrophils (%) (Auto) 91 % (31-73) 83 % (31-73) Lymphocytes (%) (Auto) 6 % (24-48) 9 % (24-48) Monocytes (%) (Auto) 3 % (0-9) 8 % (0-9) Eosinophils (%) (Auto) 0 % (0-3) 0 % (0-3) Basophils (%) (Auto) 0 % (0-3) 0 % (0-3) Neutrophils # (Auto) 7.3 x10^3/uL (1.8-7.7) 7.2 x10^3/uL (1.8-7.7) Lymphocytes # (Auto) 0.5 x10^3/uL (1.0-4.8) 0.8 x10^3/uL (1.0-4.8) Monocytes # (Auto) 0.3 x10^3/uL (0.0-1.1) 0.7 x10^3/uL (0.0-1.1) Eosinophils # (Auto) 0.0 x10^3/uL (0.0-0.7) 0.0 x10^3/uL (0.0-0.7) Basophils # (Auto) 0.0 x10^3/uL (0.0-0.2) 0.0 x10^3/uL (0.0-0.2) Sodium Level 140 mmol/L (136-145) 140 mmol/L (136-145) Potassium Level 4.5 mmol/L (3.5-5.1) 4.2 mmol/L (3.5-5.1) Chloride Level 104 mmol/L (98-107) 103 mmol/L (98-107) Carbon Dioxide Level 26 mmol/L (21-32) 33 mmol/L (21-32) Anion Gap 10 (6-14) 4 (6-14) Blood Urea Nitrogen 18 mg/dL (8-26) 21 mg/dL (8-26) Creatinine 0.9 mg/dL (0.7-1.3) 1.0 mg/dL (0.7-1.3) Estimated GFR (Cockcroft-Gault) 98.5 87.2 BUN/Creatinine Ratio 20 (6-20) Glucose Level 121 mg/dL (70-99) 96 mg/dL (70-99) Calcium Level 9.2 mg/dL (8.5-10.1) 8.2 mg/dL (8.5-10.1) Total Bilirubin 0.3 mg/dL (0.2-1.0) Aspartate Amino Transf (AST/SGOT) 36 U/L (15-37) Alanine Aminotransferase (ALT/SGPT) 59 U/L (16-63) Alkaline Phosphatase 116 U/L (46-116) Creatine Kinase 234 U/L (39-308) Total Protein 7.2 g/dL (6.4-8.2) Albumin 2.3 g/dL (3.4-5.0) Albumin/Globulin Ratio 0.5 (1.0-1.7) C-Reactive Protein, Quantitative 81.4 mg/L (0-3.3) Laboratory Tests Test 03/31/20 05:15 White Blood Count 8.8 x10^3/uL (4.0-11.0) Red Blood Count 4.41 x10^6/uL (4.30-5.70) Hemoglobin 12.9 g/dL (13.0-17.5) Hematocrit 38.8 % (39.0-53.0) Mean Corpuscular Volume 88 fL (79-100) Mean Corpuscular Hemoglobin 29 pg (25-35) Mean Corpuscular Hemoglobin Concent 33 g/dL (31-37) Red Cell Distribution Width 14.9 % (11.5-14.5) Platelet Count 407 x10^3/uL (140-400) Neutrophils (%) (Auto) 83 % (31-73) Lymphocytes (%) (Auto) 9 % (24-48) Monocytes (%) (Auto) 8 % (0-9) Eosinophils (%) (Auto) 0 % (0-3) Basophils (%) (Auto) 0 % (0-3) Neutrophils # (Auto) 7.2 x10^3/uL (1.8-7.7) Lymphocytes # (Auto) 0.8 x10^3/uL (1.0-4.8) Monocytes # (Auto) 0.7 x10^3/uL (0.0-1.1) Eosinophils # (Auto) 0.0 x10^3/uL (0.0-0.7) Basophils # (Auto) 0.0 x10^3/uL (0.0-0.2) Sodium Level 140 mmol/L (136-145) Potassium Level 4.2 mmol/L (3.5-5.1) Chloride Level 103 mmol/L (98-107) Carbon Dioxide Level 33 mmol/L (21-32) Anion Gap 4 (6-14) Blood Urea Nitrogen 21 mg/dL (8-26) Creatinine 1.0 mg/dL (0.7-1.3) Estimated GFR (Cockcroft-Gault) 87.2 Glucose Level 96 mg/dL (70-99) Calcium Level 8.2 mg/dL (8.5-10.1) C-Reactive Protein, Quantitative 81.4 mg/L (0-3.3) Microbiology 03/24/20 Blood Culture - Final, Complete NO GROWTH AFTER 5 DAYS Medications Current Medications Ondansetron HCl (Zofran) 4 mg PRN Q8HRS PRN IV NAUSEA/VOMITING; Start 03/24/20 at 14:45; Stop 03/25/20 at 14:44; Status DC Acetaminophen (Tylenol) 650 mg PRN Q4HRS PRN PO FEVER > 100.3'F; Start 03/24/20 at 14:45; Stop 03/25/20 at 14:44; Status DC Potassium Chloride (Klor-Con) 40 meq 1X ONCE PO Last administered on 03/24/20at 16:06; Start 03/24/20 at 14:45; Stop 03/24/20 at 14:49; Status DC Potassium Chloride (Klor-Con) 40 meq 1X PRN PRN PO SEE COMMENTS; Start 03/24/20 at 19:15 Potassium Bicarbonate (Potassium Effervescent Tablet) 40 meq 1X PRN PRN FT SEE COMMENTS; Start 03/24/20 at 19:15 Acetaminophen/ Hydrocodone Bitart (Lortab 5/325) 1 tab PRN Q4HRS PRN PO MILD PAIN 1-3 Last administered on 03/30/20 21:52; Start 03/24/20 at 19:15 Docusate Sodium (Colace) 100 mg BID PO Last administered on 03/31/20 07:56; Start 03/24/20 at 21:00 Heparin Sodium (Porcine) (Heparin Sodium) 5,000 unit Q12HR SQ Last administered on 03/27/20at 22:05; Start 03/24/20 at 21:00; Stop 03/28/20 at 07:04; Status DC Potassium Chloride (Klor-Con) 40 meq 1X ONCE PO Last administered on 03/24/20at 22:54; Start 03/24/20 at 19:45; Stop 03/24/20 at 19:46; Status DC Acetaminophen/ Codeine Phosphate (Tylenol #3) 2 tab PRN Q6HRS PRN PO MODERATE PAIN 4-6 Last administered on 03/29/20 21:06; Start 03/24/20 at 23:45 Amlodipine Besylate (Norvasc) 10 mg DAILY PO Last administered on 03/31/20 07:57; Start 03/25/20 at 09:00 Clonidine HCl (Catapres) 0.2 mg QHS PO Last administered on 03/30/20 21:51; Start 03/25/20 at 00:00 Cyclobenzaprine HCl (Flexeril) 10 mg PRN TID PRN PO MUSCLE PAIN Last administered on 03/30/20at 00:12; Start 03/24/20 at 23:45 Furosemide (Lasix) 40 mg DAILY PO Last administered on 03/31/20 07:56; Start 03/25/20 at 09:00 Potassium Chloride (Klor-Con) 20 meq DAILY PO Last administered on 03/31/20 07:56; Start 03/25/20 at 09:00 Trimethoprim/ Sulfamethoxazole (Bactrim Ds) 1 tab BID PO Last administered on 03/27/20at 22:01; Start 03/25/20 at 09:00; Stop 03/28/20 at 07:01; Status DC Lactobacillus Rhamnosus (Culturelle) 1 cap BID PO ; Start 03/26/20 at 21:00; Status Cancel Dexamethasone Sodium Phosphate (Decadron) 4 mg Q6H IV ; Start 03/27/20 at 16:30; Stop 03/27/20 at 16:29; Status DC Dexamethasone Sodium Phosphate (Decadron) 4 mg Q6H IVP ; Start 03/27/20 at 16:30; Stop 03/28/20 at 14:11; Status DC Dexamethasone (Decadron) 4 mg Q6HRS PO Last administered on 03/30/20at 12:14; Start 03/28/20 at 08:00; Stop 03/30/20 at 12:29; Status DC Bacitracin 27222 unit/Sodium Chloride 1,000 ml @ 1,000 mls/hr 1X ONCE IRR Last administered on 03/29/20at 14:24; Start 03/29/20 at 06:00; Stop 03/29/20 at 06:59; Status DC Cefazolin Sodium/ Dextrose 50 ml @ 100 mls/hr 1X PREOP PRN IV PRIOR TO PROCEDURE Last administered on 03/29/20at 13:45; Start 03/29/20 at 06:00; Stop 03/29/20 at 18:00; Status DC Gelatin (Gelfoam Size 100) 1 each STK-MED ONCE .ROUTE Last administered on 03/29/20at 14:24; Start 03/29/20 at 08:22; Stop 03/29/20 at 08:23; Status DC Bupivacaine HCl/ Epinephrine Bitart (Sensorcain-Epi 0.5%-1:911207 Mpf) 30 ml STK-MED ONCE .ROUTE Last administered on 03/29/20at 14:24; Start 03/29/20 at 08:23; Stop 03/29/20 at 08:23; Status DC Thrombin 20,000 unit STK-MED ONCE TP Last administered on 03/29/20at 14:24; Start 03/29/20 at 08:23; Stop 03/29/20 at 08:23; Status DC Ondansetron HCl (Zofran) 4 mg PRN Q6HRS PRN IV NAUSEA/VOMITING; Start 03/29/20 at 11:45; Stop 03/30/20 at 11:44; Status DC Fentanyl Citrate (Fentanyl 2ml Vial) 25 mcg PRN Q5MIN PRN IV MILD PAIN 1-3; Start 03/29/20 at 11:45; Stop 03/30/20 at 11:44; Status DC Fentanyl Citrate (Fentanyl 2ml Vial) 50 mcg PRN Q5MIN PRN IV MODERATE TO SEVERE PAIN; Start 03/29/20 at 11:45; Stop 03/30/20 at 11:44; Status DC Morphine Sulfate (Morphine Sulfate) 1 mg PRN Q10MIN PRN IV SEVERE PAIN 7-10; Start 03/29/20 at 11:45; Stop 03/30/20 at 11:44; Status DC Ringer's Solution 1,000 ml @ 30 mls/hr Q24H IV ; Start 03/29/20 at 11:38; Stop 03/29/20 at 23:37; Status DC Lidocaine HCl (Xylocaine-Mpf 1% 2ml Vial) 2 ml PRN 1X PRN ID PRIOR TO IV START; Start 03/29/20 at 11:45; Stop 03/30/20 at 11:44; Status DC Hydromorphone HCl (Dilaudid) 0.5 mg PRN Q10MIN PRN IV SEV PAIN, Second choice; Start 03/29/20 at 11:45; Stop 03/30/20 at 11:44; Status DC Prochlorperazine Edisylate (Compazine) 5 mg PACU PRN PRN IV NAUSEA, MRX1; Start 03/29/20 at 11:45; Stop 03/30/20 at 11:44; Status DC Propofol (Diprivan) 200 mg STK-MED ONCE IV ; Start 03/29/20 at 11:59; Stop 03/29/20 at 12:00; Status DC Lidocaine HCl (Lidocaine Pf 2% Vial) 5 ml STK-MED ONCE .ROUTE ; Start 03/29/20 at 11:59; Stop 03/29/20 at 12:00; Status DC Propofol 50 ml @ As Directed STK-MED ONCE IV ; Start 03/29/20 at 11:59; Stop 03/29/20 at 12:00; Status DC Fentanyl Citrate (Fentanyl 2ml Vial) 100 mcg STK-MED ONCE .ROUTE ; Start 03/29/20 at 12:00; Stop 03/29/20 at 12:01; Status DC Succinylcholine Chloride (Anectine) 200 mg STK-MED ONCE .ROUTE ; Start 03/29/20 at 12:00; Stop 03/29/20 at 12:01; Status DC Rocuronium [place] (Zemuron) 50 mg STK-MED ONCE .ROUTE ; Start 03/29/20 at 12:00; Stop 03/29/20 at 12:01; Status DC Remifentanil HCl (Ultiva) 2 mg STK-MED ONCE IV ; Start 03/29/20 at 12:01; Stop 03/29/20 at 12:01; Status DC Phenylephrine HCl (Keanu-Synephrine Inj) 10 mg STK-MED ONCE .ROUTE ; Start 03/29/20 at 13:06; Stop 03/29/20 at 13:06; Status DC Propofol 50 ml @ As Directed STK-MED ONCE IV ; Start 03/29/20 at 13:58; Stop 03/29/20 at 13:58; Status DC Glycopyrrolate (Robinul) 1 mg STK-MED ONCE .ROUTE ; Start 03/29/20 at 14:09; Stop 03/29/20 at 14:10; Status DC Propofol 50 ml @ As Directed STK-MED ONCE IV ; Start 03/29/20 at 15:12; Stop 03/29/20 at 15:13; Status DC Remifentanil HCl (Ultiva) 1 mg STK-MED ONCE IV ; Start 03/29/20 at 15:22; Stop 03/29/20 at 15:22; Status DC Desflurane (Suprane) 90 ml STK-MED ONCE IH ; Start 03/29/20 at 16:33; Stop 03/29/20 at 16:34; Status DC Fentanyl Citrate (Fentanyl 2ml Vial) 50 mcg PRN Q2HR PRN IVP PAIN; Start at 17:00 Dexamethasone (Decadron) 4 mg Q12H PO Last administered on 03/30/20at 23:32; Start 03/31/20 at 00:00; Stop 04/01/20 at 00:00 Active Scripts Active Decadron (Dexamethasone) 4 Mg Tablet 4 Mg PO Q6HRS 3 Days Konsyl Formula-D Fiber Powder (Psyllium Husk (with Dextrose)) 397 Gm Powder 397 Gm PO DAILY 30 Days Acetaminophen-Cod #3 Tablet (Acetaminophen/Codeine Phosphate) 1 Each Tablet 2 Tab PO PRN Q6HRS PRN 6 Days Reported Cyclobenzaprine Hcl 10 Mg Tablet 10 Mg PO PRN TID PRN Klor-Con M20 (Potassium Chloride) 20 Meq Tab.er.prt 20 Meq PO DAILY Amlodipine Besylate 10 Mg Tablet 10 Mg PO DAILY Clonidine Hcl 0.2 Mg Tablet 1 Tab PO QHS Vitals/I & O Vital Sign - Last 24 Hours 03/30/20 03/30/20 03/30/20 03/30/20 11:11 15:03 18:36 19:45 Temp 97.5 98.1 98.0 97.5 98.1 98.0 Pulse 80 84 91 Resp 20 20 18 B/P (MAP) 131/78 (95) 150/90 (110) 138/84 (102) Pulse Ox 96 96 94 O2 Delivery Room Air Room Air Room Air Room Air 03/30/20 03/30/20 03/30/20 03/30/20 21:51 21:52 21:52 22:52 Temp 97.9 97.9 Pulse 85 85 Resp 16 16 B/P (MAP) 150/97 150/97 (114) Pulse Ox 93 93 O2 Delivery Room Air Room Air Room Air 03/30/20 03/31/20 03/31/20 03/31/20 23:36 02:45 05:52 07:26 Temp 98.3 97.8 98.0 98.3 97.8 98.0 Pulse 73 73 70 Resp 18 16 18 B/P (MAP) 129/85 (100) 142/88 (106) 139/84 (102) Pulse Ox 95 94 93 O2 Delivery Room Air Room Air Room Air Room Air 03/31/20 03/31/20 03/31/20 07:57 07:58 08:00 Pulse 81 81 Resp 20 B/P (MAP) 147/95 147/95 (112) O2 Delivery Room Air Room Air Intake and Output 03/30/20 03/30/20 03/31/20 15:00 23:00 07:00 Intake Total 480 ml 240 ml 400 ml Balance 480 ml 240 ml 400 ml Justicifation of Admission Dx: Justifications for Admission: Justification of Admission Dx: Yes DHARA PERRY MD Mar 31, 2020 08:41
[2020-03-31 11:08] VITALS: BP 149/91
--- NOTE | 2020-03-31 12:12 | PDOC ---
PROGRESS NOTES Date of Service DATE: 03/31/20 TIME: 12:09 Subjective Subjective POD #2 s/p ACDF C6-7 up in chair was able to ambulate to bathroom today he feels stronger denies pain eating without difficulty Objective Objective Vital Signs Date Time Temp Pulse Resp B/P (MAP) Pulse Ox O2 Delivery O2 Flow Rate FiO2 03/31/20 11:08 97.6 81 18 149/91 (110) 96 Room Air 97.6 03/30/20 06:10 2.0 Intake and Output 03/31/20 07:00 Intake Total 1120 ml Balance 1120 ml Intake Oral 1120 ml # Voids 6 Physical Exam General: Alert, Oriented X3, Cooperative, No acute distress, Other (voice clear) MUSCULOSKELETAL: Other (MEZA) Neuro: Normal speech Skin: Other (dressing C,D,I, flat) Assessment Assessment Problems Medical Problems: (1) Fall Status: Acute (2) Hypokalemia Status: Acute (3) Weakness Status: Acute Plan Plan of Care transfer to rehab today f/u 2 weeks Comment Review of Relevant I have reviewed the following items yessenia (where applicable) has been applied. Labs Laboratory Tests Test 03/31/20 05:15 White Blood Count 8.8 x10^3/uL (4.0-11.0) Red Blood Count 4.41 x10^6/uL (4.30-5.70) Hemoglobin 12.9 g/dL (13.0-17.5) Hematocrit 38.8 % (39.0-53.0) Mean Corpuscular Volume 88 fL (79-100) Mean Corpuscular Hemoglobin 29 pg (25-35) Mean Corpuscular Hemoglobin Concent 33 g/dL (31-37) Red Cell Distribution Width 14.9 % (11.5-14.5) Platelet Count 407 x10^3/uL (140-400) Neutrophils (%) (Auto) 83 % (31-73) Lymphocytes (%) (Auto) 9 % (24-48) Monocytes (%) (Auto) 8 % (0-9) Eosinophils (%) (Auto) 0 % (0-3) Basophils (%) (Auto) 0 % (0-3) Neutrophils # (Auto) 7.2 x10^3/uL (1.8-7.7) Lymphocytes # (Auto) 0.8 x10^3/uL (1.0-4.8) Monocytes # (Auto) 0.7 x10^3/uL (0.0-1.1) Eosinophils # (Auto) 0.0 x10^3/uL (0.0-0.7) Basophils # (Auto) 0.0 x10^3/uL (0.0-0.2) Sodium Level 140 mmol/L (136-145) Potassium Level 4.2 mmol/L (3.5-5.1) Chloride Level 103 mmol/L (98-107) Carbon Dioxide Level 33 mmol/L (21-32) Anion Gap 4 (6-14) Blood Urea Nitrogen 21 mg/dL (8-26) Creatinine 1.0 mg/dL (0.7-1.3) Estimated GFR (Cockcroft-Gault) 87.2 Glucose Level 96 mg/dL (70-99) Calcium Level 8.2 mg/dL (8.5-10.1) C-Reactive Protein, Quantitative 81.4 mg/L (0-3.3) Laboratory Tests Test 03/31/20 05:15 White Blood Count 8.8 x10^3/uL (4.0-11.0) Red Blood Count 4.41 x10^6/uL (4.30-5.70) Hemoglobin 12.9 g/dL (13.0-17.5) Hematocrit 38.8 % (39.0-53.0) Mean Corpuscular Volume 88 fL (79-100) Mean Corpuscular Hemoglobin 29 pg (25-35) Mean Corpuscular Hemoglobin Concent 33 g/dL (31-37) Red Cell Distribution Width 14.9 % (11.5-14.5) Platelet Count 407 x10^3/uL (140-400) Neutrophils (%) (Auto) 83 % (31-73) Lymphocytes (%) (Auto) 9 % (24-48) Monocytes (%) (Auto) 8 % (0-9) Eosinophils (%) (Auto) 0 % (0-3) Basophils (%) (Auto) 0 % (0-3) Neutrophils # (Auto) 7.2 x10^3/uL (1.8-7.7) Lymphocytes # (Auto) 0.8 x10^3/uL (1.0-4.8) Monocytes # (Auto) 0.7 x10^3/uL (0.0-1.1) Eosinophils # (Auto) 0.0 x10^3/uL (0.0-0.7) Basophils # (Auto) 0.0 x10^3/uL (0.0-0.2) Sodium Level 140 mmol/L (136-145) Potassium Level 4.2 mmol/L (3.5-5.1) Chloride Level 103 mmol/L (98-107) Carbon Dioxide Level 33 mmol/L (21-32) Anion Gap 4 (6-14) Blood Urea Nitrogen 21 mg/dL (8-26) Creatinine 1.0 mg/dL (0.7-1.3) Estimated GFR (Cockcroft-Gault) 87.2 Glucose Level 96 mg/dL (70-99) Calcium Level 8.2 mg/dL (8.5-10.1) C-Reactive Protein, Quantitative 81.4 mg/L (0-3.3) Microbiology 03/24/20 Blood Culture - Final, Complete NO GROWTH AFTER 5 DAYS Medications Current Medications Ondansetron HCl (Zofran) 4 mg PRN Q8HRS PRN IV NAUSEA/VOMITING; Start 03/24/20 at 14:45; Stop 03/25/20 at 14:44; Status DC Acetaminophen (Tylenol) 650 mg PRN Q4HRS PRN PO FEVER > 100.3'F; Start 03/24/20 at 14:45; Stop 03/25/20 at 14:44; Status DC Potassium Chloride (Klor-Con) 40 meq 1X ONCE PO Last administered on 03/24/20at 16:06; Start 03/24/20 at 14:45; Stop 03/24/20 at 14:49; Status DC Potassium Chloride (Klor-Con) 40 meq 1X PRN PRN PO SEE COMMENTS; Start 03/24/20 at 19:15 Potassium Bicarbonate (Potassium Effervescent Tablet) 40 meq 1X PRN PRN FT SEE COMMENTS; Start 03/24/20 at 19:15 Acetaminophen/ Hydrocodone Bitart (Lortab 5/325) 1 tab PRN Q4HRS PRN PO MILD PAIN 1-3 Last administered on 03/30/20at 21:52; Start 03/24/20 at 19:15 Docusate Sodium (Colace) 100 mg BID PO Last administered on 03/31/20 07:56; Start 03/24/20 at 21:00 Heparin Sodium (Porcine) (Heparin Sodium) 5,000 unit Q12HR SQ Last administered on 03/27/20at 22:05; Start 03/24/20 at 21:00; Stop 03/28/20 at 07:04; Status DC Potassium Chloride (Klor-Con) 40 meq 1X ONCE PO Last administered on 03/24/20at 22:54; Start 03/24/20 at 19:45; Stop 03/24/20 at 19:46; Status DC Acetaminophen/ Codeine Phosphate (Tylenol #3) 2 tab PRN Q6HRS PRN PO MODERATE PAIN 4-6 Last administered on 03/29/20 21:06; Start 03/24/20 at 23:45 Amlodipine Besylate (Norvasc) 10 mg DAILY PO Last administered on 03/31/20 07:57; Start 03/25/20 at 09:00 Clonidine HCl (Catapres) 0.2 mg QHS PO Last administered on 03/30/20at 21:51; Start 03/25/20 at 00:00 Cyclobenzaprine HCl (Flexeril) 10 mg PRN TID PRN PO MUSCLE PAIN Last administered on 03/30/20at 00:12; Start 03/24/20 at 23:45 Furosemide (Lasix) 40 mg DAILY PO Last administered on 03/31/20 07:56; Start 03/25/20 at 09:00 Potassium Chloride (Klor-Con) 20 meq DAILY PO Last administered on 03/31/20 07:56; Start 03/25/20 at 09:00 Trimethoprim/ Sulfamethoxazole (Bactrim Ds) 1 tab BID PO Last administered on 03/27/20at 22:01; Start 03/25/20 at 09:00; Stop 03/28/20 at 07:01; Status DC Lactobacillus Rhamnosus (Culturelle) 1 cap BID PO ; Start 03/26/20 at 21:00; Status Cancel Dexamethasone Sodium Phosphate (Decadron) 4 mg Q6H IV ; Start 03/27/20 at 16:30; Stop 03/27/20 at 16:29; Status DC Dexamethasone Sodium Phosphate (Decadron) 4 mg Q6H IVP ; Start 03/27/20 at 16:30; Stop 03/28/20 at 14:11; Status DC Dexamethasone (Decadron) 4 mg Q6HRS PO Last administered on 03/30/20at 12:14; Start 03/28/20 at 08:00; Stop 03/30/20 at 12:29; Status DC Bacitracin 14734 unit/Sodium Chloride 1,000 ml @ 1,000 mls/hr 1X ONCE IRR Last administered on 03/29/20at 14:24; Start 03/29/20 at 06:00; Stop 03/29/20 at 06:59; Status DC Cefazolin Sodium/ Dextrose 50 ml @ 100 mls/hr 1X PREOP PRN IV PRIOR TO PROCEDURE Last administered on 03/29/20at 13:45; Start 03/29/20 at 06:00; Stop 03/29/20 at 18:00; Status DC Gelatin (Gelfoam Size 100) 1 each STK-MED ONCE .ROUTE Last administered on 03/29/20at 14:24; Start 03/29/20 at 08:22; Stop 03/29/20 at 08:23; Status DC Bupivacaine HCl/ Epinephrine Bitart (Sensorcain-Epi 0.5%-1:834377 Mpf) 30 ml STK-MED ONCE .ROUTE Last administered on 03/29/20at 14:24; Start 03/29/20 at 08:23; Stop 03/29/20 at 08:23; Status DC Thrombin 20,000 unit STK-MED ONCE TP Last administered on 03/29/20at 14:24; Start 03/29/20 at 08:23; Stop 03/29/20 at 08:23; Status DC Ondansetron HCl (Zofran) 4 mg PRN Q6HRS PRN IV NAUSEA/VOMITING; Start 03/29/20 at 11:45; Stop 03/30/20 at 11:44; Status DC Fentanyl Citrate (Fentanyl 2ml Vial) 25 mcg PRN Q5MIN PRN IV MILD PAIN 1-3; Start 03/29/20 at 11:45; Stop 03/30/20 at 11:44; Status DC Fentanyl Citrate (Fentanyl 2ml Vial) 50 mcg PRN Q5MIN PRN IV MODERATE TO SEVERE PAIN; Start 03/29/20 at 11:45; Stop 03/30/20 at 11:44; Status DC Morphine Sulfate (Morphine Sulfate) 1 mg PRN Q10MIN PRN IV SEVERE PAIN 7-10; Start 03/29/20 at 11:45; Stop 03/30/20 at 11:44; Status DC Ringer's Solution 1,000 ml @ 30 mls/hr Q24H IV ; Start 03/29/20 at 11:38; Stop 03/29/20 at 23:37; Status DC Lidocaine HCl (Xylocaine-Mpf 1% 2ml Vial) 2 ml PRN 1X PRN ID PRIOR TO IV START; Start 03/29/20 at 11:45; Stop 03/30/20 at 11:44; Status DC Hydromorphone HCl (Dilaudid) 0.5 mg PRN Q10MIN PRN IV SEV PAIN, Second choice; Start 03/29/20 at 11:45; Stop 03/30/20 at 11:44; Status DC Prochlorperazine Edisylate (Compazine) 5 mg PACU PRN PRN IV NAUSEA, MRX1; Start 03/29/20 at 11:45; Stop 03/30/20 at 11:44; Status DC Propofol (Diprivan) 200 mg STK-MED ONCE IV ; Start 03/29/20 at 11:59; Stop 03/29/20 at 12:00; Status DC Lidocaine HCl (Lidocaine Pf 2% Vial) 5 ml STK-MED ONCE .ROUTE ; Start 03/29/20 at 11:59; Stop 03/29/20 at 12:00; Status DC Propofol 50 ml @ As Directed STK-MED ONCE IV ; Start 03/29/20 at 11:59; Stop 03/29/20 at 12:00; Status DC Fentanyl Citrate (Fentanyl 2ml Vial) 100 mcg STK-MED ONCE .ROUTE ; Start 03/29/20 at 12:00; Stop 03/29/20 at 12:01; Status DC Succinylcholine Chloride (Anectine) 200 mg STK-MED ONCE .ROUTE ; Start 03/29/20 at 12:00; Stop 03/29/20 at 12:01; Status DC Rocuronium [place] (Zemuron) 50 mg STK-MED ONCE .ROUTE ; Start 9/2/20 at 12:00; Stop 03/29/20 at 12:01; Status DC Remifentanil HCl (Ultiva) 2 mg STK-MED ONCE IV ; Start 03/29/20 at 12:01; Stop 03/29/20 at 12:01; Status DC Phenylephrine HCl (Keanu-Synephrine Inj) 10 mg STK-MED ONCE .ROUTE ; Start 03/29/20 at 13:06; Stop 03/29/20 at 13:06; Status DC Propofol 50 ml @ As Directed STK-MED ONCE IV ; Start 03/29/20 at 13:58; Stop 03/29/20 at 13:58; Status DC Glycopyrrolate (Robinul) 1 mg STK-MED ONCE .ROUTE ; Start 03/29/20 at 14:09; Stop 03/29/20 at 14:10; Status DC Propofol 50 ml @ As Directed STK-MED ONCE IV ; Start 03/29/20 at 15:12; Stop 03/29/20 at 15:13; Status DC Remifentanil HCl (Ultiva) 1 mg STK-MED ONCE IV ; Start 03/29/20 at 15:22; Stop 03/29/20 at 15:22; Status DC Desflurane (Suprane) 90 ml STK-MED ONCE IH ; Start 03/29/20 at 16:33; Stop 03/29/20 at 16:34; Status DC Fentanyl Citrate (Fentanyl 2ml Vial) 50 mcg PRN Q2HR PRN IVP PAIN; Start 03/29/20 at 17:00 Dexamethasone (Decadron) 4 mg Q12H PO Last administered on 03/30/20at 23:32; Start 03/31/20 at 00:00; Stop 04/01/20 at 00:00 Active Scripts Active Decadron (Dexamethasone) 4 Mg Tablet 4 Mg PO Q6HRS 3 Days Konsyl Formula-D Fiber Powder (Psyllium Husk (with Dextrose)) 397 Gm Powder 397 Gm PO DAILY 30 Days Acetaminophen-Cod #3 Tablet (Acetaminophen/Codeine Phosphate) 1 Each Tablet 2 Tab PO PRN Q6HRS PRN 6 Days Reported Cyclobenzaprine Hcl 10 Mg Tablet 10 Mg PO PRN TID PRN Klor-Con M20 (Potassium Chloride) 20 Meq Tab.er.prt 20 Meq PO DAILY Amlodipine Besylate 10 Mg Tablet 10 Mg PO DAILY Clonidine Hcl 0.2 Mg Tablet 1 Tab PO QHS Vitals/I & O Vital Sign - Last 24 Hours 03/30/20 03/30/20 03/30/20 03/30/20 15:03 18:36 19:45 21:51 Temp 98.1 98.0 98.1 98.0 Pulse 84 91 85 Resp 20 18 B/P (MAP) 150/90 (110) 138/84 (102) 150/97 Pulse Ox 96 94 O2 Delivery Room Air Room Air Room Air 03/30/20 03/30/20 03/30/20 03/30/20 21:52 21:52 22:52 23:36 Temp 97.9 98.3 97.9 98.3 Pulse 85 73 Resp 16 16 18 B/P (MAP) 150/97 (114) 129/85 (100) Pulse Ox 93 93 95 O2 Delivery Room Air Room Air Room Air Room Air 03/31/20 03/31/20 03/31/20 03/31/20 02:45 05:52 07:26 07:57 Temp 97.8 98.0 97.8 98.0 Pulse 73 70 81 Resp 16 18 B/P (MAP) 142/88 (106) 139/84 (102) 147/95 Pulse Ox 94 93 O2 Delivery Room Air Room Air Room Air 03/31/20 03/31/20 03/31/20 07:58 08:00 11:08 Temp 97.6 97.6 Pulse 81 81 Resp 20 18 B/P (MAP) 147/95 (112) 149/91 (110) Pulse Ox 96 O2 Delivery Room Air Room Air Room Air Intake and Output 03/30/20 03/30/20 03/31/20 15:00 23:00 07:00 Intake Total 480 ml 240 ml 400 ml Balance 480 ml 240 ml 400 ml Justifications for Admission Other Justification 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
[2020-03-31] MEDS: DEXAMETHASONE 4 MG TABLET PO SCH (12:29)
[2020-03-31 13:12] LABS: ALBUM 2.3 g/dL (2.9-4.4); ALPHA 1 0.6 g/dL (0.0-0.4); BETA 1.1 g/dL (0.7-1.3); GAMMA 1.3 g/dL (0.4-1.8); PROTEIN TOTAL 6.3 g/dL (6.0-8.5); SPEP AG RATIO 0.6 (0.7-1.7)
--- NOTE | 2020-03-31 14:00 | NUR ---
Vu is in better spirits today. left leg is stronger. report called to Daiana at [facility]. questions answered.
--- NOTE | 2020-04-04 11:07 | PATHOLOGY ---
[facility] Accession Number: [id number] . 01 Material submitted: . vertebral column - CERVICAL DISC . 01 Clinical history: . CERVICAL STENOSIS FALL, GENERALIZED WEAKNESS . 02 Diagnosis: Bone and soft tissue "C6-7 cervical disc", excision: - Degenerative changes of fibrocartilage. - Reactive/regenerative changes of hyaline cartilage. - Unremarkable segments of bone. - Negative for malignancy. (ESSENCEK:fletcher; 03/31/2020) [facility] 03/31/2020 1820 Local . 02 Electronically signed: . Elicia Gamble MD, Pathologist NPI- [id number] . 01 Gross description: . Received in formalin labeled "Bias, Naresh, cervical disc" is a 2.5 x 2.0 x 0.4 cm aggregate of pa-white friable soft tissue and scant bone fragments. The specimen is submitted entirely in cassette A1 following decalcification. ([facility] [place] 03/30/2020) [facility] 03/30/2020 1710 Local . 02 Pathologist provided ICD-10: M50.30 . 02 CPT . 415200, 931006 Specimen Comment: A courtesy copy of this report has been sent to [phone], [phone] Specimen Comment: [id number] Specimen Comment: Report sent to / Performed at: 01 [facility] [address], [place] [id number] MD Biju Hou MD Phone: [phone] Performed at: 02 [facility] [address] [place], [place] [id number] MD Gulshan Isidro MD Phone: [phone]
== END 2020-03-31 14:00 | DRG 471 ==
LOC: ER 11:33 → ED HOLD 13:13 → 5 NORTH 13:52 → 4 SOUTHEST 03-29 14:20
PROVIDERS: ADMIT Family Medicine; ATTEND Family Medicine
PROC: 0RG10A0 Fusion of Cervical Vertebral Joint with Interbody Fusion Device, Anterior Approach, Anterior Column, Open Approach (ICD-10-PCS; 2020-03-29)
PROC: 4A11X4G Monitoring of Peripheral Nervous Electrical Activity, Intraoperative, External Approach (ICD-10-PCS; 2020-03-29)
PROC: 0RB30ZZ Excision of Cervical Vertebral Disc, Open Approach (ICD-10-PCS; principal; 2020-03-29 12:30)
DX: M50.20 Other cervical disc displacement, unspecified cervical region (principal); E43 Unspecified severe protein-calorie malnutrition; M47.12 Other spondylosis with myelopathy, cervical region; M48.02 Spinal stenosis, cervical region; M50.020 Cervical disc disorder with myelopathy, mid-cervical region, unspecified level; E87.6 Hypokalemia; G89.29 Other chronic pain; I10 Essential (primary) hypertension; G62.9 Polyneuropathy, unspecified; Z20.828 Contact with and (suspected) exposure to other viral communicable diseases; M25.78 Osteophyte, vertebrae; M06.9 Rheumatoid arthritis, unspecified; W19.XXXA Unspecified fall, initial encounter; Y93.89 Activity, other specified; Y92.098 Other place in other non-institutional residence as the place of occurrence of the external cause; Y99.8 Other external cause status; Z68.32 Body mass index [BMI] 32.0-32.9, adult; Z85.46 Personal history of malignant neoplasm of prostate; Z85.51 Personal history of malignant neoplasm of bladder; Z87.440 Personal history of urinary (tract) infections; Z86.73 Personal history of transient ischemic attack (TIA), and cerebral infarction without residual deficits
CPT/HCPCS: 36415; 70450; 70551; 71045; 72125; 72141; 73030; 76000; 80048; 80053; 81001; 82550; 82607; 83036; 83690; 83735; 84165; 84443; 84484; 85007; 85025; 85610; 85730; 86038; 86140; 87040; 87426; 88304; 88311; 93005; 99285; A7015; C1713; J0330; J0690; J1644; J2370; J2704; J3010; J3490; 97110-GO; 97110-GP; 97116-GP; 97530-GO; 97530-GP; 97535-GO; C1776; G0378; U0003-CS

== ENCOUNTER → 2020-10-03 | Outpatient (CLI) | payer MEDICARE ==
[~2020-10-03] MED LIST changes: +ACET1TAB33 PO; +AMLO-187 PO; -AMLO10TA8 PO; +CYCL10TA2 PO; +DEXA4TAB63 PO; +FURO-68 PO; +POTA20TA4 PO; +SULF1TAB24 PO; +[UNRECOGNIZED DRUG - CODE] PO
--- NOTE | 2020-10-03 17:12 | CARD ---
MR#: [id number] Date of Study: 10/03/2020 Ordering Physician: REY FREEMAN, Referring Physician: REY FREEMAN Tech: Zuleyma Ordonez [facility] APPROVED REPORT EXAM: Two-dimensional and M-mode echocardiogram with Doppler and color Doppler. Other Information Quality : AverageHR: 57bpm Rhythm : NSR INDICATION Dyspnea Hypertension/HCVD RISK FACTORS Hypertension Obesity Hyperlipidemia 2D DIMENSIONS RVDd3.0 (2.9-3.5cm)Left Atrium(2D)3.7 (1.6-4.0cm) IVSd1.1 (0.7-1.1cm)Aortic Root(2D)4.0 (2.0-3.7cm) LVDd5.1 (3.9-5.9cm)LVOT Diameter2.2 (1.8-2.4cm) PWd1.2 (0.7-1.1cm)LVDs3.0 (2.5-4.0cm) FS (%) 40.8 %SV87.1 ml Aortic Valve AoV Peak Chapo.143.3cm/sAoV VTI28.9cm AO Peak GR.8.2mmHgLVOT Peak Chapo.93.5cm/s AO Mean GR.3mmHgAVA (VMAX)2.41cm2 Mitral Valve MV E Brujejml03.6cm/sMV DECEL [id number] MV A Ckrteuvp75.0cm/sE/A Ratio0.7 Tricuspid Valve TR P. [id number]/sTR Peak Gr.18mmHg LEFT VENTRICLE The left ventricle is normal size. There is mild concentric left ventricular hypertrophy. The left ve ntricular systolic function is normal and the ejection fraction is within normal range. Estimated ej ection fraction 55-60%. There is normal LV segmental wall motion. Transmitral Doppler flow pattern is Grade I-abnormal relaxation pattern. RIGHT VENTRICLE The right ventricle is normal size. There is normal right ventricular wall thickness. The right ventr icular systolic function is normal. ATRIA The left atrium size is normal. The right atrium size is normal. The interatrial septum is intact wit h no evidence for an atrial septal defect or patent foramen ovale as noted on 2-D or Doppler imaging. AORTIC VALVE The aortic valve is normal in structure and function. Doppler and Color Flow revealed no significant aortic regurgitation. There is no significant aortic valvular stenosis. MITRAL VALVE The mitral valve is normal in structure and function. There is no evidence of mitral valve prolapse. There is no mitral valve stenosis. Doppler and Color Flow revealed trace mitral valve regurgitation. TRICUSPID VALVE The tricuspid valve is normal in structure and function. Doppler and Color Flow revealed trace tricus pid regurgitation. Estimated PAP 21 mmHg. There is no tricuspid valve stenosis. PULMONIC VALVE The pulmonary valve is normal in structure and function. Doppler and Color Flow revealed trace pulmon ic valvular regurgitation. GREAT VESSELS The aortic root is mildly enlarged. 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 The IVC is normal in size a nd collapses >50% with inspiration. PERICARDIAL EFFUSION There is no evidence of significant pericardial effusion. Critical Notification Critical Value: No <Conclusion> The left ventricle is normal size. The left ventricular systolic function is normal and the ejection fraction is within normal range. Estimated ejection fraction 55-60%. There is mild concentric left ventricular hypertrophy. Doppler and Color Flow revealed no significant aortic regurgitation. There is no significant aortic valvular stenosis. Doppler and Color Flow revealed trace mitral valve regurgitation. Doppler and Color Flow revealed trace tricuspid regurgitation. Estimated PAP 21 mmHg. The aortic root is mildly enlarged. 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 Signed by : Hugh Graham MD Electronically Approved : 10/03/2020 17:12:15
== END ==
LOC: ECHO 12:25
PROVIDERS: ATTEND Internal Medicine Cardiovascular Disease
DX: I51.7 Cardiomegaly (principal)
CPT/HCPCS: 93306